=== PATIENT | female | born 1950 | race Asian ===

== ENCOUNTER 2016-09-06 07:44 | Emergency (ER) | payer MEDICARE, MEDICAID ==
[2016-09-06 07:59] VITALS: BP 131/82
[2016-09-06] MEDS ORDERED: methylPREDNISolone 125 MG* 2 ML VIAL IV ONE (08:39)
[2016-09-06] MEDS ORDERED: Famotidine IV* 10 MG/ML 2 ML (20 mg) IV SLOW PU ONE (08:40)
[2016-09-06] MEDS ORDERED: diPHENhydraMINE IV* 50 MG/ML 1 ml VIAL (BENADRYL) IV ONE (08:40)
--- NOTE | 2016-09-07 19:02 | UC ---
Neil Porras Matthew, scribed for Arabella Meneses MD on 09/06/16 at 0840 . Allergic Reaction HPI - HPI Summary HPI Summary: A 66 y/o female presents to c/o a gradually worsening diffuse hives since a week ago, which has worsened in the last 2 days. Per the daughter, the patient occasionally gets hives "out of the blue". She's had these before. They have dogs and they are unsure of the cause. Associated symptoms include itchiness. She has taken Xyzal without relief. She has numerous allergies and sees an superintendent radio communications. She began taking ibuprofen last night, but does not usually use the medication. Hx of asthma. She has been using her inhaler daily. The patient speaks Maltese and her daughter is translating and the patient agrees and declines a injection molding operator other than her daughter. Pt has lived in this country [place] and indicates she understands me. - History of Current Complaint Chief Complaint: [facility] Stated Complaint: RASH Time Seen by Provider: 09/06/16 08:17 Hx Obtained From: Patient, Family/Molecular Pathologist - The daughter translated for the patient ?: No Onset/Duration: Gradual Onset, Lasting Weeks - 1, Still Present Severity Initially: Moderate Severity Currently: Moderate Pain Intensity: 0 Pain Scale Used: 0-10 Numeric Location: Diffuse - total body Character: Pruritus, Hives Aggrevating Factor(s): Nothing Alleviating Factor(s): Other - Ibuprofen mildly improved the symptoms Associated Signs And Symptoms: Positive: Rash - Diffuse hives. Negative: Chest Pain, Difficulty Breathing, Hoarseness, Lightheadedness, Throat Tightening - Related Hx Possible Reaction To: Unknown - Allergies/Home Medications Allergies/Adverse Reactions: Allergies Allergy/AdvReac Type Severity Reaction Status Date / Time Aspirin Allergy Severe SEVERE Verified 08/31/13 12:17 STOMACH UPSET Shellfish Allergy Allergy Intermediate Rash Verified 08/31/13 12:17 Acetaminophen [From [place]] Allergy Unknown Unknown Verified 08/31/13 12:17 Reaction Details Hydrocodone [From [place]] Allergy Unknown Unknown Verified 08/31/13 12:17 Reaction Details Sulfamethoxazole Allergy Unknown Unknown Verified 08/31/13 12:17 w/Trimethoprim Reaction [From Bactrim] Details SALMON Allergy Unknown Unknown Uncoded 08/31/13 12:17 Reaction Details Home Medications: Home Medications Atorvastatin* [Lipitor 10 MG*] 1 tab PO BEDTIME 09/06/16 [History Confirmed ] Montelukast Sodium TAB* [Singulair 10 MG TAB*] 1 tab PO BEDTIME 09/06/16 [ History Confirmed 09/06/16] PMH/Surg Hx/FS Hx/Imm Hx Endocrine History Of: Denies: Diabetes, Thyroid Disease Cardiovascular History Of: Reports: Hypertension - TAKES MEDICATION Denies: Cardiac Disorders, Pacemaker/ICD Respiratory History Of: Reports: Asthma, Bronchitis Denies: COPD GI/ History Of: Reports: Gastroesophageal Reflux, Kidney Stones Denies: Ulcer Psychological History Of: Reports: Anxiety, Depression Cancer History Of: Denies: Breast Cancer - Surgical History Surgical History: Yes Surgery Procedure, Year, and Place: CATARACTS - Family History Family History: No FHx of breast CA. - Social History Lives: With Family Alcohol Use: None Substance Use Type: None Smoking Status (MU): Never Smoked Tobacco Amount Used/How Often: DEC FROM LUNG CA, PT EXPOSED TO 2ND HAND SMOKE Have You Smoked in the Last Year: No Household Exposure Type: Cigarettes Review of Systems Constitutional: Negative Skin: Other - Diffuse hives - pruritic Eyes: Negative ENT: Negative Respiratory: Negative Cardiovascular: Negative Gastrointestinal: Negative Genitourinary: Negative Motor: Negative Neurovascular: Negative Musculoskeletal: Negative Neurological: Negative Psychological: Negative All Other Systems Reviewed And Are Negative: Yes Physical Exam Triage Information Reviewed: Yes Appearance: Well-Appearing, Well-Nourished, Pain Distress - mild Vital Signs: Initial Vital Signs Temp 96.9 F 09/06/16 07:53 Pulse 93 09/06/16 07:53 Resp 16 09/06/16 07:53 BP 131/82 09/06/16 07:53 Pulse Ox 98 09/06/16 07:53 Vital Signs Reviewed: Yes Eyes: Positive: Conjunctiva Clear ENT: Positive: Normal ENT inspection, Pharynx normal Neck: Positive: Supple Respiratory: Positive: Chest non-tender, Lungs clear, Normal breath sounds, No respiratory distress Cardiovascular: Positive: RRR, No Murmur, Pulses Normal, Brisk Capillary Refill Abdomen Description: Positive: Nontender, Soft Musculoskeletal: Positive: Strength Intact, ROM Intact Neurological: Positive: Alert, Muscle Tone Normal Psychological Exam: Normal Skin Exam: Other - total body urticaria, which is worst on the back Re-Evaluation - Re-Evaluation First Eval Re-Evaluation Time: 09:38 Change: Improved Comment: Hives and itching have improved. The patient is willing to go home. Allergic Reaction Course/Dx - Course Course Of Treatment: Pt treated with IV benadryl 50mg, solumedrol 125mg and pepcid 20mg with improvement. Pt and daughter agree to discharge after noting the improvement - Differential Dx/Diagnosis Differential Diagnosis/HQI/PQRI: Anaphylaxis, Local Allergic Reaction, Urticaria Provider Diagnoses: allergic urticaria Discharge - Discharge Plan Condition: Stable Disposition: HOME Prescriptions: Famotidine TAB 40 MG(NF) [Pepcid TAB 40 MG(NF)] 40 mg PO DAILY #12 tab predniSONE TAB* [Deltasone TAB*] 10 mg PO DAILY #30 tab Patient Education Materials: Famotidine (By mouth), Prednisone (By mouth), Urticaria (ED), Allergies (ED) Referrals: Constance Lares MD [Primary Care Provider] - Additional Instructions: You should take Benadryl 50mg 4 times daily for the next 48 hours than as needed. Your dose in urgent care was at 9am. You may take it as close as every four hours. You can also continue to take xyzal as prescribed in conjunction with the Benadryl. Take the famotidine and prednisone as directed, starting tomorrow. Your blood pressure was mildly elevated today. Please be sure to have this checked again within one month with your primary care provider. RETURN TO URGENT CARE FOR ANY NEW OR WORSENING SYMPTOMS The documentation as recorded by the Neil samuels Matthew accurately reflects the service I personally performed and the decisions made by me, Arabella Meneses MD.
== END 2016-09-06 09:56 | disposition home or self-care (01) ==
LOC: UCEAST 07:44
DX: L50.0 Allergic urticaria (principal); I10 Essential (primary) hypertension; J45.909 Unspecified asthma, uncomplicated; K21.9 Gastro-esophageal reflux disease without esophagitis; F41.8 Other specified anxiety disorders; Z98.49 Cataract extraction status, unspecified eye; Z88.2 Allergy status to sulfonamides; Z88.6 Allergy status to analgesic agent; Z88.5 Allergy status to narcotic agent; Z91.013 Allergy to seafood; Z87.442 Personal history of urinary calculi; Z77.22 Contact with and (suspected) exposure to environmental tobacco smoke (acute) (chronic)
CPT/HCPCS: 96374; 96376; 99212; G0463; J1200; J2930

== ENCOUNTER 2016-09-07 22:44 | Emergency (ER) | payer MEDICARE, MEDICAID ==
[2016-09-07] MEDS ORDERED: Famotidine IV* 10 MG/ML 2 ML (20 mg) IV ONE (22:50)
[2016-09-07] MEDS ORDERED: methylPREDNISolone 125 MG* 2 ML VIAL IV ONE (22:50)
[2016-09-07] MEDS ORDERED: diPHENhydraMINE IV* 50 MG/ML 1 ml VIAL (BENADRYL) IV ONE (22:50)
[2016-09-07] MEDS ORDERED: EPINEPHrine AMP 1 MG/ML IM ONE (22:59)
[2016-09-07] MEDS ORDERED: EPINEPHrine AMP 1 MG/ML ONE (23:01)
[2016-09-07] MEDS ORDERED: NS 0.9% 1000 ML* 1,000 ML IV SCH (23:15)
[2016-09-08 00:34] VITALS: BP 115/51
[2016-09-08 02:15] LABS: Add Diff/Slide Review? Slide Review Added; Comments Flag Yes; Hematocrit 36 % (35-47); Mean Corpuscular HGB Conc 33 g/dl (31-36); Mean Corpuscular Hemoglobin 30 pg (27-31); Mean Corpuscular Volume 89 fL (80-97); Mean Platelet Volume 9 um3 (7.4-10.4); Red Blood Count 4.06 10^6/ul (4.0-5.4); Red Cell Distribution Width 14 % (10.5-15); White Blood Count 13.9 10^3/ul (3.5-10.8)
[2016-09-08 02:32] LABS: Albumin 3.6 g/dL (3.2-5.2); C Reactive Protein 23.25 mg/L (< 5.00); Calcium 8.5 mg/dL (8.6-10.3); EGFR African American 109.8 (>60); EGFR Non-African American 85.4 (>60); Total Bilirubin 0.5 mg/dL (0.2-1.0); Total Protein 6.6 g/dL (6.4-8.9)
[2016-09-08 02:34] LABS: Potassium 3.7 mmol/L (3.5-5.0)
[2016-09-08 03:04] LABS: TSH (Thyroid Stimulating Horm) 0.69 mcIU/mL (0.34-5.60)
[2016-09-08] MEDS ORDERED: hydrOXYzine HCL TAB* 50 MG PO ONE (03:19)
[2016-09-08] MEDS ORDERED: predniSONE TAB* 20 MG PO ONE (03:21)
--- NOTE | 2016-09-08 03:30 | ED ---
Gerardo Porras Salem, scribed for Florentino Ferguson MD on 09/07/16 at 2305 . Allergic Reaction/Systemic - HPI Summary HPI Summary: Patient is a 66 y/o female who presents to the ED with an allergic reaction. Her daughter present at the bedside reports that pt had a small rash and hives 8 days ago that flared up 2 days ago. Daughter took pt to at that point and was given a steroid, Benadryl, and Pepcid with alleviation of sx. She then went home with a steroid and prednisone (to take every four hours), Benadryl (4 tables per day). She was no given epinephrine. She reports hives, pruritus, throat tightening, swollen lips, and coughing. Pt has been on numerous medications for quite some time, but daughter reports that she started Atorvastatin two months ago. Pt takes her medications before bed, but has not taken anything except Atorvastatin tonight. She also reports using a new peppermint scented soap and drinking a new type of tea this week. - History of Current Complaint Chief Complaint: EDAllergicReaction Time Seen by Provider: 09/07/16 22:50 Hx Obtained From: Patient, Family/Tobacco [place] Measurer Onset/Duration: Gradual Onset, Started days ago, Still Present Timing: Intermittent Severity Initially: Moderate Severity Currently: Moderate Pain Intensity: 0 Pain Scale Used: 0-10 Numeric Location: Diffuse Character: Swelling, Pruritus, Hives Aggravating Factor(s): Other - Unknown. Alleviating Factor(s): OTC Meds, Antihistamines Associated Signs And Symptoms: Positive: Throat Tightening, Other: - Hives, pruritus, swollen lips, and coughing. - Allergies/Home Medications Allergies/Adverse Reactions: Allergies Allergy/AdvReac Type Severity Reaction Status Date / Time Aspirin Allergy Severe SEVERE Verified 08/31/13 12:17 STOMACH UPSET Shellfish Allergy Allergy Intermediate Rash Verified 08/31/13 12:17 Acetaminophen [From [place]] Allergy Unknown Unknown Verified 08/31/13 12:17 Reaction Details Hydrocodone [From [place]] Allergy Unknown Unknown Verified 08/31/13 12:17 Reaction Details Sulfamethoxazole Allergy Unknown Unknown Verified 08/31/13 12:17 w/Trimethoprim Reaction [From Bactrim] Details SALMON Allergy Unknown Unknown Uncoded 08/31/13 12:17 Reaction Details PMH/Surg Hx/FS Hx/Imm Hx Endocrine/Hematology History: Denies: Hx Diabetes, Hx Thyroid Disease Cardiovascular History: Reports: Hx Hypertension - TAKES MEDICATION Denies: Hx Pacemaker/ICD Respiratory History: Reports: Hx Asthma, Other Respiratory Problems/Disorders Denies: Hx Chronic Obstructive Pulmonary Disease (COPD) GI History: Denies: Hx Ulcer History: Reports: Hx Kidney Stones Musculoskeletal History: Reports: Other Musculoskeletal History - pain all-over , gives out when walking,sudden X2 weeks\ Sensory History: Reports: Hx Cataracts - BILAT, Hx Contacts or Glasses - GLASSES , Hx Glaucoma Denies: Hx Hearing Aid Opthamlomology History: Reports: Hx Cataracts - BILAT, Hx Contacts or Glasses - GLASSES, Hx Glaucoma Psychiatric History: Reports: Hx Anxiety, Hx Depression, Hx Panic Disorder - ANXIETY - Cancer History Hx Chemotherapy: No Hx Radiation Therapy: No - Surgical History Surgery Procedure, Year, and Place: CATARACTS Hx Anesthesia Reactions: No Infectious Disease History: Denies: Hx Clostridium Difficile, Hx Hepatitis, Hx Human Immunodeficiency Virus (HIV), Hx of Known/Suspected MRSA, Hx Shingles, Hx Tuberculosis, Hx Known/ Suspected VRE, Hx Known/Suspected VRSA, History Other Infectious Disease, Traveled Outside the [place] in Last 30 Days - Family History Known Family History: Positive: Other - No Fhx of breast CA. - Social History Alcohol Use: None Hx Substance Use: No Substance Use Type: Reports: None Hx Tobacco Use: No Smoking Status (MU): Never Smoked Tobacco Amount Used/How Often: DEC FROM LUNG CA, PT EXPOSED TO 2ND HAND SMOKE Have You Smoked in the Last Year: No Review of Systems Positive: Other - Hives, pruritus, throat tightening, and swollen lips. Positive: Cough All Other Systems Reviewed And Are Negative: Yes Physical Exam Triage Information Reviewed: Yes Vital Signs On Initial Exam: Initial Vitals Temp Pulse Resp BP Pulse Ox 99.2 F 96 24 112/95 100 09/07/16 22:46 09/07/16 22:46 09/07/16 22:46 09/07/16 22:46 09/07/16 22:46 Vital Signs Reviewed: Yes Appearance: Positive: Well-Appearing, No Pain Distress Skin: Positive: Warm, Skin Color Reflects Adequate Perfusion, Dry, Other - Hives everywhere. Head/Face: Positive: Normal Head/Face Inspection Eyes: Positive: EOMI, CALEB Neck: Positive: Supple, Nontender Respiratory/Lung Sounds: Positive: Breath Sounds Present, Other - Poor air flow. In obvious respiratory distress. Coughing. Cardiovascular: Positive: RRR Abdomen Description: Positive: Nontender, Soft Musculoskeletal: Positive: Normal, Strength/ROM Intact Neurological: Positive: Normal, Sensory/Motor Intact, Alert, Oriented to Person Place, Time Psychiatric: Positive: Affect/Mood Appropriate Diagnostics - Vital Signs Vital Signs Temp Pulse Resp BP Pulse Ox 09/07/16 22:46 99.2 F 96 24 112/95 100 - Laboratory Lab Results: Lab Results 09/08/16 09/08/16 09/08/16 Range/Units 02:05 02:05 02:05 WBC 13.9 H (3.5-10.8) 10^3/ul RBC 4.06 (4.0-5.4) 10^6/ul Hgb 12.0 (12.0-16.0) g/dl Hct 36 (35-47) % MCV 89 (80-97) fL MCH 30 (27-31) pg MCHC 33 (31-36) g/dl RDW 14 (10.5-15) % Plt Count 191 (150-450) 10^3/ul MPV 9 (7.4-10.4) um3 Neut % (Auto) 91.8 H (38-83) % Lymph % (Auto) 4.3 L (25-47) % [place] % (Auto) 3.4 (1-9) % Eos % (Auto) 0.1 (0-6) % Baso % (Auto) 0.4 (0-2) % Absolute Neuts (auto) 12.8 H (1.5-7.7) 10^3/ul Absolute Lymphs (auto) 0.6 L (1.0-4.8) 10^3/ul Absolute Monos (auto) 0.5 (0-0.8) 10^3/ul Absolute Eos (auto) 0 (0-0.6) 10^3/ul Absolute Basos (auto) 0 (0-0.2) 10^3/ul Absolute Nucleated RBC 0 10^3/ul Nucleated RBC % 0 INR (Anticoag Therapy) 0.85 L (0.89-1.11) APTT 22.7 L (26.0-36.3) seconds Sodium 138 (133-145) mmol/L Potassium 3.7 (3.5-5.0) mmol/L Chloride 109 (101-111) mmol/L Carbon Dioxide 22 (22-32) mmol/L Anion Gap 7 (2-11) mmol/L BUN 20 (6-24) mg/dL Creatinine 0.69 (0.51-0.95) mg/dL Est GFR ( Amer) 109.8 (>60) Est GFR (Non-Af Amer) 85.4 (>60) BUN/Creatinine Ratio 29.0 H (8-20) Glucose 117 H (70-100) mg/dL Lactic Acid (0.5-2.0) mmol/L Calcium 8.5 L (8.6-10.3) mg/dL Total Bilirubin 0.50 (0.2-1.0) mg/dL AST 21 (13-39) U/L ALT 17 (7-52) U/L Alkaline Phosphatase 36 (34-104) U/L Total Creatine Kinase 72 (10-223) U/L C-Reactive Protein 23.25 H (< 5.00) mg/L Total Protein 6.6 (6.4-8.9) g/dL Albumin 3.6 (3.2-5.2) g/dL Globulin 3.0 (2-4) g/dL Albumin/Globulin Ratio 1.2 (1-3) Lipase 12 (11.0-82.0) U/L TSH 0.69 (0.34-5.60) mcIU/mL 09/08/16 Range/Units 02:05 WBC (3.5-10.8) 10^3/ul RBC (4.0-5.4) 10^6/ul Hgb (12.0-16.0) g/dl Hct (35-47) % MCV (80-97) fL MCH (27-31) pg MCHC (31-36) g/dl RDW (10.5-15) % Plt Count (150-450) 10^3/ul MPV (7.4-10.4) um3 Neut % (Auto) (38-83) % Lymph % (Auto) (25-47) % [place] % (Auto) (1-9) % Eos % (Auto) (0-6) % Baso % (Auto) (0-2) % Absolute Neuts (auto) (1.5-7.7) 10^3/ul Absolute Lymphs (auto) (1.0-4.8) 10^3/ul Absolute Monos (auto) (0-0.8) 10^3/ul Absolute Eos (auto) (0-0.6) 10^3/ul Absolute Basos (auto) (0-0.2) 10^3/ul Absolute Nucleated RBC 10^3/ul Nucleated RBC % INR (Anticoag Therapy) (0.89-1.11) APTT (26.0-36.3) seconds Sodium (133-145) mmol/L Potassium (3.5-5.0) mmol/L Chloride (101-111) mmol/L Carbon Dioxide (22-32) mmol/L Anion Gap (2-11) mmol/L BUN (6-24) mg/dL Creatinine (0.51-0.95) mg/dL Est GFR ( Amer) (>60) Est GFR (Non-Af Amer) (>60) BUN/Creatinine Ratio (8-20) Glucose (70-100) mg/dL Lactic Acid 1.5 (0.5-2.0) mmol/L Calcium (8.6-10.3) mg/dL Total Bilirubin (0.2-1.0) mg/dL AST (13-39) U/L ALT (7-52) U/L Alkaline Phosphatase (34-104) U/L Total Creatine Kinase (10-223) U/L C-Reactive Protein (< 5.00) mg/L Total Protein (6.4-8.9) g/dL Albumin (3.2-5.2) g/dL Globulin (2-4) g/dL Albumin/Globulin Ratio (1-3) Lipase (11.0-82.0) U/L TSH (0.34-5.60) mcIU/mL Result Diagrams: 09/08/16 02:05 09/08/16 02:05 Lab Statement: Any lab studies that have been ordered have been reviewed, and results considered in the medical decision making process. Re-Evaluation - Re-Evaluation First Eval Re-Evaluation Time: 22:55 Second Eval Re-Evaluation Time: 23:05 Third Eval Re-Evaluation Time: 03:04 Allergic Reaction Course/Dx - Course Course Of Treatment: CRITICAL CARE TIME LESS THAN 30 MINUTES. INITIALLY, PATIENT HAD AIRWAY INVOLVEMENT. THIS IMPROVED AFTER EPI IM. NO FURTHER AIRWAY INVOLVMENT IN ED. PATIENT CONTINUES TO HAVE PURITIC HIVES. WILL ADD ATARAX 50MG PO QID AND IONCREASE THE PREDNISONE TO 60MG A DAY FOR 2 DAYS. F/U WITH PMD TODAY. ALSO SEEK DERM F/U. RETURN IF WORSE. NO OBVIOUS SYSTEMIC ILLNESS AT THIS TIME. DISCUSSED POSSIBLE ALLERGENS TO INCLUDE HOME MEDS/SOAPS/FOOD. DISCHARGE HOME STABLE. - Diagnoses Provider Diagnoses: Allergic reaction Discharge - Discharge Plan Condition: Stable Disposition: HOME Prescriptions: Epinephrine [Epipen 2-Pepe] 0.3 mg IM ONCE PRN #1 inj PRN Reason: Allergy Symptoms hydrOXYzine HCL TAB* [Atarax TAB 50 MG *] 50 mg PO QID PRN #30 tab PRN Reason: Allergy Symptoms Patient Education Materials: General Allergic Reaction (ED) Referrals: Constance Lares MD [Primary Care Provider] - Additional Instructions: FOLLOW UP WITH YOUR DOCTOR. CALL DR LARES TODAY FOR FOLLOW UP. DISCUSS SEEING A MANAGER TRANSPORTATION WITH DR LARES. RETURN TO THE EMERGENCY DEPARTMENT FOR ANY WORSENING OF YOUR CONDITION; DIFFICULTY BREATHING OR SWALLOWING, YOU FEEL ILL OR QUESTIONS OR CONCERNS. The documentation as recorded by the Gerardo samuels Salem accurately reflects the service I personally performed and the decisions made by me, Florentino Ferguson MD.
== END 2016-09-08 04:06 | disposition home or self-care (01) ==
LOC: ED 22:44
DX: R07.0 Pain in throat (principal); L50.9 Urticaria, unspecified; L29.9 Pruritus, unspecified; T78.40XA Allergy, unspecified, initial encounter; X58.XXXA Exposure to other specified factors, initial encounter; R05 Cough
CPT/HCPCS: 36415; 80053; 82550; 83605; 83690; 84443; 85025; 85610; 85730; 86140; 96374; 96375; 99283; A9270-GY; J0171; J1200; J2930; J7512

== ENCOUNTER 2016-09-08 22:13 | Inpatient (IN) | payer MEDICARE, MEDICAID ==
[2016-09-08] MEDS ORDERED: methylPREDNISolone 125 MG* 2 ML VIAL ONE (22:29)
[2016-09-08] MEDS ORDERED: diPHENhydraMINE IV* 50 MG/ML 1 ml VIAL (BENADRYL) ONE (22:29)
[2016-09-08] MEDS ORDERED: diPHENhydraMINE IV* 50 MG/ML 1 ml VIAL (BENADRYL) IV ONE (22:32)
[2016-09-08] MEDS ORDERED: methylPREDNISolone 125 MG* 2 ML VIAL IV ONE (22:32)
[2016-09-08] MEDS ORDERED: EPINEPHrine AMP 1 MG/ML IM ONE (23:16)
[2016-09-08] MEDS ORDERED: EPINEPHrine AMP 1 MG/ML ONE (23:17)
--- NOTE | 2016-09-09 00:43 | HP ---
H&P (Free Text) History and Physical: PCP: Gurwinder Lares MD Date/Time of Evaluation: 09/09/2016 0020 CC: rash, lip swelling HPI: Mrs Portillo is a 66YO [place] female with borderline [place] skills whose daughter is present for assistance. This is her 3rd presentation for generalized pruritic urticarial rash. She was seen initially by Maribel Meneses MD at urgent care 09/06/2016 for worsening pruritic hives of 1week duration which she had had before. She has a HX of numerous allergies and follows with an professional fee coder. She was diagnosed with allergic urticaria, treated with IV diphenhydramine, IV methylprednisolone, & famotidine with improvement and discharged on prednisone & diphenhydramine. She represented to [facility] [place] being seen by Yash [facility] [place] ED reporting worsening hives, throat tightness , swollen lips, & cough. Atorvastatin was noted to be her newest medication started 2 months previously. Administration of epinephrine alleviated her airway symptoms. Allergic reaction was diagnosed and she was discharged with an Epi-pen, increased prednisone, & hydroxyzine. Tonight she had return of the swollen lips, mild throat tightness, and worsening of her pruritic urticaria. At some point, she had been advised to stop her losartan of which her last dose was 09/07. There is no report of F/C, sweats, cough, congestion, chest pain, N/V /D, or other issues. WBCs are 17k 82% neutrophils which is not surprising given the recent steroids. K+ is 3.0. CRP is 37. ECG is NSR rate 68, no ischemia. PMedHx asthma HTN HLD osteoporosis OA multiple allergies Ambulatory Orders Alendronate Sodium 1 tab PO WEEKLY 06/15/13 Budesonide-Formoterol Fumarate [Symbicort 160-4.5 Mcg/Act] 2 puff IN BID Losartan Potassium 100 mg PO DAILY 06/15/13 Sertraline HCl 150 mg PO DAILY 06/15/13 Cetirizine HCl 5 mg PO DAILY 08/31/13 Diclofenac Sodium EC TAB* 50 mg PO BID 08/31/13 Albuterol Sulfate [Proair Hfa] 1 puff IN QID PRN 12/07/13 Atorvastatin* [Lipitor 10 MG*] 1 tab PO BEDTIME 09/06/16 Famotidine TAB 40 MG(NF) [Pepcid TAB 40 MG(NF)] 40 mg PO DAILY #12 tab 09/06/16 Montelukast Sodium TAB* [Singulair 10 MG TAB*] 1 tab PO BEDTIME 09/06/16 predniSONE TAB* [Deltasone TAB*] 10 mg PO DAILY #30 tab 09/06/16 Epinephrine [Epipen 2-Pepe] 0.3 mg IM ONCE PRN #1 inj 09/08/16 hydrOXYzine HCL TAB* [Atarax TAB 50 MG *] 50 mg PO QID PRN #30 tab 09/08/16 Allergies Aspirin Allergy (Severe, Verified 08/31/13 12:17) SEVERE STOMACH UPSET Shellfish Allergy Allergy (Intermediate, Verified 08/31/13 12:17) Rash Acetaminophen [From [place]] Allergy (Unknown, Verified 08/31/13 12:17) Unknown Reaction Details Hydrocodone [From [place]] Allergy (Unknown, Verified 08/31/13 12:17) Unknown Reaction Details Sulfamethoxazole w/Trimethoprim [From Bactrim] Allergy (Unknown, Verified 12:17) Unknown Reaction Details SALMON Allergy (Unknown, Uncoded 08/31/13 12:17) Unknown Reaction Details PSurgHx denies SocHx: no tobacco, alcohol, or recreational drugs; full code status FamHx: positive for HTN, HLD ROS: as above, otherwise reviewed and all were negative Constitutional: NAD, normally developed, overweight [place] female vitals: Vital Signs Temp 37.4 C 09/08/16 23:22 Pulse 88 09/09/16 03:00 Resp 19 09/09/16 03:00 BP 137/74 09/09/16 03:00 Pulse Ox 96 09/09/16 03:00 Intake & Output 09/08/16 09/08/16 09/09/16 11:59 23:59 11:59 Intake Total 4 Balance 4 Weight 61.235 kg Intake: IV Fluids 4 HEENM: atraumatic; sclera/conjunctiva: non-icteric/clear; hearing: clinically intact; oropharynx: clear, mucosa moist Neck: soft tissue: non-tender; thyroid: normal Pulmonary: clear to auscultation bilaterally, no strider, good aeration, no accessory muscle use CV: RR/RR, normal S1S2, no carotid bruit, no jugular venous distention, 2+ B DP/ PT, no edema Abdominal: soft, non-distended, non-tender, no rebound/guarding/rigidity, normoactive bowel sounds, no hepatosplenomegaly or masses, no costovertebral angle tenderness Musculoskeletal: general: grossly intact; gait: stable Integumental: diffuse urticaria worst on torso but involving extremities x4 with areas of excoriation Psychiatric orientation: AA&O to PPS affect: calm mood: cooperative eye contact: fair to good content: reliable responses: [place] understanding appears better than production insight: fair Testing: Lab Results 09/09/16 09/09/16 09/09/16 Range/Units 01:55 01:55 01:55 WBC 17.1 H (3.5-10.8) 10^3/ul RBC 4.31 (4.0-5.4) 10^6/ul Hgb 12.5 (12.0-16.0) g/dl Hct 38 (35-47) % MCV 89 (80-97) fL MCH 29 (27-31) pg MCHC 33 (31-36) g/dl RDW 14 (10.5-15) % Plt Count 246 (150-450) 10^3/ul MPV 9 (7.4-10.4) um3 Neut % (Auto) 82.9 (38-83) % Lymph % (Auto) 11.3 L (25-47) % [place] % (Auto) 5.7 (1-9) % Eos % (Auto) 0 (0-6) % Baso % (Auto) 0.1 (0-2) % Absolute Neuts (auto) 14.2 H (1.5-7.7) 10^3/ul Absolute Lymphs (auto) 1.9 (1.0-4.8) 10^3/ul Absolute Monos (auto) 1.0 H (0-0.8) 10^3/ul Absolute Eos (auto) 0 (0-0.6) 10^3/ul Absolute Basos (auto) 0 (0-0.2) 10^3/ul Absolute Nucleated RBC 0.01 10^3/ul Nucleated RBC % 0.1 ESR 32 (0-40) mm/Hr INR (Anticoag Therapy) 0.86 L (0.89-1.11) Sodium 142 (133-145) mmol/L Potassium 3.0 L (3.5-5.0) mmol/L Chloride 108 (101-111) mmol/L Carbon Dioxide 20 L (22-32) mmol/L Anion Gap 14 H (2-11) mmol/L BUN 18 (6-24) mg/dL Creatinine 0.75 (0.51-0.95) mg/dL Est GFR ( Amer) 99.7 (>60) Est GFR (Non-Af Amer) 77.6 (>60) BUN/Creatinine Ratio 24.0 H (8-20) Glucose 169 H (70-100) mg/dL Calcium 8.9 (8.6-10.3) mg/dL C-Reactive Protein 37.96 H (< 5.00) mg/L ECG, personally reviewed: NSR rate 68, no ischemia Impression: 66F presenting with angioneurotic edema 2nd losartan DIAGNOSIS & PLAN Primary angioneurotic edema 2nd losartan : remain off losartan : continue IV methylprednisolone, PO famotidine, & PO hydroxyzine : informed patient/daughter the 1/2 life of losartan can be up to about 10hours and her symptoms could continue until 5-10 1/2 lives have passed (2 to 4 days) : supportive care Secondary HTN : monitor & initiate alternative agent as indicated HLD : continue atorvastatin asthma : albuterol nebs PRN Admission Rational: observation for angioneurotic edema w/ airway symptoms DVTp: heparin SQ Code Status: full HCP: daughter
[2016-09-09] MEDS ORDERED: Famotidine IV* 10 MG/ML 2 ML (20 mg) IV SLOW PU ONE (01:16)
[2016-09-09] MEDS ORDERED: EPINEPHrine AMP 1 MG/ML IM ONE (01:17)
[2016-09-09] MEDS ORDERED: Famotidine IV* 10 MG/ML 2 ML (20 mg) ONE (01:19)
[2016-09-09 02:49] LABS: Hematocrit 38 % (35-47); Hemoglobin 12.5 g/dl (12.0-16.0); Mean Corpuscular HGB Conc 33 g/dl (31-36); Mean Corpuscular Hemoglobin 29 pg (27-31); Mean Corpuscular Volume 89 fL (80-97); Mean Platelet Volume 9 um3 (7.4-10.4); Red Blood Count 4.31 10^6/ul (4.0-5.4); Red Cell Distribution Width 14 % (10.5-15); White Blood Count 17.1 10^3/ul (3.5-10.8)
[2016-09-09 03:00] LABS: C Reactive Protein 37.96 mg/L (< 5.00); Calcium 8.9 mg/dL (8.6-10.3); EGFR African American 99.7 (>60); EGFR Non-African American 77.6 (>60)
[2016-09-09 03:32] LABS: Erythrocyte Sed Rate 32 mm/Hr (0-40)
[2016-09-09] MEDS ORDERED: Melatonin (NF) 3 MG TAB PO PRN (04:04)
[2016-09-09] MEDS ORDERED: LORazepam INJ* 2 MG/ML 1 ML VIAL IV PRN (04:04)
[2016-09-09] MEDS ORDERED: Albuterol 2.5 MG/3 ML NEB.SOL* (0.083%) INH PRN (04:04)
[2016-09-09] MEDS ORDERED: Ondansetron INJ* 2 MG/ML VIAL IV PRN (04:04)
[2016-09-09] MEDS ORDERED: Omeprazole CAP* 20 MG PO SCH (06:00)
[2016-09-09] MEDS ORDERED: Potassium Chlor TAB* 20 MEQ TAB.ER PO ONE (06:00)
[2016-09-09] MEDS: hydrOXYzine HCL TAB* 50 MG PO PRN ×3 (06:00→20:24)
[2016-09-09] MEDS: Famotidine TAB* 20 MG PO SCH ×4 (07:59→20:20)
[2016-09-09] MEDS ORDERED: Docusate CAP* 100 MG PO PRN (08:25)
--- NOTE | 2016-09-09 08:32 | PN ---
Subjective Date of Service: 09/09/16 Interval History: CC: hives and mouth/lip swelling Pt states overall her mouth swelling is improved. She denies any tongue swelling. No SOB. She states he is very itchy everywhere. She does describe having some pain in her mouth. Objective Active Medications: Albuterol (Ventolin 2.5 Mg/3 Ml Neb.Natalie*) 2.5 mg INH Q2H PRN PRN Reason: SOB/WHEEZING Famotidine (Pepcid Tab*) 20 mg PO QID [facility] Last Admin: 09/09/16 07:59 Dose: 20 mg Heparin Sodium (Porcine) (Heparin Vial(*)) 5,000 units SUBCUT Q8HR [facility] Hydroxyzine HCl (Atarax Tab*) 50 mg PO Q6H PRN PRN Reason: hives/itching Last Admin: 09/09/16 06:00 Dose: 50 mg Melatonin (Melatonin (Nf)) 3 mg PO BEDTIME PRN; Protocol PRN Reason: Sleep Methylprednisolone Sodium Succinate (Solu-Medrol 40 Mg) 40 mg IV Q8H [facility] Ondansetron HCl (Zofran Inj*) 4 mg IV Q6H PRN PRN Reason: NAUSEA Vital Signs 09/09/16 09/09/16 09/09/16 00:30 01:00 01:31 Temperature Pulse Rate 83 80 76 Respiratory 15 21 18 Rate Blood Pressure 137/73 144/112 168/76 (mmHg) O2 Sat by Pulse 97 97 100 Oximetry 09/09/16 09/09/16 09/09/16 02:00 02:30 03:00 Temperature Pulse Rate 89 78 88 Respiratory 16 15 19 Rate Blood Pressure 130/63 119/64 137/74 (mmHg) O2 Sat by Pulse 95 94 96 Oximetry 09/09/16 09/09/16 03:42 04:00 Temperature 98.2 F 98.2 F Pulse Rate 71 71 Respiratory 18 16 Rate Blood Pressure 127/64 127/64 (mmHg) O2 Sat by Pulse 99 99 Oximetry Oxygen Devices in Use Now: None Appearance: Middle aged female lying in bed, NAD Eyes: No Scleral Icterus Ears/Nose/Mouth/Throat: Mucous Membranes Moist Respiratory: Symmetrical Chest Expansion and Respiratory Effort, Clear to Auscultation Cardiovascular: NL Sounds; No Murmurs; No JVD, RRR, No Edema Abdominal: NL Sounds; No Tenderness; No Distention Extremities: No Clubbing, Cyanosis Skin: No Nodules or Sclerosis, - - diffuse urticarial rash on arms, neck, chest , abdomen, back, less prominent on the legs Neurological: Alert and Oriented x 3 Result Diagrams: 09/09/16 01:55 09/09/16 01:55 Assess/Plan/Problems-Billing Ms Portillo is a 66 yo F who has a h/o HTN, HLD and asthma who presented to the ER with c/o hives and mouth/lip swelling that has progressed despite being on prednisone. - Patient Problems (1) Angioedema Current Visit: Yes Status: Acute Code(s): T78.3XXA - ANGIONEUROTIC EDEMA, INITIAL ENCOUNTER SNOMED Code(s): 85807890 Comment: The patient was felt to have developed angioedema and hives secondary to losartan. She had been on this medication for about 2 years. It is not clear however it this truly is what has lead to her angioedema/allergic reaction. THe losartan has been discontinued and she should never go back on this class of medication. Will continue solumedrol 40mg IV q8hr, famotidine, benadryl and atarax. Her mouth/lip swelling has improved. She no longer feels any throat tightness. Will monitor closely for signs of airway compromise. (2) HTN (hypertension) Current Visit: Yes Status: Acute Code(s): I10 - ESSENTIAL (PRIMARY) HYPERTENSION SNOMED Code(s): 90755862 Comment: BP is under good control not on any antihypertensive medications. Continue to monitor. (3) HLD (hyperlipidemia) Current Visit: Yes Status: Acute Code(s): E78.5 - HYPERLIPIDEMIA, UNSPECIFIED SNOMED Code(s): 33474615 Comment: Lipitor on hold as this was her newest medication and initially the hives were attributed to this. Will continue to hold lipitor until her allergic reaction has resolved and then the lipitor can be attempted to be added back. (4) Asthma Current Visit: Yes Status: Acute Code(s): J45.909 - UNSPECIFIED ASTHMA, UNCOMPLICATED SNOMED Code(s): 060771188 Comment: No wheezing on exam. Continue prn albuterol. (5) DVT prophylaxis Current Visit: Yes Status: Acute Code(s): UDH4410 - SNOMED Code(s): 520539136 Comment: SQ heparin (6) Full code status Current Visit: Yes Status: Acute Code(s): Z78.9 - OTHER SPECIFIED HEALTH STATUS SNOMED Code(s): 624851708
[2016-09-09] MEDS ORDERED: Docusate CAP* 100 MG PO SCH (09:00)
[2016-09-09] MEDS: LORazepam INJ* 2 MG/ML 1 ML VIAL IV PRN ×2 (09:05→17:22)
[2016-09-09] MEDS: methylPREDNISolone SOD 40 MG* 1 ML VIAL IV SCH ×2 (09:05→17:22)
[2016-09-09] MEDS: diPHENhydraMINE PO* 50 MG PO PRN ×2 (10:13→21:25)
--- NOTE | 2016-09-09 10:44 | ED ---
Madelaine Porras Rebecca, scribed for Arabella Meneses MD on 09/08/16 at 2231 . Allergic Reaction/Systemic - HPI Summary HPI Summary: Pt is a 66 y/o F from [facility] accompanied by her daughter who is acting as an surgical rn who comes to ED p/w allergic reaction. Pt c/o swelling on the face that began at 1530 and has been constant since onset. Sx aggravated and alleviated by nothing. Denies hoarse voice. Pt was evaluated last night at [facility] for similar symptoms, when she was given Epi, which improved sx. She was D/C to home with an Rx for Prednisone 60 mg. Daughter reports she has been giving the pt Benadryl every 4 hours,with the last dose being at 1830 today. She has not taken a dose of Prednisone, since she received a dose in the ED. Pt was seen by myself (Dr. Meneses) in urgent care on 09/06/16 and given solumedrol 125mg IV, benadryl 50mg IV and pepcid 20mg IV and advised to continue prednisone taper, pepcid 40mg daily and benadryl 50mg qid x 48 hrs, then prn. This ED visit is pt's third presentation for the same urticaria, despite treatment and now with lip swelling. Medication list: DICLOFENAC SOD EC (50 mg), PREDNISONE 60 mg, SERTRALINE HCL ( 100 mg), ATORVASTATIN (10 mg), MONTELUKAST SOD (10 mg), LOSARTAN POTASSIUM (100 mg). - History of Current Complaint Chief Complaint: EDAllergicReaction Hx Obtained From: Patient, Family/Progressive Care Nurse - Daughter acting as an surgical rn Onset/Duration: Sudden Onset, Still Present Timing: Constant Severity Currently: None Pain Intensity: 0 Pain Scale Used: 0-10 Numeric Location: Discrete @ - Face Character: Swelling, Pruritus, Hives Aggravating Factor(s): Nothing Alleviating Factor(s): Nothing Associated Signs And Symptoms: Positive: Other: - lip swelling. Negative: Chest Pain, Hoarseness, Throat Tightening - Related Hx Possible Reaction To: Medications - diclofenac, losartan - Allergies/Home Medications Allergies/Adverse Reactions: Allergies Allergy/AdvReac Type Severity Reaction Status Date / Time Aspirin Allergy Severe SEVERE Verified 08/31/13 12:17 STOMACH UPSET Shellfish Allergy Allergy Intermediate Rash Verified 08/31/13 12:17 Acetaminophen [From [place]] Allergy Unknown Unknown Verified 08/31/13 12:17 Reaction Details Hydrocodone [From [place]] Allergy Unknown Unknown Verified 08/31/13 12:17 Reaction Details Sulfamethoxazole Allergy Unknown Unknown Verified 08/31/13 12:17 w/Trimethoprim Reaction [From Bactrim] Details SALMON Allergy Unknown Unknown Uncoded 08/31/13 12:17 Reaction Details Home Medications: Home Medications Diphenhydramine HCl [Benadryl Allergy 25 MG TAB] 50 mg PO Q4HR 09/09/16 [ History Confirmed 09/09/16] LevoCETirizine TAB (NF) [Xyzal TAB (NF)] 1 tab PO DAILY 09/09/16 [History Confirmed 09/09/16] Montelukast Sodium TAB* [Singulair TAB*] 10 mg PO DAILY 09/09/16 [History Confirmed 09/09/16] predniSONE TAB* [Deltasone TAB*] 60 mg PO DAILY 09/09/16 [History Confirmed ] PMH/Surg Hx/FS Hx/Imm Hx Endocrine/Hematology History: Denies: Hx Diabetes, Hx Thyroid Disease Cardiovascular History: Reports: Hx Hypertension Denies: Hx Pacemaker/ICD Respiratory History: Reports: Hx Asthma Denies: Hx Chronic Obstructive Pulmonary Disease (COPD) GI History: Denies: Hx Ulcer History: Reports: Hx Kidney Stones Musculoskeletal History: Reports: Other Musculoskeletal History - pain all-over , gives out when walking,sudden X2 weeks\ Sensory History: Reports: Hx Cataracts - BILAT, Hx Contacts or Glasses - GLASSES , Hx Glaucoma Denies: Hx Hearing Aid Opthamlomology History: Reports: Hx Cataracts - BILAT, Hx Contacts or Glasses - GLASSES, Hx Glaucoma Psychiatric History: Reports: Hx Anxiety, Hx Depression, Hx Panic Disorder - ANXIETY - Cancer History Hx Chemotherapy: No Hx Radiation Therapy: No - Surgical History Surgery Procedure, Year, and Place: CATARACTS Hx Anesthesia Reactions: No Infectious Disease History: Denies: Hx Clostridium Difficile, Hx Hepatitis, Hx Human Immunodeficiency Virus (HIV), Hx of Known/Suspected MRSA, Hx Shingles, Hx Tuberculosis, Hx Known/ Suspected VRE, Hx Known/Suspected VRSA, History Other Infectious Disease, Traveled Outside the [place] in Last 30 Days - Family History Known Family History: Positive: Other - No Fhx of breast CA. Family History: No FHx of breast CA. - Social History Alcohol Use: None Hx Substance Use: No Substance Use Type: Reports: None Hx Tobacco Use: No Smoking Status (MU): Never Smoked Tobacco Amount Used/How Often: DEC FROM LUNG CA, PT EXPOSED TO 2ND HAND SMOKE Have You Smoked in the Last Year: No Review of Systems Constitutional: Negative Positive: Other - Denies hoarseness Cardiovascular: Negative Respiratory: Negative Positive: Other - Facial swelling, diffuse urticaria, extremely pruritic Neurological: Negative Psychological: Normal All Other Systems Reviewed And Are Negative: Yes Physical Exam Triage Information Reviewed: Yes Vital Signs On Initial Exam: Initial Vitals Temp Pulse Resp BP Pulse Ox 97.4 F 82 18 159/84 100 09/08/16 22:15 09/08/16 22:15 09/08/16 22:15 09/08/16 22:15 09/08/16 22:15 Vital Signs Reviewed: Yes Appearance: Positive: Well-Nourished, Ill-Appearing, Pain Distress - Patient visibly uncomfortable Skin: Positive: Warm, Other - Total body urticaria, swollen lips and mouth Eyes: Positive: Conjunctiva Clear ENT: Positive: Pharynx normal, Other - no tongue swelling, no uvula edema. Negative: Muffled/hoarse voice Neck: Positive: Supple Respiratory/Lung Sounds: Positive: Clear to Auscultation, Breath Sounds Present , Other - No repsiratory distress Cardiovascular: Positive: RRR, Other - brisk capillary refill, pulses normal. Negative: Murmur Abdomen Description: Positive: Nontender, Soft Musculoskeletal: Positive: Strength/ROM Intact Neurological: Positive: Alert, Oriented to Person Place, Time, Other - Muscle tone normal. Negative: Facial Droop, Focal Deficit @, Slurred Speech Psychiatric: Positive: Normal Diagnostics - Vital Signs Vital Signs Temp Pulse Resp BP Pulse Ox 09/08/16 22:15 97.4 F 82 18 159/84 100 - Laboratory Result Diagrams: 09/09/16 01:55 09/09/16 01:55 Lab Statement: Any lab studies that have been ordered have been reviewed, and results considered in the medical decision making process. - EKG 0105 Cardiac Rate: NL - 68 bpm EKG Rhythm: Sinus Rhythm EKG Interpretation: Normal AV, normal IV ocnduction time, normal axis, no acute changes Re-Evaluation - Re-Evaluation First Eval Re-Evaluation Time: 23:18 Change: Unchanged Comment: Pt continues to p/w unimproved swelling after Benadryl and Solu-Medrol administration. Second Eval Re-Evaluation Time: 01:19 Change: Unchanged Comment: Discussed EKG results and the plan for treatment. Explained that she will be receiving Epi and Pepcid again, as they improved sx previously. 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 Denies hoarseness. Pt was evaluated last night for similar sx and was given Epi, which improved sx, and was in urgent care 09/06/16 and treated for similar symptoms. Pt medications reviewed this visit. Allergies noted. WBC 17.1. INR 0.86. CRP 37.96. Given Pepcid, Benadryl and Solu-medrol via IV and Epinephrine IM x2 in the course of the ED. Discussed care of pt with Dr. Sebastian, hospitalist, who accepted pt for admission. Pt will be admitted to hospitalist services with a Dx of angioedema. - Diagnoses Differential Diagnosis/HQI/PQRI: Positive: Angioedema, Local Allergic Reaction, Urticaria Provider Diagnoses: Angioedema, Urticaria - Provider Notifications Patient Care Discussed With: Dr. Sebastian, hospitalist, who accepts pt for admission. Time Discussed With Above Provider: 23:50 Discharge - Discharge Plan Condition: Good Disposition: ADMITTED TO [facility] documentation as recorded by the Madelaine samuels Rebecca accurately reflects the service I personally performed and the decisions made by me, Arabella Meneses MD.
[2016-09-09] MEDS ORDERED: Calcium Carbonate CHEW TAB* 500 MG (TUMS) PO PRN (22:07)
[2016-09-09] MEDS: Moisturizing CREAM* 113 GM JAR TOPICAL SCH (23:58)
[2016-09-10] MEDS: methylPREDNISolone SOD 40 MG* 1 ML VIAL IV SCH ×3 (01:26→16:45)
[2016-09-10] MEDS: hydrOXYzine HCL TAB* 50 MG PO PRN ×3 (05:51→19:19)
[2016-09-10] MEDS: Heparin VIAL(*) 5000 UNITS/ML VIAL (FIVE THOUSAND) SUBCUT SCH ×3 (05:53→21:39)
[2016-09-10] MEDS: Moisturizing CREAM* 113 GM JAR TOPICAL SCH ×4 (06:12→19:51)
[2016-09-10 07:05] LABS: Hematocrit 39 % (35-47); Hemoglobin 13.3 g/dl (12.0-16.0); Mean Corpuscular HGB Conc 34 g/dl (31-36); Mean Corpuscular Hemoglobin 30 pg (27-31); Mean Corpuscular Volume 88 fL (80-97); Mean Platelet Volume 9 um3 (7.4-10.4); Red Blood Count 4.47 10^6/ul (4.0-5.4); Red Cell Distribution Width 14 % (10.5-15); White Blood Count 10.3 10^3/ul (3.5-10.8)
[2016-09-10 07:25] LABS: BUN/Creatinine Ratio 27.1 (8-20); Calcium 8.9 mg/dL (8.6-10.3); Potassium 3.8 mmol/L (3.5-5.0)
[2016-09-10] MEDS: diPHENhydraMINE PO* 50 MG PO PRN ×3 (07:36→21:40)
[2016-09-10] MEDS: Famotidine TAB* 20 MG PO SCH ×4 (07:36→19:19)
[2016-09-10] MEDS ORDERED: methylPREDNISolone SOD 40 MG* 1 ML VIAL IV SCH (09:00)
--- NOTE | 2016-09-10 10:47 | PN ---
Subjective Date of Service: 09/10/16 Interval History: Pt with severe itching still. Her entire body is covered in hives. She states she can not stop itching. She would like to sleep but hasn't been able to because of the itching. She thinks her lips are still slightly swollen. She feels sharp pain in her throat when swallowing. She still feels a tightness in her throat. Objective Active Medications: Albuterol (Ventolin 2.5 Mg/3 Ml Neb.Natalie*) 2.5 mg INH Q2H PRN PRN Reason: SOB/WHEEZING Calcium Carbonate (Tums*) 500 mg PO Q4H PRN PRN Reason: INDIGESTION Diphenhydramine HCl (Benadryl Po*) 50 mg PO Q4H PRN PRN Reason: ITCHING Docusate Sodium (Colace Cap*) 200 mg PO BID PRN PRN Reason: CONSTIPATION Last Admin: 09/10/16 01:27 Dose: 200 mg Famotidine (Pepcid Tab*) 20 mg PO QID [facility] Last Admin: 09/10/16 07:36 Dose: 20 mg Heparin Sodium (Porcine) (Heparin Vial(*)) 5,000 units SUBCUT Q8HR [facility] Last Admin: 09/10/16 05:53 Dose: Not Given Hydroxyzine HCl (Atarax Tab*) 50 mg PO Q6H PRN PRN Reason: hives/itching Last Admin: 09/10/16 05:51 Dose: 50 mg Lorazepam (Ativan Inj*) 0.5 mg IV Q6HR PRN PRN Reason: ITCHING Last Admin: 09/09/16 17:22 Dose: 0.5 mg Melatonin (Melatonin (Nf)) 3 mg PO BEDTIME PRN; Protocol PRN Reason: Sleep Methylprednisolone Sodium Succinate (Solu-Medrol 40 Mg) 40 mg IV Q8H [facility] Last Admin: 09/10/16 07:37 Dose: 40 mg Multi-Ingredient Ointment (Hydrocerin*) 1 applic TOPICAL TID [facility] Last Admin: 09/10/16 07:40 Dose: Not Given Ondansetron HCl (Zofran Inj*) 4 mg IV Q6H PRN PRN Reason: NAUSEA Vital Signs 09/09/16 09/09/16 09/09/16 11:18 12:13 15:15 Temperature 98.0 F Pulse Rate 65 67 Respiratory 16 20 20 Rate Blood Pressure 118/66 119/76 (mmHg) O2 Sat by Pulse 97 100 Oximetry 09/09/16 09/09/16 09/09/16 17:22 18:22 19:33 Temperature 98.2 F Pulse Rate 74 Respiratory 18 18 24 Rate Blood Pressure 146/76 (mmHg) O2 Sat by Pulse 98 Oximetry 09/09/16 09/09/16 09/10/16 21:25 23:25 01:32 Temperature 98.4 F Pulse Rate 87 Respiratory 16 16 18 Rate Blood Pressure 122/77 (mmHg) O2 Sat by Pulse 96 Oximetry 09/10/16 09/10/16 09/10/16 07:36 07:38 09:12 Temperature 97.9 F Pulse Rate 71 Respiratory 16 16 14 Rate Blood Pressure 133/91 (mmHg) O2 Sat by Pulse 100 Oximetry Oxygen Devices in Use Now: None Appearance: Middle aged female sitting up in bed, NAD Eyes: No Scleral Icterus Ears/Nose/Mouth/Throat: Mucous Membranes Moist, - - lips are still slightly swollen (improved some from yesterday), posterior pharynx slightly erythematous Respiratory: Symmetrical Chest Expansion and Respiratory Effort, Clear to Auscultation Cardiovascular: NL Sounds; No Murmurs; No JVD, RRR, No Edema Abdominal: NL Sounds; No Tenderness; No Distention Extremities: No Clubbing, Cyanosis Skin: No Nodules or Sclerosis, - - diffuse hives all over the patient's body, excoriatons noted on arms, back, legs Neurological: Alert and Oriented x 3 Result Diagrams: 09/10/16 06:50 09/10/16 06:50 Assess/Plan/Problems-Billing Ms Portillo is a 66 yo F who has a h/o HTN, HLD and asthma who presented to the ER with c/o hives and mouth/lip swelling that has progressed despite being on prednisone. - Patient Problems (1) Angioedema Current Visit: Yes Status: Acute Code(s): T78.3XXA - ANGIONEUROTIC EDEMA, INITIAL ENCOUNTER SNOMED Code(s): 63739997 Comment: The patient is again having throat tightness but more sharp pain with swallowing. Will continue IV solumedrol, famotidine, benadryl q4hr prn, atarax q6hr prn and ativan. ? allergic rxn from losartan vs lipitor vs other non -medication exposure. No signs of airway compromise. Continue inpatient management for severe allergic rxn. (2) HTN (hypertension) Current Visit: Yes Status: Acute Code(s): I10 - ESSENTIAL (PRIMARY) HYPERTENSION SNOMED Code(s): 19743321 Comment: BP is under good control not on any antihypertensive medications. Continue to monitor. (3) HLD (hyperlipidemia) Current Visit: Yes Status: Acute Code(s): E78.5 - HYPERLIPIDEMIA, UNSPECIFIED SNOMED Code(s): 53329493 Comment: Lipitor on hold as this was her newest medication and initially the hives were attributed to this. (4) Asthma Current Visit: Yes Status: Acute Code(s): J45.909 - UNSPECIFIED ASTHMA, UNCOMPLICATED SNOMED Code(s): 258257344 Comment: No wheezing on exam. Continue prn albuterol. (5) DVT prophylaxis Current Visit: Yes Status: Acute Code(s): INF5164 - SNOMED Code(s): 403826418 Comment: SQ heparin (6) Full code status Current Visit: Yes Status: Acute Code(s): Z78.9 - OTHER SPECIFIED HEALTH STATUS SNOMED Code(s): 454697960
[2016-09-10] MEDS: Montelukast Sodium TAB* 10 MG PO SCH (11:55)
[2016-09-11] MEDS: methylPREDNISolone SOD 40 MG* 1 ML VIAL IV SCH ×4 (00:09→23:57)
[2016-09-11] MEDS: LORazepam INJ* 2 MG/ML 1 ML VIAL IV PRN ×3 (00:09→21:49)
[2016-09-11] MEDS: diPHENhydraMINE PO* 50 MG PO PRN ×3 (03:52→19:35)
[2016-09-11] MEDS: Heparin VIAL(*) 5000 UNITS/ML VIAL (FIVE THOUSAND) SUBCUT SCH ×3 (06:10→21:48)
[2016-09-11] MEDS: hydrOXYzine HCL TAB* 50 MG PO PRN ×3 (08:31→23:57)
[2016-09-11] MEDS: Famotidine TAB* 20 MG PO SCH ×4 (08:31→19:35)
[2016-09-11] MEDS: Montelukast Sodium TAB* 10 MG PO SCH (08:31)
[2016-09-11] MEDS: Moisturizing CREAM* 113 GM JAR TOPICAL SCH ×3 (08:31→19:35)
--- NOTE | 2016-09-11 14:13 | PN ---
Subjective Date of Service: 09/11/16 Interval History: Pt is still incredibly itchy. She states she is not sleeping because of itching so bad. She does not think her lips are swollen any further. She states her throat feels less painful, it does not feel tight. Objective Active Medications: Albuterol (Ventolin 2.5 Mg/3 Ml Neb.Natalie*) 2.5 mg INH Q2H PRN PRN Reason: SOB/WHEEZING Calcium Carbonate (Tums*) 500 mg PO Q4H PRN PRN Reason: INDIGESTION Diphenhydramine HCl (Benadryl Po*) 50 mg PO Q4H PRN PRN Reason: ITCHING Last Admin: 09/11/16 13:14 Dose: 50 mg Docusate Sodium (Colace Cap*) 200 mg PO BID PRN PRN Reason: CONSTIPATION Last Admin: 09/10/16 01:27 Dose: 200 mg Famotidine (Pepcid Tab*) 20 mg PO QID [facility] Last Admin: 09/11/16 13:14 Dose: 20 mg Heparin Sodium (Porcine) (Heparin Vial(*)) 5,000 units SUBCUT Q8HR [facility] Last Admin: 09/11/16 13:14 Dose: 5,000 units Hydroxyzine HCl (Atarax Tab*) 50 mg PO Q6H PRN PRN Reason: hives/itching Last Admin: 09/11/16 08:31 Dose: 50 mg Lorazepam (Ativan Inj*) 0.5 mg IV Q6HR PRN PRN Reason: ITCHING Last Admin: 09/11/16 06:11 Dose: 0.5 mg Melatonin (Melatonin (Nf)) 3 mg PO BEDTIME PRN; Protocol PRN Reason: Sleep Methylprednisolone Sodium Succinate (Solu-Medrol 40 Mg) 40 mg IV Q8H [facility] Last Admin: 09/11/16 08:31 Dose: 40 mg Montelukast Sodium (Singulair Tab*) 10 mg PO DAILY [facility] Last Admin: 09/11/16 08:31 Dose: 10 mg Multi-Ingredient Ointment (Hydrocerin*) 1 applic TOPICAL TID [facility] Last Admin: 09/11/16 10:42 Dose: 1 applic Ondansetron HCl (Zofran Inj*) 4 mg IV Q6H PRN PRN Reason: NAUSEA Vital Signs 09/10/16 09/10/16 09/10/16 15:30 16:50 18:48 Temperature 98.5 F Pulse Rate 68 Respiratory 16 16 14 Rate Blood Pressure 130/75 (mmHg) O2 Sat by Pulse 98 Oximetry 09/10/16 09/10/16 09/10/16 20:00 21:40 23:40 Temperature Pulse Rate Respiratory 18 18 18 Rate Blood Pressure (mmHg) O2 Sat by Pulse Oximetry 09/10/16 09/11/16 09/11/16 23:56 00:09 00:58 Temperature 98.2 F Pulse Rate 77 Respiratory 16 18 16 Rate Blood Pressure 138/77 (mmHg) O2 Sat by Pulse 99 Oximetry 09/11/16 09/11/16 09/11/16 03:45 03:52 05:25 Temperature 97.7 F Pulse Rate 66 Respiratory 16 18 16 Rate Blood Pressure 125/73 (mmHg) O2 Sat by Pulse 96 Oximetry 09/11/16 09/11/16 09/11/16 06:11 06:20 07:11 Temperature 98.0 F Pulse Rate 77 Respiratory 16 16 16 Rate Blood Pressure 136/59 (mmHg) O2 Sat by Pulse 100 Oximetry 09/11/16 09/11/16 09/11/16 08:00 09:20 13:14 Temperature 97.5 F Pulse Rate 80 Respiratory 16 16 18 Rate Blood Pressure 143/69 (mmHg) O2 Sat by Pulse 99 Oximetry Oxygen Devices in Use Now: None Appearance: Middle aged female sitting up in bed, NAD Eyes: No Scleral Icterus Ears/Nose/Mouth/Throat: Mucous Membranes Moist Respiratory: Symmetrical Chest Expansion and Respiratory Effort, Clear to Auscultation Cardiovascular: NL Sounds; No Murmurs; No JVD, RRR, No Edema Abdominal: NL Sounds; No Tenderness; No Distention Extremities: No Clubbing, Cyanosis Skin: - - diffuse hives and excoriations across her body Neurological: Alert and Oriented x 3 Result Diagrams: 09/10/16 06:50 09/10/16 06:50 Assess/Plan/Problems-Billing Ms Portillo is a 66 yo F who has a h/o HTN, HLD and asthma who presented to the ER with c/o hives and mouth/lip swelling that has progressed despite being on prednisone. - Patient Problems (1) Angioedema Current Visit: Yes Status: Acute Code(s): T78.3XXA - ANGIONEUROTIC EDEMA, INITIAL ENCOUNTER SNOMED Code(s): 47850566 Comment: Throat symptoms are better but she still has mild pain in the throat. Her hives are no better. Will continue aggressive antihistamine treatment in addition to solumedrol. Losartan was the proposed medication that led to the allergic rxn however she has not had this since 09/07/16. ? non- medication exposure. I would like to see some improvment in the patient's itching/hives prior to d/c home. (2) HTN (hypertension) Current Visit: Yes Status: Acute Code(s): I10 - ESSENTIAL (PRIMARY) HYPERTENSION SNOMED Code(s): 87824992 Comment: BP is under good control not on any antihypertensive medications. Continue to monitor. (3) HLD (hyperlipidemia) Current Visit: Yes Status: Acute Code(s): E78.5 - HYPERLIPIDEMIA, UNSPECIFIED SNOMED Code(s): 33021334 Comment: Lipitor on hold as this was her newest medication and initially the hives were attributed to this. (4) Asthma Current Visit: Yes Status: Acute Code(s): J45.909 - UNSPECIFIED ASTHMA, UNCOMPLICATED SNOMED Code(s): 692350168 Comment: No wheezing on exam. Continue prn albuterol. (5) DVT prophylaxis Current Visit: Yes Status: Acute Code(s): MOU9690 - SNOMED Code(s): 362672813 Comment: SQ heparin (6) Full code status Current Visit: Yes Status: Acute Code(s): Z78.9 - OTHER SPECIFIED HEALTH STATUS SNOMED Code(s): 260384317
[2016-09-12] MEDS: diPHENhydraMINE PO* 50 MG PO PRN ×2 (05:39→10:02)
[2016-09-12] MEDS: Heparin VIAL(*) 5000 UNITS/ML VIAL (FIVE THOUSAND) SUBCUT SCH ×2 (05:40→13:56)
[2016-09-12 07:29] VITALS: BP 141/75
[2016-09-12] MEDS: Famotidine TAB* 20 MG PO SCH ×3 (07:30→16:07)
[2016-09-12] MEDS: hydrOXYzine HCL TAB* 50 MG PO PRN (07:30)
[2016-09-12] MEDS: Montelukast Sodium TAB* 10 MG PO SCH (07:30)
[2016-09-12] MEDS: methylPREDNISolone SOD 40 MG* 1 ML VIAL IV SCH (07:31)
[2016-09-12] MEDS: Moisturizing CREAM* 113 GM JAR TOPICAL SCH ×2 (07:31→13:56)
--- NOTE | 2016-09-12 09:34 | PN ---
Subjective Date of Service: 09/12/16 Interval History: C/O itching. Her throat feels OK. Ate OK. No cough, SOB. Objective Active Medications: Albuterol (Ventolin 2.5 Mg/3 Ml Neb.Natalie*) 2.5 mg INH Q2H PRN PRN Reason: SOB/WHEEZING Calcium Carbonate (Tums*) 500 mg PO Q4H PRN PRN Reason: INDIGESTION Diphenhydramine HCl (Benadryl Po*) 50 mg PO Q6H [facility] Docusate Sodium (Colace Cap*) 200 mg PO BID PRN PRN Reason: CONSTIPATION Last Admin: 09/10/16 01:27 Dose: 200 mg Famotidine (Pepcid Tab*) 20 mg PO QID [facility] Last Admin: 09/12/16 07:30 Dose: 20 mg Heparin Sodium (Porcine) (Heparin Vial(*)) 5,000 units SUBCUT Q8HR [facility] Last Admin: 09/12/16 05:40 Dose: 5,000 units Hydroxyzine HCl (Atarax Tab*) 50 mg PO Q6H [facility] Lorazepam (Ativan Inj*) 0.5 mg IV Q6HR PRN PRN Reason: ITCHING Last Admin: 09/11/16 21:49 Dose: 0.5 mg Montelukast Sodium (Singulair Tab*) 10 mg PO DAILY [facility] Last Admin: 09/12/16 07:30 Dose: 10 mg Multi-Ingredient Ointment (Hydrocerin*) 1 applic TOPICAL TID [facility] Last Admin: 09/12/16 07:31 Dose: 1 applic Ondansetron HCl (Zofran Inj*) 4 mg IV Q6H PRN PRN Reason: NAUSEA Prednisone (Deltasone Tab*) 60 mg PO DAILY [facility] Vital Signs 09/11/16 09/11/16 09/11/16 13:14 14:56 15:45 Temperature 97.8 F Pulse Rate 85 Respiratory 18 16 Rate Blood Pressure 123/71 (mmHg) O2 Sat by Pulse 97 Oximetry 09/11/16 09/11/16 09/11/16 19:35 19:46 19:58 Temperature 98.3 F Pulse Rate 71 Respiratory 16 16 16 Rate Blood Pressure 136/72 (mmHg) O2 Sat by Pulse 96 Oximetry 05/20/17 05/20/17 05/20/17 21:35 21:49 22:49 Temperature Pulse Rate Respiratory 18 18 16 Rate Blood Pressure (mmHg) O2 Sat by Pulse Oximetry 09/12/16 09/12/16 09/12/16 00:02 03:19 05:39 Temperature 98.2 F 98.0 F Pulse Rate 70 70 Respiratory 17 17 16 Rate Blood Pressure 142/75 139/72 (mmHg) O2 Sat by Pulse 98 95 Oximetry 09/12/16 09/12/16 07:29 08:00 Temperature 97.4 F Pulse Rate 74 Respiratory 20 Rate Blood Pressure 141/75 (mmHg) O2 Sat by Pulse 96 Oximetry Oxygen Devices in Use Now: None Appearance: Alert, sitting up in bed, scratching herself. In fair spirits. Eyes: No Scleral Icterus Ears/Nose/Mouth/Throat: Clear Oropharnyx, Mucous Membranes Moist Neck: NL Appearance and Movements; NL JVP, No Thyroid Enlargement, Masses Respiratory: Symmetrical Chest Expansion and Respiratory Effort, Clear to Auscultation, Clear to Percussion Cardiovascular: NL Sounds; No Murmurs; No JVD, RRR, No Edema, - Extremities: No Edema, No Clubbing, Cyanosis, - Skin: - - urticarial rash on face, thorax, abdomen, all extremities. Neurological: Alert and Oriented x 3, NL Sensation Result Diagrams: 09/10/16 06:50 09/10/16 06:50 Assess/Plan/Problems-Billing Ms Portillo is a 66 yo F who has a h/o HTN, HLD and asthma who presented to the ER with c/o hives and mouth/lip swelling that has progressed despite being on prednisone. - Patient Problems (1) Angioedema Current Visit: Yes Status: Acute Code(s): T78.3XXA - ANGIONEUROTIC EDEMA, INITIAL ENCOUNTER SNOMED Code(s): 18262841 Comment: Resolved. Rx prednisone for a few days as outpt. (2) Urticaria Current Visit: Yes Status: Acute Code(s): L50.9 - URTICARIA, UNSPECIFIED SNOMED Code(s): 368247269 Comment: Rx schedule hydroxyzine alt with diphendyramine, q 3hr ATC. Outpt rx for hydroxyzine 50 mg 1 QID (3) Asthma Current Visit: Yes Status: Acute Code(s): J45.909 - UNSPECIFIED ASTHMA, UNCOMPLICATED SNOMED Code(s): 786332136 Comment: Continue prn albuterol, montelukast. I will ask daughter how long patient has been on montelukast, possibly can stop it also. She already received it 09/12. (4) HLD (hyperlipidemia) Current Visit: Yes Status: Acute Code(s): E78.5 - HYPERLIPIDEMIA, UNSPECIFIED SNOMED Code(s): 53560551 Comment: Lipitor on hold as this was her newest medication and initially the hives were attributed to this. Status and Disposition: Discharge now. Fup Dr. Adrien Lares and her manager garage.
[2016-09-12] MEDS: diPHENhydraMINE PO* 50 MG PO SCH ×2 (10:47→16:06)
[2016-09-12] MEDS ORDERED: hydrOXYzine HCL TAB* 50 MG PO SCH (12:30)
--- NOTE | 2016-09-12 13:52 | PN ---
Progress Note - Progress Note Note: Time spent on discharge 55 minutes.
--- NOTE | 2016-09-12 20:50 | DS ---
DISCHARGE SUMMARY: DATE OF ADMISSION: 09/10/16 DATE OF DISCHARGE: 09/12/16 HISTORY OF PRESENT ILLNESS: This 66-year-old woman was admitted with angioedema as well as urticaria. She had some swelling of the lip, throat tightness. She had originally presented to the urgent care on 09/06/16 with pruritic hives of 1- week duration. She has had hives in the past. She has already been followed by an black belt because of numerous allergies. In the ER , she was given IV diphenhydramine, IV methylprednisolone, and famotidine. She was discharged with prescriptions for prednisone and diphenhydramine. She came back the following day with worsening symptoms. It was noted that she was started on atorvastatin 2 months before that. She was told to stop taking this. She was given epinephrine. She was discharged with EpiPen and an increase in the prednisone dose from 40 mg a day to 60 mg a day and a prescription for hydroxyzine. She came back to the ER late on 09/09/16 with swollen lips, mild throat tightness and worsening urticaria. Her last dose of losartan was 09/07/16, she had been told to stop that as well. The rest of the history is detailed in the admission note. The patient was given famotidine, methylprednisolone, hydroxyzine and diphenhydramine. There was very little change. The family and patient noted that the rash seem to move around and disappear in one area and come in another area. On the day of discharge, it was really on all extremities, thorax, and face. The face was something new. She had no oral symptoms, no throat tightness, no cough, shortness of breath, no swelling of her tongue. Her asthma was under good control. She was able to eat normally. Other than the itching, she was in no distress. The patient had all her medications with her. I am them into 2 groups. She is basically stopping all her medications except for her 2 inhalers , budesonide for neb, prednisone, diphenhydramine, and hydroxyzine. DISCHARGE DIAGNOSES: 1. Angioedema. 2. Urticaria. 3. Asthma. 4. Hyperlipidemia. DISCHARGE MEDICATIONS: 1. Diphenhydramine 50 mg every 6 hours as needed for itching. 2. Hydroxyzine 50 mg every 6 hours as needed for itching. 3. Prednisone, to taper from 50 mg a day to 10 mg a day in 5 days, I note the patient have three 20 mg tablets and over 10 10 mg tablets and I told her how to make up the appropriate doses. 4. Budesonide and formoterol 160/4.5 2 puffs b.i.d. 5. Albuterol sulfate 2 puffs 4 times a day p.r.n. 6. Famotidine 40 mg daily. 7. EpiPen as needed. 8. Diphenhydramine 50 mg up to 4 times a day as needed for itching. I note both the hydroxyzine and diphenhydramine are written as up to 50 mg, take up to 4 times a day as needed for itching. The patient will seek an early appointment with her black belt and also follow up with Dr. Constance Lares. CC: Dr. Constance Lares* [id number]/[facility] #: [id number] MTDD
[2016-09-13] MEDS ORDERED: predniSONE TAB* 20 MG PO SCH (09:00)
== END 2016-09-12 16:30 | disposition home or self-care (01) | DRG 916 ==
LOC: ED 22:13 → MED 09-09 00:11 → OBSVTOIN 09-10 12:49
PROVIDERS: ADMIT Hospitalist; ATTEND Internal Medicine
DX: T78.3XXA Angioneurotic edema, initial encounter (principal); E78.5 Hyperlipidemia, unspecified; T46.5X5A Adverse effect of other antihypertensive drugs, initial encounter; J45.909 Unspecified asthma, uncomplicated; M81.0 Age-related osteoporosis without current pathological fracture; M19.90 Unspecified osteoarthritis, unspecified site; Z79.891 Long term (current) use of opiate analgesic; Z79.52 Long term (current) use of systemic steroids; Z79.899 Other long term (current) drug therapy; Z88.2 Allergy status to sulfonamides; Z88.8 Allergy status to other drugs, medicaments and biological substances; Z88.6 Allergy status to analgesic agent; Z91.013 Allergy to seafood; Z82.49 Family history of ischemic heart disease and other diseases of the circulatory system; Y92.9 Unspecified place or not applicable; X58.XXXA Exposure to other specified factors, initial encounter
CPT/HCPCS: 36415; 80048; 80053; 82550; 83605; 83690; 84443; 85025; 85027; 85610; 85652; 85730; 86140; 93005; 96374; 96375; 99283; A9270-GY; G0378; J0171; J1200; J1644; J2060; J2920; J2930; J7512

== ENCOUNTER 2016-09-13 16:11 | Observation (INO) | payer MEDICARE, MEDICAID ==
[2016-09-13] MEDS ORDERED: NS 0.9% 1000 ML* 1,000 ML IV ONE (18:22)
[2016-09-13] MEDS ORDERED: diPHENhydraMINE IV* 50 MG/ML 1 ml VIAL (BENADRYL) IV ONE (18:23)
[2016-09-13] MEDS ORDERED: Dexamethasone IV* 4 MG/ML 5 ML VIAL (20 MG) IVPB ONE (18:23)
--- NOTE | 2016-09-13 18:49 | RAD ---
INDICATION: Fever/vomiting/media/rash COMPARISON: Most recent comparison chest x-ray is dated May 13, 2016 TECHNIQUE: Single AP portable view of the chest was obtained. FINDINGS: Image quality is compromised due to the relative inferiority of a portable chest x-ray. The heart and mediastinum exhibit normal size and contour. The lungs are grossly clear. There is no evidence of a large pleural effusion. Visualized bones are normal for the patient's age. IMPRESSION: No radiographic evidence for acute cardiopulmonary abnormality on this portable chest x-ray.
--- NOTE | 2016-09-13 20:31 | ED ---
Queta Porras Auryana, scribed for Sven Whittaker MD on 09/13/16 at 1830 . Skin Complaint - HPI Summary HPI Summary: 66 year old female presents with worsening rash (starting 2 weeks ago) and was referred here by her allergists - Dr. Cueva. - was concerned about infection and sepsis due to slight fever (99.9). Daughter reports that she has been chills , vomiting with epigastric pain and trouble swallowing, constipation, head pain - sharp posterior, and diffuse itching (scalp is the worst). Daughter and patient report no improvement of rash with abx treatment - ciprofloxacin. PMHx is significant for allergies (multiple). - History of Current Complaint Chief Complaint: EDRashSkinAbscess Time Seen by Provider: 09/13/16 18:06 Stated Complaint: FEVER/VOMITING/WEAKNESS/RASH Hx Obtained From: Patient Hx Last Menstrual Period: N/A Onset/Duration: Started Weeks Ago, Still Present Timing: Constant Onset Severity: Mild Current Severity: Moderate Pain Intensity: 5 Pain Scale Used: 0-10 Numeric Skin Location: Diffuse Character: Pruritus, Hives, Redness, Painful Alleviating Symptom(s): Nothing Associated Signs & Symptoms: Vomiting, Difficulty Breathing, Fever - per poultry husbandman 99.9, Chills, Rash, Abdominal Pain - epigastric - Additional Pertinent History Primary Care Physician: ANDREA - Allergy/Home Medications Allergies/Adverse Reactions: Allergies Allergy/AdvReac Type Severity Reaction Status Date / Time Aspirin Allergy Severe SEVERE Verified 08/31/13 12:17 STOMACH UPSET Shellfish Allergy Allergy Intermediate Rash Verified 08/31/13 12:17 Acetaminophen [From [place]] Allergy Unknown Unknown Verified 08/31/13 12:17 Reaction Details Hydrocodone [From [place]] Allergy Unknown Unknown Verified 08/31/13 12:17 Reaction Details Sulfamethoxazole Allergy Unknown Unknown Verified 08/31/13 12:17 w/Trimethoprim Reaction [From Bactrim] Details SALMON Allergy Unknown Unknown Uncoded 08/31/13 12:17 Reaction Details PMH/Surg Hx/FS Hx/Imm Hx Endocrine/Hematology History: Denies: Hx Diabetes, Hx Thyroid Disease Cardiovascular History: Reports: Hx Hypertension Denies: Hx Pacemaker/ICD Respiratory History: Reports: Hx Asthma, Other Respiratory Problems/Disorders Denies: Hx Chronic Obstructive Pulmonary Disease (COPD) GI History: Denies: Hx Ulcer History: Reports: Hx Kidney Stones Musculoskeletal History: Reports: Other Musculoskeletal History - pain all-over , gives out when walking,sudden X2 weeks\ Sensory History: Reports: Hx Cataracts - BILAT, Hx Contacts or Glasses - GLASSES , Hx Glaucoma Denies: Hx Hearing Aid Opthamlomology History: Reports: Hx Cataracts - BILAT, Hx Contacts or Glasses - GLASSES, Hx Glaucoma Psychiatric History: Reports: Hx Anxiety, Hx Depression, Hx Panic Disorder - ANXIETY - Cancer History Hx Chemotherapy: No Hx Radiation Therapy: No - Surgical History Surgery Procedure, Year, and Place: CATARACTS Hx Anesthesia Reactions: No Infectious Disease History: Denies: Hx Clostridium Difficile, Hx Hepatitis, Hx Human Immunodeficiency Virus (HIV), Hx of Known/Suspected MRSA, Hx Shingles, Hx Tuberculosis, Hx Known/ Suspected VRE, Hx Known/Suspected VRSA, History Other Infectious Disease, Traveled Outside the in Last 30 Days - Family History Known Family History: Positive: Other - No Fhx of breast CA. Family History: No FHx of breast CA. - Social History Occupation: Unemployed, Retired Lives: With Family Alcohol Use: None Hx Substance Use: No Substance Use Type: Reports: None Hx Tobacco Use: No Smoking Status (MU): Never Smoked Tobacco Amount Used/How Often: DEC FROM LUNG CA, PT EXPOSED TO 2ND HAND SMOKE Have You Smoked in the Last Year: No Review of Systems Positive: Fever, Chills Eyes: Negative Positive: Other - trouble swallowing Cardiovascular: Negative Respiratory: Negative Positive: Abdominal Pain - epigastric, Vomiting, Other - constipation Genitourinary: Negative Musculoskeletal: Negative Positive: Rash, Other - diffuse itching Positive: Headache Psychological: Normal All Other Systems Reviewed And Are Negative: Yes Physical Exam - Summary Physical Exam Summary: VITAL SIGNS: Reviewed. GENERAL: Patient is a well-developed and nourished elderly female who seems in distress secondary to itching. Patient is not in any acute respiratory distress. HEAD AND FACE: No signs of trauma. No ecchymosis, hematomas or skull depressions. No sinus tenderness. EYES: PERRLA, EOMI x 2, No injected conjunctiva, no nystagmus. EARS: Hearing grossly intact. Ear canals and tympanic membranes are within normal limits. MOUTH: Oropharynx within normal limits. No lip or tongue swelling. NECK: Supple, trachea is midline, no adenopathy, no JVD, no carotid bruit, no c- spine tenderness, neck with full ROM. CHEST: Symmetric, no tenderness at palpation LUNGS: Clear to auscultation bilaterally. No wheezing or crackles. No airway compromise. No wheezing and no SOB on exam. CVS: Regular rate and rhythm, S1 and S2 present, no murmurs or gallops appreciated. ABDOMEN: Soft, non-tender. No signs of distention. No rebound no guarding, and no masses palpated. Bowel sounds are normal. EXTREMITIES: FROM in all major joints, no edema, no cyanosis or clubbing. NEURO: Alert and oriented x 3. No acute neurological deficits. Speech is normal and follows commands. SKIN: Dry and warm diffuse and generalized hives with surrounding erythema all over body - lesions are blanching and do not show any type of vesicular lesions No Koebner's phenomenon No Nikolsky's sign No Auspitz's sign (+) blanching Triage Information Reviewed: Yes Vital Signs On Initial Exam: Initial Vitals Temp Pulse Resp BP Pulse Ox 98.5 F 92 20 109/64 97 09/13/16 16:19 09/13/16 16:19 09/13/16 16:19 09/13/16 16:19 09/13/16 16:19 Vital Signs Reviewed: Yes Diagnostics - Vital Signs Vital Signs Temp Pulse Resp BP Pulse Ox 09/13/16 17:29 98.8 F 82 20 118/60 98 09/13/16 16:21 98.5 F 93 20 109/64 97 09/13/16 16:19 98.5 F 92 20 109/64 97 - Laboratory Lab Statement: Any lab studies that have been ordered have been reviewed, and results considered in the medical decision making process. - Radiology CXR Xray Interpretation: No Acute Changes Radiology Interpretation Completed By: Radiologist Course/Dx - Course Assessment/Plan: Patient has had multiple visits to the ED for what appeared to have allergic reactions, angioedema and questionable anaphylactic reaction. She has been given multiple doses of benadryl, pepcid, decadron and pepcid. She was admitted to the hospital for the above complaints and discharge home with F/ U of and poultry husbandman Dr. Cueva. He saw the patient today and he does not think she has an allergic reaction rather she send the patient back to the ED for infection / sepsis work up. Patient is hemodynamically stable and she is afebrile. I did order blood work CXR . Patient is awaiting for test results. She will be signed out to Dr. Castelan for further assessment. She reports severe itching therefore she was given Benadryl, Pepcid and Decadron. - Differential Diagnoses - Skin Complaint Differential Diagnoses: Drug Rash, Drug Intoxication, Systemic Illness, Urticaria, Viral Exanthem - Diagnoses Provider Diagnoses: Rash Discharge - Discharge Plan Condition: Stable Disposition: OTHER Discharge Disposition Comment: disposition pending labwork - signout to Dr. Castelan at 19:00 Referrals: Constance Lares MD [Primary Care Provider] - The documentation as recorded by the Queta samuels Auryana accurately reflects the service I personally performed and the decisions made by me, Sven Whittaker MD.
[2016-09-13 20:59] LABS: Hematocrit 40 % (35-47); Hemoglobin 13.2 g/dl (12.0-16.0); Mean Corpuscular HGB Conc 34 g/dl (31-36); Mean Corpuscular Hemoglobin 29 pg (27-31); Mean Corpuscular Volume 87 fL (80-97); Mean Platelet Volume 8 um3 (7.4-10.4); Red Blood Count 4.55 10^6/ul (4.0-5.4); Red Cell Distribution Width 14 % (10.5-15); White Blood Count 16.1 10^3/ul (3.5-10.8)
[2016-09-13 21:01] LABS: Add Diff/Slide Review? Slide Review Added; Comments Flag Yes
[2016-09-13 21:13] LABS: Albumin 3.5 g/dL (3.2-5.2); BUN/Creatinine Ratio 24.7 (8-20); C Reactive Protein 249.64 mg/L (< 5.00); Calcium 9.4 mg/dL (8.6-10.3); EGFR African American 102.9 (>60); Globulin 3.8 g/dL (2-4); Potassium 3.9 mmol/L (3.5-5.0); Total Bilirubin 0.8 mg/dL (0.2-1.0); Total Protein 7.3 g/dL (6.4-8.9)
[2016-09-13 21:14] LABS: Troponin I 0.01 ng/mL (<0.04)
[2016-09-13] MEDS ORDERED: Albuterol HFA INHALER* 8 gm MDI INH PRN (21:34)
[2016-09-13 21:42] LABS: Eosinophils % 1 % (0-6); Immature Granulocytes 15 % (0-9); Metamyelocytes % 2 % (0-2); Neutrophil % 74 % (38-83)
[2016-09-13 21:43] LABS: RBC Morphology Normal (Normal)
[2016-09-13 22:02] LABS: Erythrocyte Sed Rate 77 mm/Hr (0-40)
[2016-09-13] MEDS ORDERED: Acetaminophen TAB* 325 MG PO PRN (23:11)
[2016-09-13] MEDS ORDERED: Ondansetron INJ* 2 MG/ML VIAL IV PRN (23:11)
[2016-09-13] MEDS: hydrOXYzine HCL TAB* 25 MG PO PRN (23:28)
[2016-09-13 23:38] LABS: Urine Bilirubin Negative (Negative); Urine Glucose Negative (Negative); Urine Nitrite Negative (Negative)
[2016-09-14] MEDS: Heparin VIAL(*) 5000 UNITS/ML VIAL (FIVE THOUSAND) SUBCUT SCH ×4 (00:08→21:04)
[2016-09-14 04:54] LABS: BUN/Creatinine Ratio 24.2 (8-20); Calcium 8.6 mg/dL (8.6-10.3); EGFR African American 115.6 (>60); EGFR Non-African American 89.9 (>60); Potassium 3.9 mmol/L (3.5-5.0)
[2016-09-14 05:04] LABS: Hematocrit 36 % (35-47); Hemoglobin 11.9 g/dl (12.0-16.0); Mean Corpuscular HGB Conc 33 g/dl (31-36); Mean Corpuscular Hemoglobin 29 pg (27-31); Mean Corpuscular Volume 87 fL (80-97); Mean Platelet Volume 8 um3 (7.4-10.4); Red Blood Count 4.15 10^6/ul (4.0-5.4); Red Cell Distribution Width 14 % (10.5-15); White Blood Count 16.1 10^3/ul (3.5-10.8)
--- NOTE | 2016-09-14 05:48 | HP ---
HISTORY AND PHYSICAL: DATE OF ADMISSION: 09/13/16 PRIMARY CARE PROVIDER: Dr. Constance Lares ATTENDING PHYSICIAN WHILE IN THE HOSPITAL: Dr. Roya Johnson *(report dictated by Berrtam Peña NP). CHIEF COMPLAINT: Rash. HISTORY OF PRESENT ILLNESS: Mrs. Portillo is a 66-year-old female patient. She has a history of hypertension, hyperlipidemia, osteoarthritis, osteoporosis, and a history of asthma. She comes into the ER today. This is her fourth visit in the last month for complaints of a rash. She was just discharged on , yesterday, sent home on a steroid taper. She was placed on a steroid taper and discharged. She followed up with her life educator today and there was a concern because the rash had looked worse. There was a concern because she had vomited today. There was more itching. The life educator felt that she needed to be reevaluated as the rash was not improving. There was a concern for possible superimposed infection. She came back to the hospital. She says that the rash started about 2 to 3 weeks ago. Initially the thought was that the rash was related to the addition of new medication of Lipitor and possibly Cozaar. She was treated several times with IV steroids, Benadryl, and Pepcid, with improvement. However, on 09/09/16, is when she was admitted here last time , she sounded like she had, what appeared to be, swelling of the lips, swelling of the face. There was concern for an allergic reaction. She was given epinephrine and then admitted for a 2-day observation stay and treated with steroids and improved. She says initially the rash started 3 weeks ago in the stomach and then it kind of diffusely moved and migrated through the arms, into the extremities, into the back, and it has been itching. She says she has noticed that she has been scabbing herself because she has been itching so much. She has also been complaining of having chills, but no fevers. She denied any blistering of the mouth and denies having any blistering of the skin. She says the skin had just been risen. To her knowledge there has not been any change in soaps or detergents. The daughter did one time, and there has been no, again, changes in medications, with the exception of addition of Pepcid, Benadryl, and p.o. steroids. She was evaluated here in the ER today. It was noted that her CRP had gone up and her white count was up. It appeared that there may be underlying infection and there was a concern because the rash was not improving. So, we were asked to evaluate for admission. She denies having any chest pain. She denies having any abdominal pain. There was one episode of nausea and vomiting. PAST MEDICAL HISTORY: Significant for: 1. Asthma. 2. Hypertension. 3. Hyperlipidemia. 4. Osteoporosis. 5. Osteoarthritis. PAST SURGICAL HISTORY: Denied. HOME MEDICATIONS: Include, according to the last list: 1. Cipro 500 mg p.o. b.i.d. 2. EpiPen IM once as needed. 3. Symbicort 2 puffs inhaled b.i.d. 4. Albuterol 2 puffs inhaled four times a day as needed. 5. Benadryl 50 mg every 6 hours as needed. 6. Pepcid 40 mg daily. 7. Atarax 50 mg every 6 hours as needed. 8. Prednisone 50 mg daily. ALLERGIES: Allergies to medications include ASPIRIN, SHELLFISH, NORCO, SULFA, SALMON, COZAAR, and LIPITOR. FAMILY HISTORY: Reviewed and noncontributory. SOCIAL HISTORY: She does not smoke. She does not drink. Surrogate decision maker is her daughter. REVIEW OF SYSTEMS: There is no documented fever. She denies having any significant weight change. There was no double vision. There was no ear discharge. She denies having any rhinorrhea. There was no sore throat. There is no thyroid enlargement. She denied having any chest pain. There was no orthopnea. There was no nocturnal dyspnea, no abdominal pain. There was one episode of nausea and vomiting. No dysuria, no frequency, no seizure, no loss of consciousness. There is pruritus. There is no ulceration of skin. Review of 14 systems completed, all others are negative. PHYSICAL EXAMINATION GENERAL: At this time, Mrs. Portillo is a 66-year-old female patient. She is sitting in the ER stretcher. She does not appear to be in any acute distress. VITAL SIGNS: Blood pressure 118/60, pulse 82, respirations 20, O2 sat 98%, temperature 98.8. HEENT: Head is atraumatic and normocephalic. Eyes: EOMs are intact. Sclerae are anicteric, not pale. Throat: Oral mucosa appears to be dry. No oropharyngeal erythema. NECK: Supple. HEART: Sounds S1, S2. Regular rate and rhythm. No murmurs, rubs, or gallops. LUNGS: Clear to auscultation. No wheezes, rales, or rhonchi. ABDOMEN: Soft, flat, nontender. Bowel sounds present. EXTREMITIES: Pulses are 2+ throughout. She is able to move all 4 extremities with 5/5 strength. NEUROLOGIC: She is awake, alert, and oriented x3. Tongue midline. Case Resource Manager are equal. No gross focal deficits. SKIN: Grossly intact, but she has multiple areas of scabbing noted to the hands and to the legs. She has areas of erythema and a diffuse urticaria, worse on the torso, and involves all 4 extremities, and there are areas again of excoriation and she also has areas on her back as well, it is blanchable, and it does not appear to have involvement of the mucous membranes on exam. LABORATORY DATA: Her labs today revealed a WBC of 6.1, which is up from her previous WBC, RBC of 4.55, hemoglobin of 13.2, hematocrit of 40, platelet count of 288. INR was 1.03. Sodium is 132, potassium 3.9, chloride of 29, bicarb 23 , BUN 18, creatinine 0.73, glucose 115, calcium 9.4, total bilirubin 0.8, AST 14 , ALT 15, and alk phos 50. Troponin 0.01. Her CRP was 249, which is up from 25. Albumin of 3.5. She did have a chest x-ray obtained today, which revealed no radiographic evidence for acute cardiopulmonary abnormality. Old medical records reviewed. ASSESSMENT AND PLAN: Mrs. Portillo is a 66-year-old female patient, coming into the ER today with complaints of urticaria and also pruritus. She will be admitted under observation status for: 1. Urticaria, etiology is unclear. She recently did have angioedema thought to be secondary to losartan. However, swelling in her mouth and throat is gone , but the urticaria persists and now she has a white count and an elevated CRP. I question if there is an underlying superinfection, particularly the areas where she has excoriated and has scabs, which certainly could be area for infection. My plan is to go ahead and panculture her. I will put her on Keflex. I am going to have Dr. Karimi or somebody from the surgical team to do a punch biopsy of one of these lesion. We will send off an ANCA panel. We will send off rheumatoid HILDA. Her ESR is pending. In addition, we will put her on steroids, famotidine, and hydroxyzine, and we will continue to follow her and she may need Dermatology followup. 2. Hypertension. Continue to monitor. We will start another agent if needed, but her blood pressure is stable. 3. Hyperlipidemia. Follow that with primary. 4. History of asthma. Continue her meds as prescribed and continue p.r.n. albuterol. 5. DVT prophylaxis. She is high risk, I will place her on heparin subcu. 7. Code status. Full code. 8. Fluids, electrolytes, and nutrition: She can have a regular diet. TIME SPENT: Time spent on this admission was 60 minutes, greater than half the time was spent [id number] with the patient, obtaining my history and physical , and the other half of the time was spent going over the plan of care with patient and implementing plan of care. I discussed the plan of care with my attending, Dr. Johnson, she is in agreement. BERTRAM PEÑA NP CC: Dr. Constance Lares* [id number]/[facility] #: [id number] MTDZofia
[2016-09-14] MEDS: predniSONE TAB* 20 MG PO SCH (07:33)
[2016-09-14] MEDS: hydrOXYzine HCL TAB* 25 MG PO PRN (07:33)
[2016-09-14] MEDS: Mometasone/Formoter 200/5 MDI INH SCH ×2 (08:33→20:27)
[2016-09-14] MEDS ORDERED: Lidocaine 1% INJ* 10 MG/ML 30 ML SDV ONE (11:00)
--- NOTE | 2016-09-14 14:47 | RAD ---
Indication: RIGHT axillary swelling. Comparison: June 11, [address] Technique: Ultrasound of the RIGHT axilla corresponding with the region of swelling and tenderness. Doppler utilized. REPORT AND IMPRESSION: Normal morphology axillary level lymph nodes are visualized measuring 0.4 cm short axis or smaller. Negative for lymphadenopathy. No solid lesion or loculated fluid collection evident.
--- NOTE | 2016-09-14 17:28 | PN ---
Hospitalist Progress Note Patient's daughter has declined discharge and requested infectious disease consult. Patient will remain observation status. Please see discharge summary for details. Plan of care has been reviewed with Dr Constance Lares (PCP), Dr Cueva (equipment maintenance superintendent) and the office of Dr Joyce (cooking chef). She has pending appointments with Dr Lares and Dr Joyce for tomorrow afternoon which she will plan to keep.
[2016-09-14] MEDS ORDERED: Bisacodyl SUPP* 10 MG SUPP PR PRN (18:58)
--- NOTE | 2016-09-15 00:26 | CONS ---
CC: Dr. Constance Lares; [facility]; Allergy and Asthma, Dr. Cueva SURGICAL CONSULTATION REPORT AND PROCEDURE NOTE: DATE OF CONSULT AND PROCEDURE: 09/14/16 HISTORY OF PRESENT ILLNESS: I was contacted by the hospitalist service to perform a punch biopsy on Ms. Portillo, a 66-year-old female with a 2-week history of rash, rash described as pruritic. She fay d been hospitalized, started on steroids, and discharged only to get re-admitted for continued what is described as urticaria. The patient denies any fevers. She denied any similar symptoms in the past. She states that all ov er and none more itchy than others, they all are similarly bothersome. Additionally, the patient fay d episode of vomiting on date of admission and presented as possible concern of allergic reaction. PAST MEDICAL HISTORY: Reviewed. MEDICATIONS: Reviewed. REVIEW OF SYSTEMS: No shortness of breath. No chest pain. Vomiting as described. Pruritic rashes on the skin as described. No fevers, no chills. No bleeding or clotting disorders. PHYSICAL EXAM: Afebrile, vital signs are stable. The patient is alert and oriented x3, in no appar ent distress. Head, Ears, Eyes, Nose and Throat: Normocephalic, atraumatic. Sclerae anicteric. Mu cous membranes are moist. Skin throughout reveals submillimeter raised lesions with scabbing. No s urrounding erythema along these lesions. They are diffuse, of various ages, but the size is very co nsistent. The patient has a swelling in the right axilla, but this does not reveal any discrete lym phadenopathy. No streaking or erythema in the arms or legs. Palpable pulses throughout. IMPRESSION AND PLAN: Skin lesions of unclear etiology. Recommendation as per the hospitalist johnnie fernandez, biopsy. I discussed the case with the pathologist, who recommended punch biopsies with placemen t of specimen in both formalin and in Norbert's solution for a direct immunofluorescence. I described to the patient the procedure. We chose the areas on the back as the biopsy sites. The area was prepped sterilely with Betadine. Injection of lidocaine was then performed and two 4-mm pu [facility] were taken at the periphery of the single skin lesion at the right upper back, one port ion sent in formalin, the other fresh for planned Norbert's solution placement. Bleeding was control led with direct pressure and gauze was applied followed by tape. The patient tolerated the procedur e well. I discussed with the family that I will follow up the results. They understand the plan as it stands right now. [id number]/[facility] #: [id number]
[2016-09-15] MEDS: hydrOXYzine HCL TAB* 25 MG PO PRN ×2 (04:14→08:46)
[2016-09-15] MEDS: Heparin VIAL(*) 5000 UNITS/ML VIAL (FIVE THOUSAND) SUBCUT SCH (05:28)
--- NOTE | 2016-09-15 06:09 | DS ---
DISCHARGE SUMMARY: DATE OF ADMISSION: 09/13/16 DATE OF DISCHARGE: 09/14/16 PRIMARY CARE PROVIDER: Dr. Constance Lares. DEEP WELL CONTRACTOR: Dr. Cueva. MOLD WORKER: Dr. Joyce. DISCHARGING PROVIDER: DEBRA Smalls SUPERVISING PHYSICIAN: Dr. Neeta Riggs* (dictated by DEBRA Smalls). PRIMARY DISCHARGE DIAGNOSES: 1. Urticaria of uncertain etiology. 2. Leukocytosis - likely a leukemoid reaction to recent steroid use. 3. Elevated CRP and sed rate. SECONDARY DISCHARGE DIAGNOSES: 1. Hypertension. 2. Hyperlipidemia. 3. Asthma. 4. Osteoarthritis. DISCHARGE MEDICATIONS: 1. Albuterol 2 puffs inhaled 4 times daily as needed for shortness of breath. 2. Symbicort 160/4.5 two puffs inhaled twice daily. 3. Keflex 500 mg p.o. t.i.d. x7 days. 4. EpiPen. 5. Pepcid 40 mg p.o. daily. 6. Diphenhydramine 50 mg p.o. q.6 hours as needed for itching. 7. Prednisone per prior taper schedule. Medication changes: Keflex x7 days. HOSPITAL IMAGING: Chest x-ray shows no acute abnormalities. Soft tissue ultrasound of the right axilla shows no lymphadenopathy, solid lesion, or loculated fluid collection. HOSPITAL COURSE: This is a 66-year-old female with a history of asthma, hypertension, and hyperlipidemia who was recently admitted for angioedema and urticaria. She was treated with steroids, Pepcid, and p.r.n. Benadryl and discharged to home on Tuesday. She subsequently followed up with the career orientation teacher as recommended on Tuesday morning and was seen by Dr. Cueva, who recommended that she return to the emergency department for further evaluation. Dr. Cueva felt that she appeared sedated in his office and had some difficulty getting up on to the exam table without assistance and he was concerned that she may be septic. When the patient reached the emergency department, she had elevated white blood cell count to 16,000 with a sed rate of 77 and a CRP of 250. Remainder of her labs were largely unremarkable. She was afebrile and normotensive and appeared to be mentating appropriately. The patient was subsequently admitted to a period of observation, treated with IV famotidine, p.r.n. Benadryl, and received a dose of Decadron in the emergency department. The patient had persistent urticaria with some complaints of pruritus associated with it, but felt that her rash had overall improved and had no complaints of airway difficulties, lip or tongue swelling. During the patient's prior hospitalization, she was on both a statin and losartan. Both of these medications were discontinued at that time. The patient denies any recent new medications apart from the steroids and antihistamines that she was discharged from the hospital on. Since the workup was completed during her hospital stay as to the etiology of her urticaria, punch biopsy was completed on her upper back of call center support representative lesion and pathology is pending at the time of discharge. An HILDA as well as rheumatoid factor and ANCA panel as well as HIV screening are all pending at the time of discharge. Due to the patient's leukocytosis and elevated inflammatory markers, the patient was empirically treated with cefazolin. She does have multiple areas of excoriation but no natali cellulitis or abscess. The leukocytosis could certainly be explained by her recent steroid use and the elevated CRP and sed rate could certainly be explained by the generalized inflammatory process that is quite evident by her diffuse urticaria. Despite this, she will be discharged with 7 days of Keflex. Extensive coordination of care was completed during the patient's hospital stay with her career orientation teacher, Dr. Cueva, put a call in to Dermatology office with Dr. Christensen and spoke with her nurse as she was not in the office and also spoke with her primary care provider and initiated a referral to Infectious Disease per family request. DISPOSITION AND FOLLOWUP PLAN: The patient is being discharged to home. Recommend 7 days of Keflex as outlined above as well as resuming her steroids on her prior tapering dose as well as use of p.r.n. Benadryl. This plan was discussed with both her career orientation teacher and primary care provider which were in agreement. She has an appointment scheduled with Dermatology for tomorrow afternoon as well as with her primary care provider and will plan to see her career orientation teacher in the next couple of weeks as well as a referral to Infectious Disease if still appropriate. Again as mentioned above, pending labs include HILDA, ANCA panel, rheumatoid factor, and HIV screening, as well as pathology from a punch biopsy. DEBRA SMALLS CC: Dr. Constance Lares; Dr. Cueva; Dr. Christensen; Dr. Swartz* [id number]/[facility] #: [id number] [facility]ITAL[facility]
[2016-09-15] MEDS: Mometasone/Formoter 200/5 MDI INH SCH (08:14)
[2016-09-15] MEDS: predniSONE TAB* 20 MG PO SCH (08:46)
[2016-09-15 09:03] LABS: BUN/Creatinine Ratio 23.2 (8-20); C Reactive Protein 163.63 mg/L (< 5.00); Calcium 8.7 mg/dL (8.6-10.3); EGFR African American 109.8 (>60); EGFR Non-African American 85.4 (>60); Potassium 3.4 mmol/L (3.5-5.0)
[2016-09-15 09:04] LABS: Hematocrit 40 % (35-47); Hemoglobin 13.1 g/dl (12.0-16.0); Mean Corpuscular HGB Conc 33 g/dl (31-36); Mean Corpuscular Hemoglobin 29 pg (27-31); Mean Corpuscular Volume 87 fL (80-97); Red Blood Count 4.54 10^6/ul (4.0-5.4); Red Cell Distribution Width 14 % (10.5-15); White Blood Count 18.1 10^3/ul (3.5-10.8)
[2016-09-15 09:09] LABS: Add Diff/Slide Review? Slide Review Added; Comments Flag Yes
[2016-09-15] MEDS ORDERED: Hydrocortisone 1% CREAM* 30 GM TUBE TOPICAL PRN (10:38)
--- NOTE | 2016-09-15 10:40 | DCNOTE ---
Subjective Date of Service: 09/15/16 Interval History: Patient continues to itch. Urticaria covering entire body including face. No airway compromise. She was evaluated by Dr Swartz this am Objective Active Medications: Albuterol (Ventolin Hfa Inhaler*) 2 puff INH QID PRN PRN Reason: asthma Bisacodyl (Dulcolax Supp*) 10 mg PA DAILY PRN PRN Reason: CONSTIPATION Heparin Sodium (Porcine) (Heparin Vial(*)) 5,000 units SUBCUT Q8HR [facility] Last Admin: 09/15/16 05:28 Dose: Not Given Hydroxyzine HCl (Atarax Tab*) 25 mg PO Q4H PRN PRN Reason: ITCHING Last Admin: 09/15/16 08:46 Dose: 25 mg Famotidine 20 mg/ Sodium (Chloride) 102 mls @ 408 mls/hr IVPB BID [facility] Last Admin: 09/15/16 08:46 Dose: 408 mls/hr Mometasone Furoate/Formoterol Fumar (Dulera 200/5 Mdi*) 2 puff INH BID [facility] PRN Reason: Protocol Last Admin: 09/15/16 08:14 Dose: 2 puff Ondansetron HCl (Zofran Inj*) 4 mg IV Q6H PRN PRN Reason: NAUSEA Last Admin: 09/14/16 22:28 Dose: 4 mg Prednisone (Deltasone Tab*) 40 mg PO DAILY [facility] Last Admin: 09/15/16 08:46 Dose: 40 mg Vital Signs: Temp Pulse Resp BP Pulse Ox 98.5 F 72 12 138/60 96 09/15/16 03:50 09/15/16 08:16 09/15/16 08:16 09/15/16 03:50 09/15/16 08:16 Appearance: Somewhat uncomfortable appears due to itching Respiratory: Symmetrical Chest Expansion and Respiratory Effort, Clear to Auscultation Cardiovascular: NL Sounds; No Murmurs; No JVD, RRR Abdominal: NL Sounds; No Tenderness; No Distention Extremities: No Edema Skin: - - diffuse urticaria covering entire body and face with areas of excoriation Neurological: Alert and Oriented x 3 Result Diagrams: 09/15/16 08:19 09/15/16 08:19 Microbiology and Other Data: Microbiology 09/13/16 22:43 Aerobic Blood Culture - Preliminary Blood Venous No Growth Day 1 Anaerobic Blood Culture - Preliminary No Growth Day 1 09/14/16 01:30 Group A Streptococcus Rapid Screen - Final Throat Specimen received for Rapid Strep A Molecular testing Assess/Plan/Problems-Billing Assessment: This is a 66 yo female with asthma admitted with persistent urticaria. - Patient Problems (1) Urticaria Comment: Uncertain etiology Incomplete response to steroid therapy Pending outpatient dermatology evaluation later today Evaluated by ID this am who does not believe this is infectious, but has ordered antibody testing for indolent parasitic infection and Hep B Followed by Dr Cueva for allergy care, case discussed yesterday over the phone Discussed with PCP, Dr Constance Lares, yesterday Some relief of itching with Atarax Pending autoimmune workup and punch biopsy pathology (2) Asthma Comment: No acute exacerbation Cont home inhaled medications (3) HLD (hyperlipidemia) Comment: Atorvastatin stopped at previous admission (4) HTN (hypertension) Comment: Normotensive without antihypertensives Losartan stopped at last hospital admission (5) DVT prophylaxis Comment: SQ heparin (6) Full code status Status and Disposition: Discharge today. Dermatology and PCP appointments scheduled for this afternoon. Recommend ID follow up in ~ 1 week and hide cooking operator follow up in ~ 2 weeks. Cont steroids on prior taper schedule, Keflex x 5d and prn Atarax Please see full discharge summary for additional details.
[2016-09-15 11:09] VITALS: BP 120/60
[2016-09-15 11:42] LABS: Rheumatoid Factor <15 IU/mL (<15)
--- NOTE | 2016-09-15 14:45 | CONS ---
CONSULTATION REPORT: DATE OF CONSULT: 09/15/2016. REQUESTING PROVIDER: DEBRA Miranda CONSULTING SERVICE: Infectious Disease. REASON FOR CONSULTATION: Question infectious etiology for rash. IMPRESSION: 1. A number of medical encounters for diffuse pruritic rash involving the face , trunk, arms, and legs, looks like urticaria. She has had angioedema as well. She has had variable response to corticosteroids and antihistamines. The workup at this point has been negative. Infectious consideration though unlikely can include chronic hepatitis B infection or chronic strongyloides infection. She has a family history of tuberculosis and exposure. However, she has no signs or symptoms of active tuberculosis infection. 2. SHELLFISH allergy and recent shellfish consumption. 3. Asthma. 4. Seasonal allergies. RECOMMENDATIONS: Stop antibiotics. We will include a hepatitis B surface antigen and antibody and strongyloides antibody and HIV antibody was sent as well as a vasculitis workup. A skin punch biopsy was obtained and pending as well. HISTORY OF PRESENT ILLNESS: This is a 66-year-old [place] woman admitted with urticaria. She notes that this started about 2 weeks ago. Shortly before onset she did consume shrimp. She had her hair dyed. She had a statin started a few weeks before then and was also on an ARB. She was seen in the [facility] and then in the ER twice and now has been admitted twice with various regimens aimed at symptom alleviation. She is also followed up with lard renderer. They redirected her to the hospital for a concern for sepsis. Her blood cultures here are negative. Urinalysis was negative. A strep throat swab was negative. She was on Ancef. She had no fever here. Her white count was elevated in the setting of corticosteroid use. Her CRP was 250 on admission, was 160 today. She has ongoing diffuse itching which is in the arms, legs, chest, and back. She has no facial swelling or difficulty breathing or wheeze. She has been on some IV famotidine, oral prednisone, as needed hydroxyzine. Her symptoms were most resolved yesterday and then they recurred this morning. She has had no fevers, chills or sweats while she has been here. Her appetite has been good as it has been over the last few weeks and she has had no weight loss recently. She has no headache, sinus symptoms, sore throat, cough, trouble breathing, abdominal pain, diarrhea. She has a baseline constipation. She has no joint pains, stiffness or swelling. She has no urinary frequency or dysuria. No flank pain or tenderness and no swelling in the neck, arm pits or groin. No vaginal discharge. PAST MEDICAL HISTORY: 1. Environmental and food allergy. 2. Asthma. 3. Hypertension. 4. Hyperlipidemia. 5. Osteoporosis. 6. Osteoarthritis. MEDICATIONS: 1. Albuterol. 2. Cefazolin 2 g IV every 8 hours. 3. Famotidine. 4. Hydroxyzine. 5. Prednisone 40 mg daily. ALLERGIES: ASPIRIN, SHELLFISH, NORCO, SULFA, THIAMINE, COZAAR, LIPITOR. FAMILY HISTORY: Her father of tuberculosis when she was a child. She has never had positive tuberculosis skin testing that she knows off. Her mom of cancer. SOCIAL HISTORY: She lives in [place] by herself. She is originally from [facility]. She watches her daughter's children who have not been ill. REVIEW OF SYSTEMS: All negative except as noted above. PHYSICAL EXAM: Vital Signs: Temperature is 37, heart rate 90, respiratory rate , blood pressure 130/60, O2 sat 96% on room air. General: She is awake in no distress. Neurologic: She is oriented x3. Follows all commands. Moves all extremities. HEENT: There is no conjunctival hemorrhage. Oropharynx without lesions. Neck: Neck is supple without nuchal rigidity. Lymph Nodes. There is no cervical, supraclavicular, inguinal, axillary or epitrochlear lymphadenopathy. Heart is regular rate and rhythm without murmurs, rubs or gallops. Lungs are clear to auscultation bilaterally. Abdomen: Soft, nontender, nondistended without hepatosplenomegaly. Skin: There is diffuse excoriation and scabbing. They are scattered on her face, trunk, arms and legs , blanching erythematous plaques without scale. Musculoskeletal: There is no spine tenderness to palpation or joint synovitis. DIAGNOSTIC STUDIES/LAB DATA: Creatinine is 0.7, CRP 160. White blood cell count 18, hemoglobin 13, platelets 256, eosinophils are 100, neutrophils 15,000. Please see impressions and recommendations as outlined above, which I have discussed with DEBRA Miranda Thank you for asking me to see Ms. Portillo in consultation. [id number]/[facility] #: [id number] [facility]
== END 2016-09-15 13:10 | disposition home or self-care (01) ==
LOC: ED 16:11 → MEDTELE 21:30
PROVIDERS: ADMIT Hospitalist; ATTEND Internal Medicine
PROC: 0HB6XZX Excision of Back Skin, External Approach, Diagnostic (ICD-10-PCS; principal; 2016-09-13)
DX: L50.9 Urticaria, unspecified (principal); D72.829 Elevated white blood cell count, unspecified; R70.0 Elevated erythrocyte sedimentation rate; R94.4 Abnormal results of kidney function studies; I10 Essential (primary) hypertension; E78.5 Hyperlipidemia, unspecified; J45.909 Unspecified asthma, uncomplicated; M19.90 Unspecified osteoarthritis, unspecified site; M79.89 Other specified soft tissue disorders; Z79.899 Other long term (current) drug therapy; Z88.2 Allergy status to sulfonamides; Z88.6 Allergy status to analgesic agent; Z88.8 Allergy status to other drugs, medicaments and biological substances
CPT/HCPCS: 36415; 71010; 80048; 80053; 81003; 83516; 83605; 84484; 85025; 85384; 85610; 85652; 85730; 86038; 86140; 86431; 86682; 86706; 87040; 87340; 87389; 87651; 88305; 88346; 88350; 94640; 94760; 96365; 96366; 96375; 99283; A9270-GY; G0378; G0475; J0690; J1200; J1644; J2001; J2405; J7512

== ENCOUNTER 2018-09-11 09:50 | Inpatient (IN) | payer MEDICARE, MEDICAID ==
[~2018-09-11 09:50] MED LIST: Acetaminophen TAB* 325 MG PO ONE; Buffered Lidocaine 1% SYRIN* 1 ML/SYRINGE INTRADERM ONE; Dexamethasone IV* 4 MG/ML 1 ML (4 MG) IV SLOW PU ONE; Famotidine TAB* 20 MG PO ONE; Gabapentin CAP(*) 300 MG PO ONE; Lactated Ringers 1000 ML Bag* 1,000 ML IV SCH; Tranexamic Acid 1,000 MG in NS 0.9% 50 ML* (outpatient use) IV SCH; celeCOXIB CAP* 100 MG PO ONE
--- OUTSIDE RECORDS SUMMARY | 2018-09-11 09:55 | XMS REPORT | Continuity of Care Document ---
:1950 External Reference #:[id number] Author Name SARA Khan Address [address] [place] [address] Care Team Providers Name Role Phone Constance Lares MD Primary Care Physician Unavailable Payers Date Identification Numbers Payment Provider Subscriber Policy Number: [id number] Medicare Marily Pham PayID: [id number] [address] [facility] [address] Effective: 2015 Policy Number: [id number] Medicare Marily Pham Expires: 2018 PayID: [id number] [address] [place] [address] Effective: 2015 Policy Number: [employer] Medicaid Marily Pham [id number] Expires: 2015 PayID: [id number] [address] [address] [place] [address] Effective: 2011 Policy Number: [place]ential Marily Pham [id number] Expires: 2014 PayID: [id number] [address] [address] [place] [address] Effective: 2015 Policy Number: [id number] Medicaid Marily Pham Group Name: 1 1 [address] PayID: [id number] [place] [address] Advance Directives Description No Information Available Problems Active Problems Provider Date Asthma without status asthmaticus Husam Bradley M.D. Onset: 09/20/2012 Localized, primary osteoarthritis Samir Morales M.D. Onset: 02/05/2015 Family History Date Family Member(s) Observation Comments General Cancer Father due to Cancer () Mother due to Cancer () Social History Type Date Description Comments Sex Unknown Marital Status Lives With Family Occupation Disabled ETOH Use Denies alcohol use Tobacco Use Start: Unknown Patient has never smoked Recreational Drug Use Denies Drug Use Smoking Status Reviewed: 08/16/18 Patient has never smoked Exercise Type/Frequency Does not exercise Allergies, Adverse Reactions, Alerts Active Allergies Reaction Severity Comments Date Bactrim hives 09/20/2012 Aspirin hives 09/20/2012 Shellfish-derived Products hives 09/20/2012 [place] hives 09/20/2012 Medications Active Medications SIG Qnty Indications Ordering Date Provider Symbicort 2 puffs po bid 30units Unknown 160-4.5mcg/Act Aerosol Fluticasone 1 spray each 16gm Unknown Propionate nostril daily as 50mcg/Act needed Suspension Sertraline HCL 1/2 tab by mouth 90tabs Unknown 100mg every day Tablets Ibuprofen 3 in am, 3 in pm 100tabs Unknown 200mg Tablets prn Sarna topical as needed Unknown 0.5-0.5% Lotion for pruritis Amlodipine Besylate 1 by mouth every Unknown 5mg day Tablets Fexofenadine HCL once daily Unknown 180mg Tablets Fiber-Lax 1 tab by mouth Unknown 625mg Tablets once a day Proctozone-HC use after bowel Unknown 2.5% movement and Cream every night at bedtime Singulair 1 by mouth every Unknown 10mg Tablets day History Medications Neurontin 1 by mouth 30caps M17.12 Samir Morales, 03/23/2017 - 300mg Capsules every night at M.D. Unknown bedtime Diclofenac Sodium take one tablet 90tabs Samir Morales, 07/18/2013 - 50mg by mouth twice M.D. 07/18/[address] a day as needed Ultram sig 1 to 2 tabs 90tabs Samir Morales, 07/18/2013 - 50mg Tablets by mouth every M.D. 04/15/2017 night at bedtime as needed Diclofenac Sodium Take 1 Tablet 90tabs Samir Morales, 07/18/2013 - 50mg By Mouth Two M.D. 04/19/[address] Times Daily as Needed Nitro-Dur 1/2 patch to 30units Samir Morales, 12/21/2012 - 0.1mg/HR Patches left elbow M.D. 07/18/2013 24HR daily, off after 12 hours Ultram sig 1 to 2 tabs 60tabs Samir Morales, 12/21/2012 - 50mg Tablets po qhs prn M.D. 07/18/2013 Ultram sig 1-2 po qhs 60tabs Samir Morales, 09/06/2012 - 50mg Tablets prn, take after M.D. 09/20/2012 taking 2 ES Tylenol Misoprostol take one tablet 60tabs Samir Prattino, 04/24/2012 - 200mcg Tablets by mouth twice M.D. Unknown A day prn Diclofenac Sodium DR Take One Tablet 90tabs Samir Prattino, 04/24/2012 - 50mg By Mouth Twice M.D. 07/18/[address] A Day as Needed Arthrotec 50 1 po bid 12tabs Samir Prattino, 03/29/2012 - 63-752lt-vxc M.D. 07/18/2013 Tablets Ondansetron HCL one by mouth 60tabs Unknown - 4mg Tablets every 8 hours 07/18/2013 as needed for nausea Transderm-Scop apply one patch 4units Unknown - 1.5mg behind ear 09/17/2014 Patches 72HR every 72 hours Lorazepam 1 po bid prn 30tabs Unknown - 0.5mg Tablets 07/18/2013 Omeprazole 1 po qd 90caps Unknown - 20mg Capsules DR 04/15/2017 Colace 1 po qd prn 60caps Unknown - 100mg Capsules 07/18/2013 Losartan Potassium 1 po qd 90tabs Unknown - 50mg Unknown Tablets Ventolin HFA 2 puffs po qid 1units Unknown - 108(90Base) prn 04/19/2017 mcg/Act Aerosol Alendronate Sodium 1 po weekly 12tabs Unknown - 70mg Unknown Tablets Levocetirizine 1 po qd 90tabs Unknown - Dihydrochloride 07/18/2013 5mg Tablets Hydroxyzine HCL take 1 tab by Unknown - 50mg mouth at Unknown Tablets bedtime for anxiety as needed Medications Administered in Office Medication SIG Qnty Indications Ordering Provider Date Dexamethasone Sodium Samir Morales M.D. 08/02/2018 Phosphate, 1 MG Injection Depomedrol 40MG Vishal Marte PA-C 04/12/2018 Injection Depomedrol 40MG Samir Morales M.D. 11/30/2017 Injection Depomedrol 40MG Samir Morales M.D. 07/27/2017 Injection Depomedrol 40MG Samir Morales M.D. 03/23/2017 Injection Depomedrol 40MG Samir Morales M.D. 11/17/2016 Injection Depomedrol 40MG Samir Morales M.D. 07/14/2016 Injection Depomedrol 40MG Samir Mroales M.D. 03/17/2016 Injection Depomedrol 40MG Samir Morales M.D. 10/02/2015 Injection Celestone 3 mg and 3mg Samir Morales M.D. 05/29/2015 Injection Depomedrol 80MG Samir Morales M.D. 02/05/2015 Injection Depomedrol 80MG Samir Morales M.D. 09/18/2014 Injection Depomedrol 80MG ABHIJEET Grimes 06/05/2014 Injection Depomedrol 80MG Samir Morales M.D. 12/19/2013 Injection Depomedrol 80MG Samir Morales M.D. 12/19/2013 Injection Depomedrol 80MG Nolberto Che, 07/18/2013 Injection SARA Depomedrol 80MG Samir Morales M.D. 03/21/2013 Injection Immunizations Description No Information Available Vital Signs Date Vital Result Comment 08/16/2018 8:16am Height 63 inches 5'3" Weight 133.00 lb Heart Rate 67 /min BP Systolic 134 mmHg BP Diastolic 76 mmHg Body Temperature 97.8 F Pain Level 2 BMI (Body Mass Index) 23.6 kg/m2 08/02/2018 8:14am Height 63 inches 5'3" Weight 134.00 lb Heart Rate 65 /min Body Temperature 96.4 F O2 % BldC Oximetry 97 % BMI (Body Mass Index) 23.7 kg/m2 06/15/2018 2:20pm Heart Rate 72 /min BP Systolic 130 mmHg BP Diastolic 82 mmHg Respiratory Rate 16 /min Body Temperature 98.0 F 06/01/2018 2:20pm Height 63 inches 5'3" Weight 123.00 lb Heart Rate 60 /min BP Systolic Sitting 140 mmHg BP Diastolic Sitting 78 mmHg Respiratory Rate 18 /min Body Temperature 97.1 F BMI (Body Mass Index) 21.8 kg/m2 04/12/2018 8:05am Height 63 inches 5'3" Weight 133.00 lb BP Systolic 140 mmHg BP Diastolic 76 mmHg Pain Level 5 BMI (Body Mass Index) 23.6 kg/m2 11/30/2017 9:35am Height 63 inches 5'3" Weight 133.00 lb BP Systolic 134 mmHg BP Diastolic 78 mmHg Respiratory Rate 20 /min Pain Level 6 BMI (Body Mass Index) 23.6 kg/m2 07/27/2017 9:34am Height 63 inches 5'3" Weight 133.00 lb BP Systolic 120 mmHg BP Diastolic 66 mmHg Respiratory Rate 18 /min Pain Level 6 BMI (Body Mass Index) 23.6 kg/m2 03/23/2017 9:39am Height 63 inches 5'3" Weight 133.00 lb BP Systolic 124 mmHg BP Diastolic 88 mmHg Respiratory Rate 18 /min Pain Level 6 BMI (Body Mass Index) 23.6 kg/m2 11/17/2016 11:24am Height 63 inches 5'3" Weight 133.00 lb Heart Rate 77 /min Respiratory Rate 14 /min Pain Level 7 BMI (Body Mass Index) 23.6 kg/m2 07/14/2016 12:02pm Height 63 inches 5'3" Weight 133.00 lb Heart Rate 76 /min BP Systolic 122 mmHg BP Diastolic 77 mmHg Respiratory Rate 16 /min Body Temperature 98.7 F Pain Level 5 BMI (Body Mass Index) 23.6 kg/m2 03/17/2016 2:55pm Height 63 inches 5'3" Weight 133.00 lb Pain Level 5 BMI (Body Mass Index) 23.6 kg/m2 10/02/2015 3:27pm Height 63 inches 5'3" Weight 132.00 lb Heart Rate 64 /min BP Systolic Sitting 128 mmHg BP Diastolic Sitting 72 mmHg Respiratory Rate 18 /min Pain Level 7 BMI (Body Mass Index) 23.4 kg/m2 05/29/2015 3:37pm Height 63 inches 5'3" Weight 130.00 lb Pain Level 5 BMI (Body Mass Index) 23.0 kg/m2 02/05/2015 3:56pm Height 63 inches 5'3" Weight 135.00 lb Pain Level 5 BMI (Body Mass Index) 23.9 kg/m2 09/18/2014 2:42pm Height 63 inches 5'3" Weight 135.00 lb Pain Level 7 mainly left leg BMI (Body Mass Index) 23.9 kg/m2 06/05/2014 3:28pm Height 63 inches 5'3" Weight 135.00 lb Heart Rate 66 /min BMI (Body Mass Index) 23.9 kg/m2 06/05/2014 3:28pm Height 63 inches 5'3" 04/19/2014 1:10pm Height 63 inches 5'3" Weight 135.00 lb Heart Rate 64 /min BP Systolic Sitting 140 mmHg BP Diastolic Sitting 80 mmHg Pain Level 8 R shoulder& arm BMI (Body Mass Index) 23.9 kg/m2 03/20/2014 10:14am Height 63 inches 5'3" Heart Rate 72 /min BP Systolic 135 mmHg BP Diastolic 88 mmHg 12/19/2013 8:35am Height 63 inches 5'3" Weight 140.00 lb Heart Rate 64 /min BMI (Body Mass Index) 24.8 kg/m2 07/18/2013 8:56am Height 63 inches 5'3" Weight 140.00 lb Heart Rate 60 /min BMI (Body Mass Index) 24.8 kg/m2 09/20/2012 1:39pm Height 63 inches 5'3" Weight 135.00 lb Heart Rate 64 /min BP Systolic 110 mmHg BP Diastolic 70 mmHg Body Temperature 98.6 F BMI (Body Mass Index) 23.9 kg/m2 Results Test Date Facility Test Result H/L Range Note CBC Auto Diff 08/29/2018 [facility] White Blood 5.8 10^3/uL N 3.5-10.[address] [place] [address] [phone] Red Blood Count 4.53 10^6/uL N 3.70-4.87 Hemoglobin 13.7 g/dL N 12.0-16.0 Hematocrit 41 % N 35-47 Mean Corpuscular Volume 90 fL N 80-97 Mean Corpuscular Hemoglobin 30 pg N 27-31 Mean Corpuscular HGB Conc 34 g/dL N 31-36 Red Cell Distribution Width 14 % N 10.5-15 Platelet Count 228 10^3/uL N 150-450 Mean Platelet Volume 8.7 fL N 7.4-10.4 Abs Neutrophils 3.5 10^3/uL N 1.5-7.7 Abs Lymphocytes 1.6 10^3/uL N 1.0-4.8 Abs Monocytes 0.4 10^3/uL N 0-0.8 Abs Eosinophils 0.2 10^3/uL N 0-0.6 Abs Basophils 0.1 10^3/uL N 0-0.2 Abs Nucleated RBC 0.0 10^3/uL Granulocyte % 59.8 % Lymphocyte % 28.6 % Monocyte % 6.4 % Eosinophil % 4.2 % Basophil % 1.0 % Nucleated Red Blood Cells % 0.0 Type & Screen 08/29/2018 [facility] Patient Blood Type B Positive [address] [place] [address] [phone] Antibody Screen NEGATIVE Comp Metabolic Panel 08/29/2018 [facility] Sodium 140 mmol/L N 135-145 [address] [place] [address] [phone] Potassium 3.4 mmol/L Low 3.5-5.0 Chloride 105 mmol/L N 101-111 Co2 Carbon Dioxide 28 mmol/L N 22-32 Anion Gap 7 mmol/L N 2-11 Glucose 92 mg/dL N 70-100 Blood Urea Nitrogen 16 mg/dL N 6-24 Creatinine 0.58 mg/dL N 0.51-0.95 BUN/Creatinine Ratio 27.6 High 8-20 Calcium 9.5 mg/dL N 8.6-10.3 Total Protein 7.4 g/dL N 6.4-8.9 Albumin 4.3 g/dL N 3.2-5.2 Globulin 3.1 g/dL N 2-4 Albumin/Globulin Ratio 1.4 N 1-3 Total Bilirubin 0.40 mg/dL N 0.2-1.0 Alkaline Phosphatase 57 U/L N 34-104 Alt 14 U/L N 7-52 Ast 18 U/L N 13-39 Egfr Non- 103.7 >60 Egfr 125.5 >60 1 Urinalysis Profile 08/29/2018 [facility] Urine Color Yellow [address] [place] [address] [phone] Urine Appearance Cloudy Urine Specific [place] 1.015 N 1.010-1.030 Urine pH 5.0 N 5-9 Urine Urobilinogen Negative Negative Urine Ketones Negative Negative Urine Protein 1+(30 mg/dL) Abnormal Negative Urine Leukocytes Trace Abnormal Negative Urine Blood 2+ Abnormal Negative Urine Nitrite Negative Negative Urine Bilirubin Negative Negative Urine Glucose Negative Negative Urine White Blood Cell 1+(6-10/hpf) Abnormal Absent Urine Red Blood Cell 3+(>10/hpf) Abnormal Absent Urine Bacteria Absent Absent Inr/Protime 08/29/2018 [facility] Inr 0.91 N 0.82-1.[address] [place] [address] [phone] Laboratory test 08/29/2018 [facility] Partial 26.9 N 26.0- 36.[address] [place] [address] PTT [phone] Urine Culture And 08/29/2018 [facility] Urine Culture SEE RESULT [address] [place], [place] [id number] [phone] Laboratory test 09/14/2016 [facility] Surgical SEE RESULT [address] [place] [address] [phone] CBC Auto Diff 09/20/2012 [facility] White Blood 6.1 10^3/uL 4.8-10.[address] [place] [address] [phone] Red Blood Count 4.78 10^6/uL 4.0-5.4 Hemoglobin 12.5 g/dL 12.0-16.0 Hematocrit 39 % 35-47 Mean Corpuscular Volume 81 fL 80-97 Mean Corpuscular Hemoglobin 26 pg Low 27-31 Mean Corpuscular HGB Conc 32 g/dL 31-36 Red Cell Distribution Width 16 % High 10.5-15 Platelet Count 271 10^3/uL 150-450 Mean Platelet Volume 9 um3 7.4-10.4 Abs Neutrophils 3.6 10^3/uL 1.5-7.7 Abs Lymphocytes 1.8 10^3/uL 1.0-4.8 Abs Monocytes 0.6 10^3/uL 0-0.8 Abs Eosinophils 0.1 10^3/uL 0-0.6 Abs Basophils 0 10^3/uL 0-0.2 Abs Nucleated RBC 0 10^3/uL Granulocyte % 58.3 % 38-83 Lymphocyte % 30.0 % 25-47 Monocyte % 9.5 % High 1-9 Eosinophil % 1.5 % 0-6 Basophil % 0.7 % 0-2 Nucleated Red Blood Cells % 0.1 Laboratory test 09/20/2012 [facility] C Reactive < 0.5 mg/dL Less than finding [address] Protein 0.5 [place] [address] [phone] Malaria Prep 09/20/2012 [facility] RBC Parasite No Parasites No Parasite [address] Smear See <[place] [address] NOTE> [phone] Blood Smear Pathologist Review Kurt Nicholas <SEE NOTE> 6 1 Because ethnic data is not always readily available, this report includes an eGFR for both -Americans and non- Americans. The National Kidney Disease Education Program (NKDEP) does not endorse the use of the MDRD equation for patients that are not between the ages of 18 and 70, are , have extremes of body size, muscle mass, or nutritional status, or are non- or non-. According to the National Kidney Foundation, irrespective of diagnosis, the stage of the disease is based on the level of kidney function: Stage Description GFR(mL/min/1.73 m(2)) 1 Kidney damage with normal or decreased GFR 90 2 Kidney damage with mild decrease in GFR 60-89 3 Moderate decrease in GFR 30-59 4 Severe decrease in GFR 15-29 5 Kidney failure <15 (or dialysis) 2 Standard intensity warfarin therapeutic range: 2.0-3.0 High intensity warfarin therapeutic range: 2.5-3.5 3 SEE RESULT BELOW Name: VEROHTAYHTVITALY : [address]: Samir Morales MD Acct: [id number] Unit: [id number] AGE: 68 Location: [facility] Re08/29/18 SEX: F Status: REG REF SPEC: [id number] EMILY: 08/29/18-[address]: Samir Morales MD REQ: [id number] RECD: 08/29/18 STATUS: COMP OTHR DR: Constance Lares MD _ SOURCE: URINE SPDESC: ORDERED: Urine Culture QUERIES: Urine Source: Clean Catch Procedure Result Reported Site Urine Culture Final 08/30/18- 1219 ML No Growth (<1,000 CFU/mL) * - Main Lab . END OF REPORT DEPARTMENT OF PATHOLOGY, [address] [place] [address] Kurt Pitt M.D. Director [facility] # [id number] 4 SEE RESULT BELOW Name: MARILY PHAM : [address]: Neeta Riggs MD Acct: [id number] Unit: [id number] AGE: 66 Location: [place] [address] Re09/13/16 Dis: 09/15/16 SEX: F Status: DIS Mo SPEC: [id number] EMILY: 09/14/16-1120 [facility] [place] DR: Loco Karimi MD REQ: [id number] RECD: 09/14/167511 STATUS: SOUT _ ORDERED: LEVEL 4, DIF-FIRST AB, DIF-ADDL AB/4 FINAL DIAGNOSIS Skin, back, biopsy: -- Very mild superficial perivascular dermatitis; see comment. COMMENT: Direct immunofluorescence microscopy is negative. The findings are non-specific for etiology of this dermatitis. There is no evidence of cutaneous mastocytosis or an allergic response that could cause urticaria. The histologic findings are most compatible with idiopathic urticaria. Clinical-pathologic correlation is recommended. CLINICAL HISTORY Pruritic urticaria for 2 weeks PRE-OPERATIVE DIAGNOSIS Urticaria for 2 weeks GROSS DESCRIPTION The specimen is received in two parts: Part A received in formalin labeled, Punch Biopsy Back Skin Lesion, and consists of a 0.5 x 0.4 x 0.2 cm montalvo-pink irregular skin fragment which is bisected and entirely submitted in cassette A. Part B received in Norbert's labeled, Punch Biopsy Back Skin Lesion, and consists of a 0.3 x 0.2 x 0.2 cm erythematous montalvo-white bosselated skin fragment which is entirely submitted in cassette B for direct immunofluorescence microscopy. CONTINUED ON NEXT PAGE * ML=Testing performed at Main Lab DEPARTMENT OF PATHOLOGY, [address] [place] [address] Kurt Pitt M.D. Director CLIA # [id number] RUN DATE: 09/15/16 [facility] LAB LIVE PAGE 2 Patient: VEROHTAYHTVITALY [id number] (Continued) MICROSCOPIC DESCRIPTION (Continued) MICROSCOPIC DESCRIPTION Histologic sections show a punch biopsy of skin excised to include mid reticular dermis. Basket weave orthokeratosis is present overlying epidermis with no evidence of significant spongiosis or interface reaction. The epidermis is focally eroded. In the superficial to mid dermis a very mild patchy, perivascular chronic inflammatory infiltrate composed of lymphocytes is present. Eosinophils are not prominent in the dermal inflammatory infiltrate. Mast cells are not prominent in the dermal inflammatory infiltrate. There is no evidence of papillary dermal edema. Direct immunofluorescence microscopy, with appropriately reacting controls, was performed on sections cut from the specimen received in Norbert's fixative with the following results: IgM negative IgG negative IgA negative Fibrinogen negative C3 negative Signed (signature on file) Kari Bazan MD 1427 END OF REPORT * ML=Testing performed at Main Lab DEPARTMENT OF PATHOLOGY, [address] [place] [address] Kurt Pitt M.D. Director [facility] # [id number] 5 No Parasites Seen 6 Kurt Pitt Procedures Date Code Description Status 08/02/2018 Inject/Drain Joint/Bursa Major W/O US Completed 06/15/2018 70255 Hemorrhoidectomy, Internal, By Rubber Band Ligation(S) Completed 06/01/2018 34351 Hemorrhoidectomy, Internal, By Rubber Band Ligation(S) Completed 04/12/2018 Inject/Drain Joint/Bursa Major W/O US Completed 11/30/2017 Inject/Drain Joint/Bursa Major W/O US Completed 07/27/2017 Inject/Drain Joint/Bursa Major W/O US Completed 03/23/2017 Inject/Drain Joint/Bursa Major W/O US Completed 11/17/2016 Inject/Drain Joint/Bursa Major W/O US Completed 09/14/2016 62865 Each Additional Biopsy Completed 09/14/2016 14792 Biopsy Skin Lesion Single Completed 09/09/2016 76011 EKG, Interpretation Only Completed 07/14/2016 Inject/Drain Joint/Bursa Major W/O US Completed 03/17/2016 Inject/Drain Joint/Bursa Major W/O US Completed 10/02/2015 Inject/Drain Joint/Bursa Major W/O US Completed 05/29/2015 Inject/Drain Joint/Bursa Major W/O US Completed 02/05/2015 Inject/Drain Joint/Bursa Major W/O US Completed 09/18/2014 Inject/Drain Joint/Bursa Major W/O US Completed 06/05/2014 Inject/Drain Joint/Bursa Major W/O US Completed 12/19/2013 87547 Rad Exam; Spine Cerv Comp Completed 12/19/2013 54016 Rad Exam; Spine, Cervical Completed 12/19/2013 Inject/Drain Joint/Bursa Major W/O US Completed 07/18/2013 28016 Xray Knee 3 Views Completed 07/18/2013 28654 Rad Exam; Knee, Ap&L Completed 07/18/2013 Inject/Drain Joint/Bursa Major W/O US Completed 03/21/2013 Inject/Drain Joint/Bursa Major W/O US Completed 03/29/2012 50683 Xray Knee 3 Views Completed 03/29/2012 53745 Xray Knee 3 Views Completed 03/29/2012 32426 Rad Exam; Knee, Ap&L Completed 03/29/2012 88926 Rad Exam; Knee, Ap&L Completed Encounters Type Date Location Provider Dx Diagnosis Office Visit 08/16/2018 [facility] [place].12 Unilateral primary 8:00a [facility] Perez osteoarthritis, left knee Office Visit 08/02/2018 [facility] [place].11 Unilateral primary 8:15a [facility] osteoarthritis, right knee Office Visit 06/01/2018 Surgical Loco Karimi, K64.2 Third degree 2:15p [facility], FACS hemorrhoids Office Visit 04/12/2018 [facility] [place].12 Unilateral primary 8:00a [facility] osteoarthritis, left knee Office Visit 11/30/2017 [facility] [place].12 Unilateral primary 9:30a [facility] osteoarthritis, left knee Office Visit 03/23/2017 Orthopedic Samir Morales, M54.16 Radiculopathy, 9:45a [facility] Pedersen. lumbar region M17.12 Unilateral primary osteoarthritis, left knee M54.16 Radiculopathy, lumbar region Office Visit 09/15/2016 9:43a [facility] R21 Rash and other Infectious Chris Bradley nonspecific skin Diseases eruption T78.3xxA Angioneurotic edema, initial encounter Z83.1 Family history of other infectious and parasitic diseases Office Visit 09/15/2016 [facility] L50.8 Other 3:38p Assoc,DEBRA [place] urticaria Hospitalists J45.909 Unspecified asthma, uncomplicated I10 Essential (primary) hypertension Office Visit 09/13/2016 3:37p [facility] L50.8 Other urticaria Assoc,neha Peña N.P. Hospitalists J45.909 Unspecified asthma, uncomplicated I10 Essential (primary) hypertension Office Visit 09/12/2016 [facility] T78.3xxD Angioneurotic 2:26p Assoc,neha Mccrary M.D. edema, subsequent Hospitalists encounter I10 Essential (primary) hypertension E78.5 Hyperlipidemia, unspecified J45.909 Unspecified asthma, uncomplicated [facility] T[facility] Angioneurotic 2:25p Assoc,neha Johnson D.O. edema, subsequent Hospitalists encounter I10 Essential (primary) hypertension E78.5 Hyperlipidemia, unspecified J45.909 Unspecified asthma, uncomplicated Office Visit 09/10/2016 [facility] Roya T78.3xxD Angioneurotic 2:25p Assoc,neha Johnson D.O. edema, subsequent Hospitalists encounter I10 Essential (primary) hypertension E78.5 Hyperlipidemia, unspecified J45.909 Unspecified asthma, uncomplicated Office 09/09/2016 [facility] [place] T78.3xxD Angioneurotic Visit 2:24p Assoc,neha MORALES M.D. edema, subsequent Hospitalists encounter I10 Essential (primary) hypertension E78.5 Hyperlipidemia, unspecified J45.909 Unspecified asthma, uncomplicated Office Visit 03/17/2016 Orthopedic Samir M17.12 Unilateral primary 2:45p [facility] Chris Morales osteoarthritis, left C.M.A. knee Office Visit 09/18/2014 Lyle Dawson 715.96 Osteoarthrosis 2:45p [facility] Chris Morales Unspec Genlzd Or C.M.A. Localized Lower Leg Office Visit 06/05/2014 Orthopedic Barbara 715.96 Osteoarthrosis 3:30p Services Of ABHIJEET Lopez Unspec Genlzd Or C.M.A. Localized Lower Leg Office Visit 04/19/2014 Neurosurgery Bhargav Veronica 723.0 Stenosis Spinal 1:00p [facility] Of Royal Soriano M.D. Cervical Region Office Visit 03/20/2014 Orthopedic Barbara 719.41 Pain Joint Shoulder 10:30a Services Of ABHIJEET Lopez Region C.M.A. 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 RPA-C Localized Lower Leg Office Visit 05/16/2013 Orthopedic Nolberto Fierro 715.96 Osteoarthrosis 9:30a Services Of Yane, Unspec Genlzd Or C.M.A. RPA-C Localized Lower Leg Office Visit 03/21/2013 Orthopedic Samir Morales 715.96 Osteoarthrosis 2:30p Services Of Chris Unspec Genlzd Or C.M.A. Localized Lower Leg Office Visit 01/18/2013 Orthopedic Samir Morales 715.96 Osteoarthrosis 4:30p Services Of Chris Unspec Genlzd Or C.M.A. Localized Lower Leg Office Visit 12/21/2012 Orthopedic Samir Morales 715.96 Osteoarthrosis 4:30p Services Of M.D. Unspec Genlzd Or C.M.A. Localized Lower Leg Office Visit 09/20/2012 [facility] 780.60 Fever, Unspecified 1:20p For Infectious Chris Bradley Diseases Office Visit 09/06/2012 Orthopedic Samir Morales, 715.96 Osteoarthrosis 8:30a Services Of Chris Mendoza Or C.M.AMelina Localized Lower Leg 719.46 Pain Joint Lower Leg Office Visit 06/08/2012 Orthopedic Samir 715.96 Osteoarthrosis 8:30a Services Of Chris Morales Unspec Genlzd Or C.M.A. Localized Lower Leg Office Visit 03/29/2012 Orthopedic Samir 715.96 Osteoarthrosis 8:00a Services [facility] Chris Morales Unspec Genlzd Or C.M.A. Localized Lower Leg Plan of Treatment Future Appointment(s):09/11/2018 12:30 pm - DE[facility]09/11/2018 12:30 pm - Samir Morales M.D. at [facility]08/16/2018 - Samir Morales M.D.M17.12 Unilateral primary osteoarthritis, left kneeFollow up:4 weeks after surgery
--- OUTSIDE RECORDS SUMMARY | 2018-09-11 09:55 | XMS REPORT | Continuity of Care Document ---
:1950 External Reference #:[id number] Author Name Constance Lares M.D. Address [address] [facility] [facility] [place] [address] Care Team Providers Name Role Phone Constance Lares M.D. 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 Primary Care Physician Unavailable Payers Date Identification Numbers Payment Provider Subscriber Effective: 2014 Policy Number: [id number] Medicare [place] Marily Pham PayID: [id number] [address] [place] [address] Effective: 2014 Policy Number: [id number] Medicaid [place] Marily Pham PayID: [id number] [address] [place] [address] Advance Directives Description No Information Available Problems Active Problems Provider Date Intrinsic asthma without status asthmaticus Mian Fuller M.D. Onset: Brachial neuritis Mian Fuller M.D. Onset: 07/03/2009 Anxiety state Mian Fuller M.D. Onset: 07/03/2009 Gastroesophageal reflux disease Mian Fuller M.D. Onset: 06/24/2011 Osteoporosis Mian Fuller M.D. Onset: 10/08/2011 Allergic rhinitis Mian Fuller M.D. Onset: 12/10/2011 Arthralgia of the lower leg Mian Fuller M.D. Onset: 02/14/2012 Localized, primary osteoarthritis Mian Fuller M.D. Onset: 02/24/2012 Essential hypertension Mian Fuller M.D. Onset: 08/09/2013 Uncomplicated moderate persistent asthma Constance Lares M.D. Onset: 07/10/2015 Microscopic hematuria Constance Lares M.D. Onset: 07/14/2015 Uncomplicated moderate persistent asthma Constance Lares M.D. Onset: 07/16/2016 Hyperlipidemia Constance Lares M.D. Onset: 07/19/2016 Lichen sclerosus of female genitalia Constance Lares M.D. Onset: 04/10/2018 Mild major depression, single episode Constance Lares M.D. Onset: 08/24/2018 Resolved Problems Constipation Mian Fuller M.D. Onset: 04/28/2011 Resolved: 07/09/2015 Acute upper respiratory infection Meño Florentino M.D. Onset: 06/18/2011 Resolved: 07/09/2015 Pleurisy without effusion or active Meño Florentino M.D. Onset: 06/18/2011 tuberculosis Resolved: 07/09/2015 Disorder of skin and/or subcutaneous tissue Mian Fuller M.D. Onset: Resolved: 07/09/2015 Contact dermatitis Mian Fuller M.D. Onset: 12/10/2011 Resolved: 07/09/2015 Closed fracture of shaft of bone of forearm Mian Fuller M.D. Onset: Resolved: 07/09/2015 Abdominal pain Mian Fuller M.D. Onset: 09/06/2012 Resolved: 07/09/2015 Nausea Mian Fuller M.D. Onset: 09/06/2012 Resolved: 07/09/2015 Early satiety Mian Fuller M.D. Onset: 08/09/2013 Resolved: 07/09/2015 Family History Date Family Member(s) Observation Comments General No breast or colon cancer, month early myocardial infarction or cerebrovascular accident Father Tuberculosis Father Lung Cancer Mother Uterine Cancer Grandfather Lung Cancer Uncle Lung Cancer Social History Type Date Description Comments Sex Unknown Occupation Disabled Tobacco Use Start: Unknown Never Smoked Cigarettes Cigarette Use Second hand smoke parents and ETOH Use Rare Tobacco Use Start: Unknown Patient has never smoked Allergies, Adverse Reactions, Alerts Active Allergies Reaction Severity Comments Date Aspirin stomach ache 06/05/2009 Shrimp 06/05/2009 [place] 06/05/2009 Bactrim nausea vomiting 08/06/2009 Seafood 12/11/2009 [place] vomiting, diarrhea 04/10/2012 Losartan Urticaria 09/29/2016 Medications Active Medications SIG Qnty Indications Ordering Date Provider Sertraline HCL 1 by mouth every 30tabs Constance Lares, 08/24/2018 50mg day M.D. Tablets Proair HFA 2 puffs every 4-6 8.500gm [facility], 05/17/2018 hours as needed M.D. 108(90Base) mcg/Act for cough Aerosol Cheratussin ac 5 milliliters by 120ml [facility], 10/03/2017 mouth every 6 M.D. 100-10mg/5ML hours as needed Solution Montelukast Sodium 1 by mouth every 30tabs J30.9 Jenny Julia, 08/02/2017 day HOSE SEAMER 10mg Tablets Amlodipine Besylate 1 tab by mouth 30tabs [facility], 09/29/2016 every day M.D. 5mg Tablets Sarna Sensitive apply up to qid Unknown 09/15/2016 1% prn entire body Lotion Symbicort inhale two puffs 10.2units J45.40 [facility], 12/10/2011 by mouth twice a M.D. 160-4.5mcg/Act day Aerosol Fluticasone spray 2 sprays 16units J30.9 [facility], 04/06/2010 Propionate into each nostril M.D. 50mcg/Act once daily Suspension Fiber 1 tab weekly Unknown Clobetasol apply to scalp Unknown Propionate once daily as 0.05% needed Solution Betamethasone apply to affected Unknown Dipropionate Aug area tid 0.05% Gel History Medications Anusol-HC 1 unit per rectum 12units K64.9 [facility], 04/19/2018 - 25mg every evening x 3 M.D. 08/24/2018 Suppository days then as needed Amoxicillin 1 by mouth three 21caps J02.9 [facility], 10/03/2017 - 500mg times a day x 7d M.D. 04/19/2018 Capsules Nystatin 5 milliliters 250ml B37.0 [facility], 05/03/2017 - swish and spit M.D. 07/18/2017 [id number]/ML orally four times Suspension a day Fluconazole one tab by mouth 2tabs B37.0 [facility], 05/03/2017 - 150mg once, may repeat M.D. 07/18/2017 Tablets in five days Cortisporin-TC 4qtts in left ear 10ml H60.8x3 Krysta C. 12/28/2016 - canal 2-3 times a OLYA Rodrigze 05/02/2017 3.3-3-10-0.5mg/ml day for 7d Suspension Sertraline HCL 1 by mouth every 30tabs Constance [place], 10/06/2016 - 50mg day M.D. 08/11/2018 Tablets Hydroxyzine HCL 1 by mouth q6hrs Unknown 09/15/2016 - 05/02/2017 50mg Tablets Zyrtec Allergy 1 by mouth every Unknown 09/15/2016 - 10mg day 05/02/2017 Tablets Cephalexin 1 by mouth tid for Unknown 09/15/2016 - 500mg 7 days 05/02/2017 Capsules Atorvastatin take one tablet by 30tabs Constance [place], 07/20/2016 - Calcium mouth every M.D. 09/08/2016 10mg evening Tablets Cortisporin-TC 4qtts in left ear 10ml H60.8x3 [facility], 07/16/2016 - canal 2-3 times a M.D. 08/05/2016 3.3-3-10-0.5mg/ml day for 7d Suspension Guaifenesin-Codeine 1-2 teaspoon every 120ml R05 Kari 05/19/2016 - at bedtime as Brian, [facility] 06/18/2016 100-10mg/5ML Syrup needed for cough Fioricet take one to 1-2 30caps G44.209 Pushpa Vargas, 12/02/2015 - capsules by mouth [facility] 01/23/2016 50-300-40mg every 4 hours as Capsules needed for headache, maximum 6 per day Meclizine HCL 1/2- 1 tab by 20tabs H81.10 Pushpa Vargas, 12/02/2015 - 25mg mouth 3 times a [facility] 01/17/2016 Tablets day as needed for vertigo Azithromycin take 2 tablets by 6tabs R05 Jenny Dumont, 10/03/2015 - 250mg mouth today then HOSE SEAMER 12/02/2015 Tablets take 1 tablet daily for next 4 days Cortisporin-TC 4qtts in left ear 10ml H60.8x3 Jenny Dumont, 10/03/2015 - canal 2-3 times a [employer]SE SEAMER 12/02/2015 3.3-3-10-0.5mg/ml day for 7d Suspension Cipro HC 3qtts in affected 10ml 380.10 Constance [place], 07/10/2015 - 0.2-1% ear twice a day x M.D. 10/05/2015 Suspension 7d Cheratussin ac 2 teaspoon by 300units J06.9 Jenny Dumont, 07/10/2015 - mouth every 6 [employer] SE[employer]ER 12/02/2015 100-10mg/5ML Syrup hours as needed R05 Atovaquone/Proguanil HCL begin 2d prior to 39tabs Z Andry De Santiago, 2014 - going to the M.D. 07/10/2015 250-100mg Tablets endemic area, daily while there and 7d after leaving Cheratussin ac 2 teaspoon by 300units 465.9 Andry De Santiago, 03/12/2015 - 100-10mg/5ML mouth every 6 M.D. 07/10/2015 Syrup hours as needed Cipro 1 tab twice a day 20tabs [facility] Andry De Santiago, 03/12/2015 - 500mg Tablets for 10 days M.D. 07/10/2015 Transderm-Scop apply one patch 5units [address] [place], 03/12/2015 - 1mg/3Days every three days M.D. 07/10/2015 Patches 72HR as needed Montelukast Sodium 1 by mouth every 30tabs J30.9 [facility], 12/19/2014 - 10mg day M.D. 09/08/2016 Tablets Cipro HC 3qtts in affected 10ml 380.10 Jenny Dumont, 12/19/2014 - 0.2-1% Suspension ear twice a day x [employer]SE SEAMER 03/12/2015 7d Levocetirizine 1 by mouth every 90tabs J30.9 [facility], 12/19/2014 - Dihydrochloride day M.D. 09/08/2016 5mg Tablets Amoxicillin/Clavulanate 1 by mouth twice a 20tabs 381.4 Andry De Santiago, 2014 - Potassium day for 1 0days M.D. 12/19/2014 875-125mg Tablets Cheratussin ac 2 teaspoon by 300units 465.9 Andry De Santiago, 06/21/2014 - 100-10mg/5ML mouth every 6 M.DMelina 11/30/2014 Syrup hours as needed Cefdinir 1 by mouth twice 20caps 465.9 Bianca Acosta 04/09/2014 - 300mg Capsules daily for 10days Chris Rizzo 06/20/2014 Lansoprazole/Amoxicillin as directed for 10 10days 530.81 Andry De Santiago, 02/27 - /Clarithromycin days M.DMelina 11/30/2014 [facility] Cheratussin ac 1 - 2 tsp. by 118ml 466.0 Bianca Acosta 02/27/2014 - 100-10mg/5ML mouth every 4 Chris Rizzo 06/20/2014 Syrup hours as needed for cough Losartan Potassium Take 1 Tablet By 90tabs I10 Kari 02/27/2014 - 100mg Mouth Every Day BRITTANY Torres 09/08/2016 Tablets Ciprofloxacin HCL one tab po bid for 10tabs V65.8 Mian Smiley 09/13/2013 - 250mg five days Chris Fuller 02/27/2014 Tablets Transderm-Scop place behind ear 4 3units V65.8 Mian Smiley 09/13/2013 - 1.5mg Patches hours before Chris Fuller 02/27/2014 72HR getting on ship, replace every 3 days Atovaquone/Proguanil HCL begin 2d prior to 75tabs V65.8 Mian Smiley 2013 - going to the Chris Fuller 02/27/2014 250-100mg Tablets endemic area, daily while there and 7d after leaving, take with food or a milky drink Medrol dose-pack as 1tabs 493.10 Mian Smiley 06/07/2013 - 4mg Tablets instructed Chris Fuller 08/09/2013 Azithromycin 2 po today and 1 6tabs 466.0 Alissa Rai 05/21/2013 - 250mg Tablets tab x 4 days [employer] 05/26/2013 Cheratussin ac 1 - 2 tsp. po q 4 118ml 466.0 Mian Smiley 05/21/2013 - 100-10mg/5ML hrs prn for cough Chris Fuller 06/07/2013 Syrup Tramadol HCL 1-2 Tabs PO AT 40tabs Family 02/15/2013 - 50mg Tablets Bedtime prn Medicine 06/07/2013 [facility] Ondansetron HCL take one tablet by 15tabs 789.00 Mian Smiley 09/06/2012 - 4mg Tablets mouth three times Chris Fuller 06/07/2013 a day as needed for nausea Vivotorey Oneill take 1 qod for 4 4caps V65.8 Jenny Dumont, 07/07/2012 - Capsules DR doses, complete 1 [facility] 09/06/2012 week prior to travel Ciprofloxacin HCL 1 po bid x 10d 20tabs V65.8 Jenny Dumont, 07/07/2012 - 500mg [facility] 09/06/2012 Tablets Atovaquone/Proguanil HCL begin 2d prior to 33tabs V65.8 Jenny Dumont, - going to the [facility] 09/06/2012 250-100mg Tablets endemic area, daily while there and 7d after leaving, take with food or a milky drink Transderm-Scop place behind ear 4 3units V65.8 Jenny Dumont, 07/07/2012 - 1.5mg Patches hours before [facility] 06/07/2013 72HR getting on ship, replace every 3 days Acetaminophen/Codeine #3 one tablet every 6 40tabs 813.20 Mian Smiley 04/10 - hours as needed Chris Fuller 07/06/2012 300-30mg Tablets for pain Note hinged knee brace 719.46 Mian Smiley 02/14/2012 - - right knee Chris Fuller 04/10/2012 diagnosis 719.46 Medrol Dosepak use as directed 1tabs 465.9 Mian Smiley 10/08/2011 - 4mg Tablets Chris Fuller 12/10/2011 Azithromycin 2 po today and 1 6tabs 465.9 Mian Smiley 10/04/2011 - 250mg Tablets po x 4 days Chris Fuller 12/10/2011 Robitussin A/C 1-2 tsp po qhs prn 100ml 465.9 Mian Smiley 10/04/2011 - cough Chris Fuller 12/10/2011 Medrol Dosepak use as directed 1tabs 709.9 Mian Smiley 09/06/2011 - 4mg Tablets Chris Fuller 10/04/2011 Lansoprazole Take One Capsule 30caps Mian Smiley 07/15/2011 - 30mg Capsules By Mouth Every Day Chris Fuller 10/08/2011 Lorazepam 1 po bid prn 15tabs 300.00 Mian Smiley 06/24/2011 - 0.5mg Tablets anxiety Chris Fuller 07/10/2015 Note Noise from 1units 300.00 Mian Smiley 06/24/2011 - neighbors is Chris Fuller 10/04/2011 adversly affecting this patients health, change in apartment would be beneficial Omeprazole take one capsule 90caps Bianca Acosta 06/24/2011 - 20mg Capsules by mouth every day Chris Rizzo 11/30/2014 Zithromax Z-Pepe as directed 1Pack Meño Veronica 06/18/2011 - 250mg Tablets Chris Florentino 06/24/2011 Robitussin A-C 1-2 tsp q4hrs prn 6Oz Meño Veronica 06/18/2011 - cough Chris Florentino 06/24/2011 Naprosyn 1 po bid with 14tabs Meño Veronica 06/18/2011 - 375mg Tablets meals for pain Chris Florentino 06/24/2011 Meclizine HCL take 1 tablet 30tabs Mian Smiley 04/28/2011 - 25mg Tablets three times a day Chris Fuller 06/18/2011 if needed for dizziness Colace 1 po daily prn 30caps 564.00 Mian Smiley 04/28/2011 - 100mg Capsules Chris Fuller 06/07/2013 Lansoprazole 1 po qd 30caps 530.81 Mian Smiley 03/05/2011 - 30mg Capsules DR Jessica M.D. 06/18/2011 Physical Therapy treatment and 1units 715.09 Mian Smiley 01/11/2011 - evaluation of Chris Fuller 04/08/2011 bilateral knee osteoarthritis Losartan Potassium take one tablet by 90tabs 401.9 Mian Smiley 12/24/2010 - 50mg mouth once daily Chris Fuller 02/27/2014 Tablets Physical Therapy treatment and 1units 715.09 Mian Smiley 09/17/2010 - evaluation of Chris Fuller 01/11/2011 bilateral knee osteoarthritis Evista Take One Tablet By 30tabs Mian Smiley 08/26/2010 - 60mg Tablets Mouth Every Day Chris Fuller 01/05/2011 Amoxicillin/Clavulanate 1 po bid 20tabs 461.0 Mian Smiley 06/27/2010 - Potassium Chris Fuller 07/08/2010 500-125mg Tablets Fluconazole one tab po once 1tabs 112.9 Mian Smiley 06/27/2010 - 150mg Tablets Chris Fuller 07/08/2010 Nexium Take One Capsule 90caps 530.81 Mian Smiley 05/06/2010 - 40mg Capsules DR By Mouth Every Day Chris Fuller 03/05/2011 Vicodin 1 to 2 po every 30tabs 786.52 Braeden Zheng 04/30/2010 - 5-500mg Tablets six hours prn. Chris Cote 09/06/2012 Note please excuse from 1units 786.50 Mian Smiley 04/30/2010 - work today and Chris Fuller 05/06/2010 tomorrow due to illness Cozaar take one tablet by 90tabs Meño Veronica 03/15/2010 - 50mg Tabs mouth every day Chris Florentino 12/24/2010 Azithromycin 2 po today and 1 6tabs 465.9 Mian AMelina 01/08/2010 - 250mg Tablets po x 4 days Chris Fuller 03/16/2010 Docusate Sodium take 1 capsule 90caps Mian Smiley 01/08/2010 - 100mg once to twice Chris Fuller 05/06/2010 Capsules daily as needed for constipation. Robitussin A-C 1-2 tsp po q4h prn 120ml Mian Smiley 01/08/2010 - cough Chris Fuller 03/16/2010 Vicodin 1 po every four 60tabs 724.2 Mian Smiley 12/11/2009 - 5-500mg Tablets hours prn. Chris Fuller 03/16/2010 Naproxen 1 po bid prn 30tabs 729.1 Meño Veronica 11/06/2009 - 500mg Tablets Chris Florentino 07/08/2010 Losartan Potassium 1 po qd 30tabs Mian Smiley 11/06/2009 - 50mg Chris Fuller 03/15/2010 Tablets Levaquin 1 po qd 7tabs 465.9 Mian Smiley 10/22/2009 - 500mg Tablets Chris Fuller 11/06/2009 Tussionex Pennkinetic ER 5ml po q12 hours 70ml 465.9 Mian Smiley 2009 - Chris Fuller 10/22/2009 8-10mg/5ML Liquid ER Robitussin A-C 1-2 tsp po q4h prn 120ml 465.9 Mian Smiley 10/22/2009 - cough Chris Fuller 11/06/2009 Zithromax Z-Pepe as directed 1Pack 460 Maurisio Smiley 10/16/2009 - 250mg Tablets Chris Tovar 10/21/2009 Tessalon Perles 1 bid prn cough 20caps 460 Maurisio Smiley 10/16/2009 - 100mg Chris Tovar 10/26/2009 Capsules Robitussin A/C 1-2 tsp po every 80ml 465.9 Mian Smiley 09/10/2009 - six hours prn Chris Fuller 10/16/2009 cough Azithromycin 2 po today and 1 6tabs 465.9 Mian Smiley 09/10/2009 - 250mg Tablets po x 4 days Chris Fuller 10/16/2009 Miralax 1 capful in 8 oz 1bottle Mian Smiley 09/10/2009 - 3350NF Powder of liquid, take Chris Fuller 05/06/2010 1-2 times daily Bactrim DS 1 po bid 20tabs 709.9 Mian Smilye 07/28/2009 - 800-160mg Tablets Chris Fuller 09/10/2009 Peg 3350 dissolve in 4-8 4Days Mian Smiley 07/03/2009 - 17G Packet ounces of juice or Chris Fuller 11/20/2009 water daily for 2-4 days Advair Diskus Inhale One puff By 60units 493.10 Mian Smiley 07/03/2009 - 250-50mcg/Dose Mouth Twice A Day Chris Fuller 12/10/2011 Aerosol Zoloft 1 po qd 30tabs 300.00 Mian Smiley 06/12/2009 - 50mg Tablets Chris Fuller 11/20/2009 Alendronate Sodium take one tablet by 12tabs M81.0 Constance [place], 2009 - 70mg mouth once weekly M.DMelina 09/08/2016 Tablets Sertraline HCL take one and 60tabs F32.0 [facility], 06/05/2009 - 100mg Tablets one-half tablet by Lucero.Cornelius 09/08/2016 mouth every day Ventolin HFA inhale 2 puffs one 18units Constance [place], 06/05/2009 - 108(90Base) to four times a M.D. 05/17/2018 mcg/Act Aerosol day as needed Cheratussin ac 1-2 tsp every 4-6 120ml Family 06/05/2009 - 100-10mg/5ML hours prn cough Medicine 07/03/2009 [facility] Fluticasone Propionate 2 sprays each 1units Alonso A. 06/05/2009 - nostril daily Chris Fuller 04/30/2010 50mcg/Act Suspension Flovent HFA 2 puff bid 1units [facility] 06/05/2009 - 110mcg/Act Medicine 07/03/2009 [facility] Prilosec OTC 1 po qd 30tabs 530.81 Mian Smiley 06/05/2009 - 20mg Tablets DR Jessica M.D. 05/06/2010 Lisinopril 1 po qd 90tabs Meño Veronica 06/05/2009 - 10mg Tablets Chris Florentino 11/06/2009 Evista 1 po qd 30tabs Mian Smiley 06/05/2009 - 60mg Tablets Chris Fuller 05/06/2010 Multi-Vitamin 1 po qd Family 06/05/2009 - Tablets Medicine 01/11/2011 [facility] Caltrate 600+D 1 po bid 60tabs Elma AMelina 06/05/2009 - [id number] Chris Fuller 07/06/2012 Tablets Methylprednisolone (Pepe) as directed 1tabs Unknown - 4mg 10/16/2009 Tablets Ibuprofen 3 po qam and 3 po Unknown - 200mg Tablets qpm prn for pain 06/07/2013 Nicole Allergy take one tablet by Unknown - 180mg Tablets mouth every day 08/24/2018 (allergies) Medications Administered in Office Medication SIG Qnty Indications Ordering Provider Date TB Intradermal Test Mian Fuller M.D. 07/22/2010 Injection TB Intradermal Test Mian Fuller M.D. 06/09/2009 Injection Immunizations CPT Code Status Date Vaccine Lot # [id number] Given 01/28/2018 High-Dose, Influenza Virus Vacccine-fluzone 65 [id number] and older 79249 Given 07/19/2017 Pneumococcal Conjugate Vacc-13 [id number] 03159 Given 02/17/2017 High-Dose, Influenza Virus Vacccine-fluzone 65 [id number] and older 30608 Given 02/25/2016 Influenza Vac, Quadrivalent, Slit Virus, Im [id number] 88190 Given 01/29/2015 Influenza Vac, Quadrivalent, Slit Virus, Im [id number] 94538 Given 02/27/2014 DO Not Use Split Influenza Virus Vaccine [id number] 75452 Given 01/17/2013 DO Not Use Split Influenza Virus Vaccine [id number] 08351 Given 01/17/2013 Hep A & Hep B Adult, adult dosage, for [id number] intramuscular use 63664 Given 07/07/2012 Hep A & Hep B Adult, adult dosage, for [id number] intramuscular use 55083 Given 01/26/2012 DO Not Use Split Influenza Virus Vaccine [id number] 20943 Given 01/11/2011 DO Not Use Split Influenza Virus Vaccine [id number] 15934 Given 01/31/2010 DO Not Use Split Influenza Virus Vaccine [id number] 14221 Given 01/08/2010 Tdap Tetanus, W Pertussis [id number] 56519 Given 06/05/2009 Pneumococcal Immunization [id number] Vital Signs Date Vital Result Comment 08/24/2018 11:35am BP Systolic 120 mmHg BP Diastolic 80 mmHg Heart Rate 64 /min Body Temperature 98.4 F Respiratory Rate 12 /min Height 61.5 inches 5'1.50" Weight 120.00 lb BMI (Body Mass Index) 22.3 kg/m2 04/19/2018 8:54am BP Systolic 130 mmHg BP Diastolic 84 mmHg Heart Rate 64 /min Body Temperature 97.7 F Respiratory Rate 16 /min Height 61.75 inches 5'1.75" Weight 129.00 lb BMI (Body Mass Index) 23.8 kg/m2 10/03/2017 12:36pm BP Systolic 110 mmHg BP Diastolic 60 mmHg Heart Rate 84 /min Body Temperature 98.6 F Respiratory Rate 16 /min Height 61.75 inches 5'1.75" Weight 132.25 lb BMI (Body Mass Index) 24.4 kg/m2 07/19/2017 9:03am BP Systolic 130 mmHg BP Diastolic 70 mmHg Heart Rate 76 /min Body Temperature 98.2 F Respiratory Rate 16 /min Height 61.75 inches 5'1.75" Weight 130.00 lb BMI (Body Mass Index) 24.0 kg/m2 05/03/2017 9:40am BP Systolic 140 mmHg BP Diastolic 80 mmHg Heart Rate 78 /min Body Temperature 98.1 F Height 61.75 inches 5'1.75" Weight 129.00 lb BMI (Body Mass Index) 23.8 kg/m2 01/19/2017 9:53am BP Systolic 120 mmHg BP Diastolic 80 mmHg Heart Rate 68 /min Body Temperature 98.2 F Respiratory Rate 16 /min Height 61.75 inches 5'1.75" Weight 131.00 lb BMI (Body Mass Index) 24.2 kg/m2 09/15/2016 3:31pm BP Systolic 120 mmHg BP Diastolic 70 mmHg Heart Rate 66 /min Body Temperature 98.6 F Respiratory Rate 16 /min Height 61.75 inches 5'1.75" Weight 129.12 lb BMI (Body Mass Index) 23.8 kg/m2 07/16/2016 9:35am BP Systolic 132 mmHg BP Diastolic 84 mmHg Heart Rate 80 /min Body Temperature 98.0 F Respiratory Rate 18 /min Height 61.75 inches 5'1.75" Weight 133.00 lb BMI (Body Mass Index) 24.5 kg/m2 05/19/2016 9:07am BP Systolic 130 mmHg BP Diastolic 80 mmHg Heart Rate 90 /min Body Temperature 97.9 F Height 61.75 inches 5'1.75" Weight 133.12 lb BMI (Body Mass Index) 24.5 kg/m2 12/02/2015 9:57am BP Systolic 110 mmHg BP Diastolic 70 mmHg Heart Rate 68 /min Body Temperature 97.9 F Respiratory Rate 18 /min Height 61.75 inches 5'1.75" Weight 135.00 lb BMI (Body Mass Index) 24.9 kg/m2 10/03/2015 9:31am BP Systolic 128 mmHg BP Diastolic 80 mmHg Heart Rate 72 /min Body Temperature 98.1 F Respiratory Rate 16 /min O2 % BldC Oximetry 98 % Height 61.75 inches 5'1.75" Weight 134.00 lb BMI (Body Mass Index) 24.7 kg/m2 07/10/2015 5:08pm BP Systolic 142 mmHg BP Diastolic 82 mmHg Heart Rate 68 /min Body Temperature 98.3 F Height 61.75 inches 5'1.75" Weight 134.00 lb BMI (Body Mass Index) 24.7 kg/m2 03/12/2015 2:34pm BP Systolic 126 mmHg BP Diastolic 80 mmHg Heart Rate 72 /min Body Temperature 97.4 F Respiratory Rate 16 /min Height 61.75 inches 5'1.75" Weight 136.00 lb BMI (Body Mass Index) 25.1 kg/m2 12/19/2014 4:44pm BP Systolic 124 mmHg BP Diastolic 82 mmHg Heart Rate 72 /min Body Temperature 97.7 F Respiratory Rate 16 /min Height 61.75 inches 5'1.75" 11/30/2014 9:41am BP Systolic 122 mmHg BP Diastolic 64 mmHg Heart Rate 72 /min Body Temperature 97.6 F Respiratory Rate 16 /min Height 61.75 inches 5'1.75" Weight 139.00 lb BMI (Body Mass Index) 25.6 kg/m2 06/21/2014 2:22pm BP Systolic 140 mmHg BP Diastolic 90 mmHg Heart Rate 84 /min Body Temperature 98.7 F Height 61.75 inches 5'1.75" Weight 136.00 lb BMI (Body Mass Index) 25.1 kg/m2 04/09/2014 3:57pm BP Systolic 120 mmHg BP Diastolic 80 mmHg Heart Rate 68 /min Body Temperature 98.3 F Respiratory Rate 18 /min Height 61.75 inches 5'1.75" Weight 136.00 lb BMI (Body Mass Index) 25.1 kg/m2 02/27/2014 7:01pm BP Systolic 170 mmHg BP Diastolic 100 mmHg Heart Rate 80 /min Body Temperature 98.9 F Respiratory Rate 18 /min Height 61.75 inches 5'1.75" Weight 138.00 lb BMI (Body Mass Index) 25.4 kg/m2 09/13/2013 5:08pm BP Systolic 138 mmHg BP Diastolic 88 mmHg Heart Rate 84 /min Body Temperature 98.0 F Respiratory Rate 16 /min Height 61.75 inches 5'1.75" Weight 137.00 lb BMI (Body Mass Index) 25.3 kg/m2 08/09/2013 5:07pm BP Systolic 150 mmHg BP Diastolic 80 mmHg Heart Rate 76 /min Body Temperature 98.4 F Respiratory Rate 16 /min Height 61.75 inches 5'1.75" Weight 141.00 lb BMI (Body Mass Index) 26.0 kg/m2 06/07/2013 7:14pm BP Systolic 112 mmHg BP Diastolic 80 mmHg Heart Rate 72 /min Body Temperature 98.2 F Height 62.5 inches 5'2.50" Weight 137.38 lb BMI (Body Mass Index) 24.7 kg/m2 05/21/2013 6:38pm BP Systolic 120 mmHg BP Diastolic 78 mmHg Heart Rate 72 /min Body Temperature 98.6 F Respiratory Rate 18 /min Height 62.5 inches 5'2.50" Weight 140.00 lb BMI (Body Mass Index) 25.2 kg/m2 02/15/2013 6:49pm BP Systolic 110 mmHg BP Diastolic 84 mmHg Heart Rate 78 /min Body Temperature 98.1 F Height 62.5 inches 5'2.50" Weight 136.38 lb BMI (Body Mass Index) 24.5 kg/m2 09/06/2012 1:37pm BP Systolic 114 mmHg BP Diastolic 78 mmHg Heart Rate 76 /min Body Temperature 98.0 F Respiratory Rate 16 /min O2 % BldC Oximetry 99 % Height 62.5 inches 5'2.50" Weight 131.00 lb BMI (Body Mass Index) 23.6 kg/m2 07/07/2012 4:12pm BP Systolic 100 mmHg BP Diastolic 74 mmHg Heart Rate 78 /min Body Temperature 98.2 F Height 62.5 inches 5'2.50" Weight 137.38 lb BMI (Body Mass Index) 24.7 kg/m2 04/10/2012 8:05am BP Systolic 134 mmHg BP Diastolic 82 mmHg Heart Rate 72 /min Body Temperature 97.9 F Height 62.5 inches 5'2.50" Weight 134.00 lb BMI (Body Mass Index) 24.1 kg/m2 02/24/2012 5:57pm BP Systolic 136 mmHg BP Diastolic 80 mmHg Heart Rate 72 /min Body Temperature 98.0 F Height 62.5 inches 5'2.50" Weight 131.00 lb BMI (Body Mass Index) 23.6 kg/m2 02/14/2012 4:46pm BP Systolic 110 mmHg BP Diastolic 82 mmHg Heart Rate 72 /min Body Temperature 98.3 F Height 62.5 inches 5'2.50" Weight 132.00 lb BMI (Body Mass Index) 23.8 kg/m2 12/10/2011 8:51am BP Systolic 110 mmHg BP Diastolic 76 mmHg Heart Rate 64 /min Body Temperature 98.4 F Height 62.5 inches 5'2.50" Weight 133.00 lb BMI (Body Mass Index) 23.9 kg/m2 10/08/2011 10:44am BP Systolic 118 mmHg BP Diastolic 82 mmHg Heart Rate 68 /min Body Temperature 97.8 F Height 62.5 inches 5'2.50" Weight 132.00 lb BMI (Body Mass Index) 23.8 kg/m2 10/04/2011 3:36pm BP Systolic 128 mmHg BP Diastolic 88 mmHg Heart Rate 72 /min Body Temperature 99.3 F Height 62.5 inches 5'2.50" Weight 132.00 lb BMI (Body Mass Index) 23.8 kg/m2 09/06/2011 3:03pm BP Systolic 100 mmHg BP Diastolic 60 mmHg Heart Rate 80 /min Body Temperature 98.0 F Respiratory Rate 20 /min Height 62.5 inches 5'2.50" Weight 138.00 lb BMI (Body Mass Index) 24.8 kg/m2 06/24/2011 7:48pm BP Systolic 116 mmHg BP Diastolic 82 mmHg Heart Rate 97 /min Body Temperature 98.7 F O2 % BldC Oximetry 97 % Height 62.5 inches 5'2.50" Weight 132.00 lb BMI (Body Mass Index) 23.8 kg/m2 06/18/2011 4:19pm BP Systolic 120 mmHg BP Diastolic 78 mmHg Heart Rate 78 /min Body Temperature 97.5 F Height 62.5 inches 5'2.50" Weight 132.00 lb BMI (Body Mass Index) 23.8 kg/m2 04/28/2011 8:31am BP Systolic 112 mmHg BP Diastolic 64 mmHg Heart Rate 72 /min Body Temperature 98.5 F Height 62.5 inches 5'2.50" Weight 131.00 lb BMI (Body Mass Index) 23.6 kg/m2 04/08/2011 5:08pm BP Systolic 100 mmHg BP Diastolic 66 mmHg Heart Rate 84 /min Body Temperature 97.9 F Height 62.5 inches 5'2.50" Weight 130.00 lb BMI (Body Mass Index) 23.4 kg/m2 01/11/2011 8:09am BP Systolic 120 mmHg BP Diastolic 66 mmHg Heart Rate 84 /min Body Temperature 98.2 F Height 62.5 inches 5'2.50" Weight 136.00 lb BMI (Body Mass Index) 24.5 kg/m2 09/17/2010 6:02pm BP Systolic 120 mmHg BP Diastolic 84 mmHg Heart Rate 72 /min Body Temperature 98.3 F Height 62.5 inches 5'2.50" Weight 130.00 lb BMI (Body Mass Index) 23.4 kg/m2 07/08/2010 7:58am BP Systolic 130 mmHg BP Diastolic 80 mmHg Heart Rate 76 /min Body Temperature 97.4 F Height 62.5 inches 5'2.50" Weight 135.00 lb BMI (Body Mass Index) 24.3 kg/m2 06/27/2010 11:43am BP Systolic 140 mmHg BP Diastolic 80 mmHg Heart Rate 68 /min Body Temperature 98.3 F Weight 132.00 lb 05/06/2010 2:19pm BP Systolic 128 mmHg BP Diastolic 84 mmHg Heart Rate 72 /min Body Temperature 98.7 F Height 62.5 inches 5'2.50" Weight 135.00 lb BMI (Body Mass Index) 24.3 kg/m2 04/30/2010 8:27pm BP Systolic 108 mmHg BP Diastolic 60 mmHg Heart Rate 76 /min Body Temperature 98.2 F O2 % BldC Oximetry 98 % Height 62.5 inches 5'2.50" Weight 133.00 lb BMI (Body Mass Index) 23.9 kg/m2 04/20/2010 11:07am BP Systolic 152 mmHg BP Diastolic 84 mmHg Heart Rate 64 /min Body Temperature 98.1 F Height 62.5 inches 5'2.50" Weight 130.00 lb BMI (Body Mass Index) 23.4 kg/m2 03/25/2010 7:21pm BP Systolic 120 mmHg BP Diastolic 70 mmHg Heart Rate 80 /min Body Temperature 98.7 F Height 62.5 inches 5'2.50" Weight 132.00 lb BMI (Body Mass Index) 23.8 kg/m2 01/08/2010 8:14am BP Systolic 138 mmHg BP Diastolic 72 mmHg Heart Rate 72 /min Body Temperature 97.9 F Respiratory Rate 16 /min Height 62.5 inches 5'2.50" Weight 129.00 lb BMI (Body Mass Index) 23.2 kg/m2 12/11/2009 5:08pm BP Systolic 120 mmHg BP Diastolic 72 mmHg Heart Rate 80 /min Body Temperature 89.9 F Respiratory Rate 16 /min Height 62.5 inches 5'2.50" Weight 130.00 lb BMI (Body Mass Index) 23.4 kg/m2 11/20/2009 7:19pm BP Systolic 130 mmHg BP Diastolic 70 mmHg Heart Rate 64 /min Body Temperature 98.4 F Respiratory Rate 20 /min Height 62.5 inches 5'2.50" Weight 128.00 lb BMI (Body Mass Index) 23.0 kg/m2 11/06/2009 6:02pm BP Systolic 120 mmHg BP Diastolic 70 mmHg Heart Rate 72 /min Body Temperature 98.7 F Height 62.5 inches 5'2.50" Weight 126.00 lb BMI (Body Mass Index) 22.7 kg/m2 10/22/2009 8:56am BP Systolic 116 mmHg BP Diastolic 74 mmHg Heart Rate 66 /min Body Temperature 98.6 F Respiratory Rate 18 /min O2 % BldC Oximetry 97 % Height 62.5 inches 5'2.50" Weight 127.00 lb BMI (Body Mass Index) 22.9 kg/m2 10/16/2009 7:26pm BP Systolic 130 mmHg BP Diastolic 80 mmHg Heart Rate 64 /min Body Temperature 97.8 F Respiratory Rate 20 /min O2 % BldC Oximetry 96 % Height 62.5 inches 5'2.50" Weight 128.00 lb BMI (Body Mass Index) 23.0 kg/m2 09/10/2009 7:29pm BP Systolic 100 mmHg BP Diastolic 70 mmHg Heart Rate 60 /min Body Temperature 98.5 F Weight 139.00 lb 08/06/2009 9:31am BP Systolic 110 mmHg BP Diastolic 80 mmHg Heart Rate 68 /min Body Temperature 98.7 F Weight 127.00 lb 07/28/2009 8:37am BP Systolic 110 mmHg BP Diastolic 70 mmHg Heart Rate 72 /min Body Temperature 98.3 F Weight 128.00 lb 07/03/2009 5:49pm BP Systolic 122 mmHg BP Diastolic 82 mmHg Heart Rate 72 /min Body Temperature 98.6 F Respiratory Rate 16 /min Weight 123.00 lb 06/12/2009 7:54pm BP Systolic 124 mmHg BP Diastolic 78 mmHg Heart Rate 84 /min Body Temperature 98.5 F Respiratory Rate 16 /min Weight 125.00 lb 06/05/2009 7:31pm BP Systolic 120 mmHg BP Diastolic 72 mmHg Heart Rate 72 /min Body Temperature 98.4 F Respiratory Rate 16 /min Height 62.5 inches 5'2.50" Weight 124.00 lb BMI (Body Mass Index) 22.3 kg/m2 Results Test Date Facility Test Result H/L Range Note CBC Electronic a 07/19/2017 Peng Gloria([facility]) WBC 5.1 x10^3/UL 4.0- 10.0 RBC 4.74 x10^6/UL 3.93-6.00 HGB 14.3 g/dL 12.0-17.0 HCT 42 % 35-50 MCV 87.6 fL 80.0-95.0 MCH 30.2 pg 25.6-32.2 MCHC 34.5 g/dL 32.2-36.0 RDW-CV 12.5 % 11.6-14.4 PLT 258 x10^3/UL 163-400 MPV 10.4 fL 9.4-12.4 [place]# 3.18 x10^3/UL 1.56-6.13 Lymph# 1.44 x10^3/UL 1.18-3.74 [place]# 0.34 x10^3/UL 0.24-0.82 Eos # 0.2 x10^3/UL 0.0-0.5 Baso # 0.03 x10^3/UL 0.01-0.08 [place]% 61.9 % 34.0-70.0 Lymph % 28.0 % 20.0-52.0 [place]% 6.6 % 5.0-12.0 Eos% 2.9 % 0.7-7.0 Baso% 0.6 % 0.1-1.2 Ua - Non Micro (a) 07/19/2017 [facility] Appearance yellow (607)- - Color clear Glucose, Urine (Fma/CMC/CTX) neg Bilirubin neg Ketones neg SP Grav >=1.030 Blood neg PH 5.5 Protein neg Urobil 0.2 Nitrite neg Leukocytes (a[place] neg Comprehensive Metabolic 07/19/2017 Danish Castro([facility]) Sodium 141 mEq/L 134-149 Prof Potassium 4.3 mEq/L 3.6-5.5 Chloride 102 mEq/L 94-112 Carbon Dioxide 23 mEq/L 21-32 Glucose 97 mg/dL 70-105 BUN 15 mg/dL 6-26 Creatinine 0.6 mg/dL 0.6-1.4 BUN/Creat Ratio 25.0 CALC 8.0-36.0 Calcium 9.9 mg/dL 8.6-10.2 Total Protein 7.3 g/dL 6.4-8.3 Albumin 4.5 g/dL 3.8-5.5 Globulin 2.8 g/dL 2.0-4.8 A/G Ratio 1.6 CALC 0.6-2.3 Alk. Phosphatase 59 U/L 30-110 Alt (SGPT) 18 U/L 7-35 Ast (Sgot) 19 U/L 5-34 Total Bilirubin 0.7 mg/dL 0.2-1.3 GFR Non- >60 ml/min/1.73m^ >=60 GFR >60 ml/min/1.73m^ >=60 Laboratory test finding 07/19/2017 Danish Castro([facility]) TSH 2.80 mIU/L 0.50-6.00 Free T4 0.94 ng/dL 0.75-1.54 Lipid Profile 07/19/2017 Danish Castro(a) Cholesterol 221 mg/dL High 120-200 Triglycerides 91 mg/dL 30-200 HDL Cholesterol 60 mg/dL 30-85 LDL (Calculated) 143 CALC High 0-129 VLDL Cholesterol 18 mg/dL 0-50 HDL Risk Factor 3.7 CALC 0.0-4.4 Laboratory test finding 09/13/2016 [facility] [place] Culture SEE RESULT BELOW 1 Urinalysis Profile 09/13/2016 [facility] Urine Color Straw N Urine Appearance Clear N Urine Specific [place] 1.006 Low 1.010-1.030 Urine pH 7.0 N 5-9 Urine Urobilinogen Negative N Negative Urine Ketones Negative N Negative Urine Protein Negative N Negative Urine Leukocytes Negative N Negative Urine Blood Negative N Negative Urine Nitrite Negative N Negative Urine Bilirubin Negative N Negative Urine Glucose Negative N Negative Laboratory test finding 09/13/2016 [facility] Inr/Protime 1.03 N 0.89-1.11 Partial Thrombo Time PTT 16.6 seconds Low 26.0-36.3 Fibrinogen 579 mg/dL High 110.8-404.3 Comp Metabolic Panel 09/13/2016 [facility] Sodium 132 mmol/L Low 133-145 Potassium 3.9 mmol/L N 3.5-5.0 Chloride 99 mmol/L Low 101-111 Co2 Carbon Dioxide 23 mmol/L N 22-32 Anion Gap 10 mmol/L N 2-11 Glucose 115 mg/dL High 70-100 Blood Urea Nitrogen 18 mg/dL N 6-24 Creatinine 0.73 mg/dL N 0.51-0.95 BUN/Creatinine Ratio 24.7 High 8-20 Calcium 9.4 mg/dL N 8.6-10.3 Total Protein 7.3 g/dL N 6.4-8.9 Albumin 3.5 g/dL N 3.2-5.2 Globulin 3.8 g/dL N 2-4 Albumin/Globulin Ratio 0.9 Low 1-3 Total Bilirubin 0.80 mg/dL N 0.2-1.0 Alkaline Phosphatase 50 U/L N 34-104 Alt 15 U/L N 7-52 Ast 14 U/L N 13-39 Egfr Non- 80.0 N >60 Egfr 102.9 N >60 2 Laboratory test finding 09/13/2016 [facility] C Reactive Protein 249.64 mg/L High < 5.00 3 Troponin I 0.01 ng/mL N <0.04 4 Laboratory test finding 09/13/2016 [facility] [place]rythrocyte Sed Rate 77 mm/Hr High 0-40 Manual Differential 09/13/2016 [facility] Immature Granulocytes 15 % High 0-9 Neutrophil % 74 % N 38-83 Band % 13 % High 0-8 Lymphocytes % 10 % Low 25-47 Eosinophils % 1 % N 0-6 Metamyelocytes % 2 % N 0-2 RBC Morphology Normal N Normal CBC Auto Diff 09/13/2016 [facility] White Blood Count 16.1 10^3/uL High 3.5- 10.8 Red Blood Count 4.55 10^6/uL N 4.0-5.4 Hemoglobin 13.2 g/dL N 12.0-16.0 Hematocrit 40 % N 35-47 Mean Corpuscular Volume 87 fL N 80-97 Mean Corpuscular Hemoglobin 29 pg N 27-31 Mean Corpuscular HGB Conc 34 g/dL N 31-36 Red Cell Distribution Width 14 % N 10.5-15 Platelet Count 288 10^3/uL N 150-450 Mean Platelet Volume 8 um3 N 7.4-10.4 Abs Neutrophils 14.9 10^3/uL High 1.5-7.7 Abs Lymphocytes 1.0 10^3/uL N 1.0-4.8 Abs Monocytes 0.1 10^3/uL N 0-0.8 Abs Eosinophils 0.1 10^3/uL N 0-0.6 Abs Basophils 0 10^3/uL N 0-0.2 Abs Nucleated RBC 0 10^3/uL N Granulocyte % 92.3 % High 38-83 Lymphocyte % 6.4 % Low 25-47 Monocyte % 0.7 % Low 1-9 Eosinophil % 0.5 % N 0-6 Basophil % 0.1 % N 0-2 Nucleated Red Blood Cells % 0 N Laboratory test finding 09/08/2016 [facility] Lipase 12 U/L N 11.0-82.0 Creatine Kinase(CK) 72 U/L N 10-223 C Reactive Protein 23.25 mg/L High < 5.00 5 TSH (Thyroid Stim Horm) 0.69 mcIU/mL N 0.34-5.60 CBC Auto Diff 09/08/2016 [facility] White Blood Count 13.9 10^3/uL High 3.5- 10.8 Red Blood Count 4.06 10^6/uL N 4.0-5.4 Hemoglobin 12.0 g/dL N 12.0-16.0 Hematocrit 36 % N 35-47 Mean Corpuscular Volume 89 fL N 80-97 Mean Corpuscular Hemoglobin 30 pg N 27-31 Mean Corpuscular HGB Conc 33 g/dL N 31-36 Red Cell Distribution Width 14 % N 10.5-15 Platelet Count 191 10^3/uL N 150-450 Mean Platelet Volume 9 um3 N 7.4-10.4 Abs Neutrophils 12.8 10^3/uL High 1.5-7.7 Abs Lymphocytes 0.6 10^3/uL Low 1.0-4.8 Abs Monocytes 0.5 10^3/uL N 0-0.8 Abs Eosinophils 0 10^3/uL N 0-0.6 Abs Basophils 0 10^3/uL N 0-0.2 Abs Nucleated RBC 0 10^3/uL N Granulocyte % 91.8 % High 38-83 Lymphocyte % 4.3 % Low 25-47 Monocyte % 3.4 % N 1-9 Eosinophil % 0.1 % N 0-6 Basophil % 0.4 % N 0-2 Nucleated Red Blood Cells % 0 N Inr/Protime 09/08/2016 [facility] Inr 0.85 Low 0.89-1.11 Laboratory test finding 09/08/2016 [facility] Partial Thrombo 22.7 seconds Low 26.0-36.3 Time PTT Lactic Acid 1.5 mmol/L N 0.5-2.0 6 Comp Metabolic Panel 09/08/2016 [facility] Sodium 138 mmol/L N 133-145 Chloride 109 mmol/L N 101-111 Co2 Carbon Dioxide 22 mmol/L N 22-32 Glucose 117 mg/dL High 70-100 Blood Urea Nitrogen 20 mg/dL N 6-24 Creatinine 0.69 mg/dL N 0.51-0.95 BUN/Creatinine Ratio 29.0 High 8-20 Calcium 8.5 mg/dL Low 8.6-10.3 Total Protein 6.6 g/dL N 6.4-8.9 Albumin 3.6 g/dL N 3.2-5.2 Globulin 3.0 g/dL N 2-4 Albumin/Globulin Ratio 1.2 N 1-3 Total Bilirubin 0.50 mg/dL N 0.2-1.0 Alkaline Phosphatase 36 U/L N 34-104 Alt 17 U/L N 7-52 Egfr Non- 85.4 N >60 Egfr 109.8 N >60 7 Potassium 3.7 mmol/L N 3.5-5.0 Anion Gap 7 mmol/L N 2-11 Ast 21 U/L N 13-39 Comprehensive Metabolic 07/16/2016 Peng Gloria([facility]) Sodium 142 mEq/L 134-149 Prof Potassium 4.0 mEq/L 3.6-5.5 Chloride 106 mEq/L 94-112 Carbon Dioxide 22 mEq/L 21-32 Glucose 79 mg/dL 70-105 BUN 21 mg/dL 6-26 Creatinine 0.7 mg/dL 0.6-1.4 BUN/Creat Ratio 30.0 CALC 8.0-36.0 Calcium 10.2 mg/dL 8.6-10.2 Total Protein 7.9 g/dL 6.4-8.3 Albumin 4.5 g/dL 3.8-5.5 Globulin 3.4 g/dL 2.0-4.8 A/G Ratio 1.3 CALC 0.6-2.3 Alk. Phosphatase 49 U/L 30-110 Alt (SGPT) 30 U/L 7-35 Ast (Sgot) 29 U/L 5-34 Total Bilirubin 0.5 mg/dL 0.2-1.3 GFR Non- >60 ml/min/1.73m^ >=60 GFR >60 ml/min/1.73m^ >=60 Lipid Profile 07/16/2016 Danish Castro([facility]) Cholesterol 293 mg/dL High 120-200 Triglycerides 154 mg/dL 30-200 HDL Cholesterol 75 mg/dL 30-85 LDL (Calculated) 187 CALC High 0-129 VLDL Cholesterol 31 mg/dL 0-50 HDL Risk Factor 3.9 CALC 0.0-4.4 Complete Blood Count 07/16/2016 Danish Castro([facility]) WBC 9.1 x10^3/UL 3.6 -9.6 RBC 4.67 x10^6/UL 3.90-5.70 HGB 14.0 g/dL 12.1-17.2 HCT 41 % 36-50 MCV 89.0 fL 82.2-97.4 MCH 30.0 pg 27.6-33.3 MCHC 33.9 g/dL 33.0-35.5 RDW 14.6 % High 11.6-13.7 PLT 276 x10^3/UL 150-400 MPV 7.6 fL 7.4-10.4 Gran # 6.8 x10^3/UL 1.5-7.2 Lymph# 1.9 x10^3/UL 0.7-4.9 [place]# 0.4 x10^3/UL 0.1-0.9 Gran % 73.2 % 42.2-75.2 Lymph % 21.6 % 20.5-51.1 [place]% 5.2 % 1.7-9.3 Laboratory test 07/16/2016 Danish Castro([facility]) Free T4 0.71 ng/dL Low 0.75-1.54 8 finding TSH 2.18 mIU/L 0.50-6.00 Influenza A&B-fma 05/19/2016 [facility] Influenza A neg (607)- - Influenza B neg Comprehensive Metabolic 07/11/2015 Danish Castro([facility]) Sodium 139 mEq/L 134-149 Prof Potassium 4.1 mEq/L 3.6-5.5 Chloride 103 mEq/L 94-112 Carbon Dioxide 23 mEq/L 21-32 Glucose 102 mg/dL 70-105 BUN 21 mg/dL 6-26 Creatinine 0.6 mg/dL 0.6-1.4 BUN/Creat Ratio 35.0 CALC 8.0-36.0 Calcium 9.2 mg/dL 8.6-10.2 Total Protein 7.3 g/dL 6.4-8.3 Albumin 4.4 g/dL 3.8-5.5 Globulin 2.9 g/dL 2.0-4.8 A/G Ratio 1.5 CALC 0.6-2.3 Alk. Phosphatase 54 U/L 30-110 Alt (SGPT) 23 U/L 7-35 Ast (Sgot) 23 U/L 5-34 Total Bilirubin 0.5 mg/dL 0.2-1.3 GFR Non- >60 ml/min/1.73m^ >=60 GFR >60 ml/min/1.73m^ >=60 Lipid Profile 07/11/2015 Danish Castro([facility]) Cholesterol 238 mg/dL High 120-200 Triglycerides 86 mg/dL 30-200 HDL Cholesterol 62 mg/dL 30-85 LDL (Calculated) 159 CALC High 0-129 VLDL Cholesterol 17 mg/dL 0-50 HDL Risk Factor 3.8 CALC 0.0-4.4 Complete Blood Count 07/11/2015 Danish Castro([facility]) WBC 4.7 x10^3/UL 3.6 -9.6 RBC 4.49 x10^6/UL 3.90-5.70 HGB 13.5 g/dL 12.1-17.2 HCT 40 % 36-50 MCV 89.0 fL 82.2-97.4 MCH 30.0 pg 27.6-33.3 MCHC 33.5 g/dL 33.0-35.5 RDW 14.2 % High 11.6-13.7 PLT 240 x10^3/UL 150-400 MPV 8.5 fL 7.4-10.4 Gran # 3.0 x10^3/UL 1.5-7.2 Lymph# 1.5 x10^3/UL 0.7-4.9 [place]# 0.2 x10^3/UL 0.1-0.9 Gran % 62.2 % 42.2-75.2 Lymph % 31.9 % 20.5-51.1 [place]% 5.9 % 1.7-9.3 Ua - Micro (Fma) 07/11/2015 [facility] Appearance clear (607)- - Color yellow Glucose, Urine (Fma/CMC/CTX) - Bilirubin - Ketones - SP Grav 1.020 Blood large # PH 6.5 Protein - Urobil 0.2 Nitrite - Leukocytes (Fma/CMC/[facility]) trace # Hyaline - /Lpf Granular - /Lpf WBC (Fma,[facility]) 1-3 RBC 20-30 # Mucus (Fma/CBC/[facility]) sm amt /Lpf Epith occ /Lpf Bacteria rare /Hpf Amorphous (Fma/CMC/[facility]) - /Lpf Crystals, Fluid (Fma/CMC/CTX) - Laboratory test finding 06/21/2014 [facility] Quickstrep neg Negative (607)- - Laboratory test finding 04/09/2014 [facility] Quickstrep NEGATIVE Negative (607)- - Throat - Beta Strep Fma NEG@48HRS Influenza A&B-a 04/09/2014 [facility] Influenza A NEGATIVE (607)- - Influenza B NEGATIVE Clotest 02/19/2014 [facility] Clotest (SEE NOTE) 9 Comprehensive Metabolic 08/18/2013 Peng Gloria([facility]) Sodium 143 mEq/L 134-149 Prof Potassium 4.0 mEq/L 3.6-5.5 Chloride 105 mEq/L 94-112 Carbon Dioxide 27 mEq/L 21-32 Glucose 95 mg/dL 70-105 BUN 16 mg/dL 6-26 Creatinine 0.8 mg/dL 0.6-1.4 BUN/Creat Ratio 20.0 CALC 8.0-36.0 Calcium 9.4 mg/dL 8.6-10.2 Total Protein 8.1 g/dL 6.3-8.1 Albumin 4.7 g/dL 3.8-5.5 Globulin 3.4 g/dL 2.0-4.8 A/G Ratio 1.4 CALC 0.6-2.3 Alk. Phosphatase 65 U/L 30-110 Alt (SGPT) 17 U/L 7-35 Ast (Sgot) 19 U/L 5-34 Total Bilirubin 0.4 mg/dL 0.2-1.3 Lipid Profile 08/18/2013 Peng Gloria([facility]) Cholesterol 269 mg/dL High 120-200 Triglycerides 181 mg/dL 30-200 HDL Cholesterol 56 mg/dL 30-85 LDL (Calculated) 177 CALC High 0-129 VLDL Cholesterol 36 mg/dL 0-50 HDL Risk Factor 4.8 CALC High 0.0-4.4 CBC Electronic (a) 08/18/2013 [facility] Medicine WBC 3.7 3.6-9.6 (607)- - RBC 4.34 3.90-5.70 Hemoglobin (Fma/CMC/CTX) 11.7 g/dL Low 12.1 - 17.2 Hematocrit (Fma/CMC/CTX) 35.2 % Low 36.1 - 50.3 Platelets 298 10^3/ul 150-400 Lymph% 37.5 % 17.0-48.0 Mixed% 5.9 Neutrophils % 56.6 Mean Corpuscular Vol 81 Low 82.2-97.4 Mean Corpuscular Hemoglobin 26.9 Low 27.6-33.3 Mean Corpuscular Hemo Concen 33.2 32.0-36.0 RDW 13.2 11.6-13.7 Mean Platelet Volume 8.2 5.5-11.0 Ua - Non Micro (Fma) 08/18/2013 [facility] Appearance CLEAR (607)- - Color YELLOW Glucose NEG Bilirubin NEG Ketones NEG SP Grav 1.025 Blood NEG PH 5.5 Protein NEG Urobil 0.2 Nitrite NEG Leukocytes (Fma/CMC/[facility]) NEG Laboratory test 08/09/2013 [facility] Thin Prep SEE [address] W/HPV(Lsil/SERGIO/Asc) [place] [address] [phone] Laboratory test 09/07/2012 Peng Gloria([facility]) Amylase 58 U/L 20- finding 105 Comprehensive 09/07/2012 Peng Gloria([facility]) Albumin 4.6 3.8 Metabolic Prof g/dL -5. 5 Alk. Phos. 62 U/L 30-110 Alt (SGPT) 29 U/L 7-35 Ast (Sgot) 30 U/L 5-34 BUN 14 mg/dL 6-26 Calcium 9.3 mg/dL 8.6-10.2 Chloride 100 mEq/L 94-112 Creatinine 0.8 mg/dL 0.6-1.4 Carbon Dioxide 24 mEq/L 21-32 Glucose 102 mg/dL 70-105 Sodium 137 mEq/L 134-149 Total Bilirubin 0.3 mg/dL 0.2-1.3 Total Protein 7.6 g/dL 6.3-8.1 Potassium 4.0 mEq/L 3.6-5.5 Globulin 3.0 g/dL 2.0-4.8 A/G Ratio 1.5 Calc 0.6-2.3 BUN/Creat Ratio 17.2 Calc 8.0-36.0 Hepatitis 09/07/2012 [facility] Hep B NON-REACTIVE Non-Reactive 11 Acute Panel [address] [place] [id number] Antigen [phone] Hep C Antibody NON-REACTIVE Non-Reactive Hep C S/Co Ratio 0.1 0.0-0.7 Hep B Core Antibody Igm NON-REACTIVE Non-Reactive Hep A Antibody Igm NON-REACTIVE Non-Reactive CBC Electronic ([facility]) 09/07/2012 [facility] WBC 3.0 Low 3.6-9.6 12 (607)- - RBC 4.68 3.90-5.70 Hemoglobin (Fma/CMC/CTX) 12.4 g/dL 12.1 - 17.2 Hematocrit (a/CMC/CTX) 38.2 % 36.1 - 50.3 Platelets 288 10^3/ul 150-400 Lymph% 45.1 20.5-51.1 Mixed% 6.1 Neutrophils % 48.8 Mean Corpuscular Vol 82 Low 82.2-97.4 Mean Corpuscular Hemoglobin 26.4 Low 27.6-33.3 Mean Corpuscular Hemo Concen 32.4 32.0-36.0 RDW 14.1 High 11.6-13.7 Mean Platelet Volume 7.4 6.5-11.0 Laboratory test 09/07/2012 [facility] Malaria Prep none seen finding (607)- - MMR Imm 07/07/2012 [facility] Rubella 150 IU/mL 13 [address] Antibodies, IgG [place], [place] [id number] [phone] Rubeola Ab, IgG, Eia 3.79 index High 0.00-0.90 14 Mumps Abs, IgG 3.23 index High 0.00-0.90 15 Laboratory test finding 12/10/2011 [facility] Quickstrep NEG Negative (607)- - Throat - Beta Strep Fma negative@48hrs Laboratory test 10/04/2011 [facility] Bordetella <SEE 16 finding Pertussis NOTE> CBC Electronic 09/09/2011 [facility] WBC 8.0 3.6-9 (a) (607)- - .6 RBC 4.96 3.90-5.70 Hemoglobin (Fma/CMC/CTX) 12.7 g/dL 12.1 - 17.2 Hematocrit (Fma/CMC/CTX) 41.3 % 36.1 - 50.3 Platelets 355 10^3/ul 150-400 Lymph% 33.6 20.5-51.1 Mixed% 6.1 Neutrophils % 60.3 Mean Corpuscular Vol 83 82.2-97.4 Mean Corpuscular Hemoglobin 25.5 Low 27.6-33.3 Mean Corpuscular Hemo Concen 30.7 Low 32.0-36.0 RDW 14.3 High 11.6-13.7 Mean Platelet Volume 7.5 6.5-11.0 Ua - Micro (Fma) 09/09/2011 [facility] Appearance CLEAR (607)- - Color YELLOW Glucose NEG Bilirubin NEG Ketones NEG SP Grav 1.015 Blood NEG PH 7.0 Protein NEG Urobil 0.2 Nitrite NEG Leukocytes (Fma/CMC/[facility]) TRACE # Hyaline - /Lpf Granular - /Lpf WBC (Fma,[facility]) 2-3 # RBC 0-1 # Mucus - /Lpf Epith OCC /Lpf # Bacteria RARE /Hpf # Amorphous - /Lpf Crystals, Fluid (Fma/CMC/CTX) - Z#Comments - Comprehensive Metabolic 09/09/2011 Peng Gloria(a) Albumin 4.5 g/dL 3.8-5.5 Prof Alk. Phos. 56 U/L 30-110 Alt (SGPT) 18 U/L 7-35 Ast (Sgot) 20 U/L 5-34 BUN 16 mg/dL 6-26 Calcium 9.6 mg/dL 8.6-10.2 Chloride 96 mEq/L 94-112 Creatinine 0.7 mg/dL 0.6-1.4 Carbon Dioxide 27 mEq/L 21-32 Glucose 88 mg/dL 70-105 Sodium 134 mEq/L 134-149 Total Bilirubin 0.4 mg/dL 0.2-1.3 Total Protein 7.9 g/dL 6.3-8.1 Potassium 4.1 mEq/L 3.6-5.5 Globulin 3.3 g/dL 2.0-4.8 A/G Ratio 1.4 Calc 0.6-2.2 BUN/Creat Ratio 22.3 Calc 8.0-36.0 Lipid Profile 09/09/2011 Peng Gloria([facility]ma) Cholesterol 240 mg/dL High 120-200 HDL 66 mg/dL 30-85 Triglycerides 104 mg/dL 30-200 HDL Risk Factor 3.6 CALC 0.0-4.0 LDL (Calculated) 153 CALC High 0-129 VLDL (Calculated) 21 mg/dL 0-50 Comp Metabolic Panel 04/25/2011 [facility] Sodium 135 mmol/L 135-145 Potassium 3.7 mmol/L 3.5-5.0 Chloride 104 mmol/L 101-111 Co2 (Carbon Dioxide) 27.0 mmol/L 22-32 Anion Gap 4.0 mmol/L 2-11 17 Glucose 92 mg/dL 70-100 BUN 18 mg/dL 6-24 Creatinine 0.6 mg/dL 0.50-1.40 One Over Creatinine 1.66 BUN/Creatinine Ratio 30.0 High 8-20 Calcium 8.9 mg/dL 8.1-9.9 Total Protein 7.2 GM/DL 6.2-8.1 Albumin 3.8 GM/DL 3.6-5.4 Globulin 3.4 GM/DL 2-4 Albumin/Globulin Ratio 1.1 1-3 Bilirubin Total 0.5 mg/dL 0.4-1.5 18 Alkaline Phosphatase 42 U/L 30-110 Alt (SGPT) 27 U/L 14-54 Ast (Sgot) 34 U/L 12-42 eGFR Non- 102.3 > 60 eGFR 131.6 > 60 19 Laboratory test finding 04[place]25[place]2011 [facility] [place] 0 NG/ML 0-0.06 20 CBC Auto Diff 04/25/2011 [facility] [place] Blood Count 8.6 CUMM 4.8-10.8 Red Cell Count 4.45 CUMM 4.2-5.4 Hemoglobin 11.1 g/dL Low 12.0-16.0 Hematocrit 34 % Low 35-47 Mean Corpuscular Volume 75 um3 Low 79-97 Mean Corpuscular Hemoglob 25 pg Low 27-31 Mean Corpuscular HGB Cone 33 g/dL 32-36 Redcell Distribution WDTH 18 % High 10.5-15 Platelet Count 253 CUMM 150-450 Mean Platelet Volume 8.6 um3 7.4-10.4 21 Manual Differential 04/25/2011 [facility] [place]segmented Neutrophil 81 % 38-83 Band Neutrophil 3 % 0-8 Lymphocyte 8 % Low 25-47 Monocyte 5 % 0-13 Basophil 3 % High 0-2 Absolute Neutrophil Count 7.2 Anisocytosis SLIGHT CBC ([facility]) 01/08/2010 [facility] [place] WBC 4.6 3.6-9.6 (607)- - RBC 4.32 3.90-5.70 Hemoglobin ([facility]/CTX) 12.0 g/dL Low 12.1 - 17.2 Hematocrit ([facility]ma/[facility]/CTX) 38.1 % 36.1 - 50.3 Mean Corpuscular Vol 88.2 82.2-97.4 Mean Corpuscular Hemaglobin 27.8 27.6-33.3 Mean Corpuscular Hemo Concen 31.5 Low 33.0-36.0 Platelets 277 10^3/ul 150-400 Lymph% 33.5 20.5-51.1 Mixed% 9.8 Neutrophils % 56.7 RDW 13.7 11.6-13.7 Mean Platelet Volume 10.7 High 7.4-10.4 Ua - Non Micro ([facility]) 01/08/2010 [facility] [place] Appearance CLEAR (607)- - Color YELLOW Glucose, Urine ([facility]ma/[facility]/CTX) NEG Bilirubin NEG Ketones NEG SP Grav 1.020 Blood NEG PH 7.0 Protein NEG Urobil 0.2EU/DL Nitrite NEG Leukocytes ([facility]) NEG Lipid Profile 01/08/2010 Peng Gloria(a) Cholesterol 209 mg/dL High 120-200 HDL 56 mg/dL 30-85 Triglycerides 123 mg/dL 30-200 HDL Risk Factor 3.7 CALC Low 4.2-7.0 LDL (Calculated) 129 CALC 0-129 VLDL (Calculated) 25 mg/dL 0-50 Comprehensive Metabolic 01/08/2010 Peng Gloria([facility]) Albumin 4.1 g/dL 3.8-5.5 Prof Alk. Phos. 36 U/L 30-110 Alt (SGPT) 15 U/L 7-35 Ast (Sgot) 20 U/L 5-34 BUN 19 mg/dL 6-26 Calcium 8.8 mg/dL 8.6-10.2 Chloride 102 mEq/L 94-112 Creatinine 0.6 mg/dL 0.6-1.4 Carbon Dioxide 25 mEq/L 21-32 Glucose 92 mg/dL 70-105 Sodium 141 mEq/L 134-149 Total Bilirubin 0.3 mg/dL 0.2-1.3 Total Protein 7.2 g/dL 6.3-8.1 Potassium 4.2 mEq/L 3.6-5.5 Globulin 3.1 g/dL 2.0-4.8 A/G Ratio 1.3 Calc 0.6-2.2 BUN/Creat Ratio 29.5 Calc 8.0-36.0 Laboratory test 01/08/2010 [facility] Thin Prep SEE NOTE 22 finding [address] [facility] [address] W/HPV(Lsil/SERGIO/Asc) [place], [place] [id number] [phone] Laboratory test 11/06/2009 [facility] LDH 164 U/L 20-1 finding [address] [facility] [address] [place] [address] [phone] Laboratory test 11/06/2009 [facility] Sed Rate 17 mm finding (607)- - (Fma/CMC/[facility]) CBC ([facility]) 11/06/2009 [facility] WBC 4.5 3.6- (607)- - 9.6 RBC 4.45 3.90-5.70 Hemoglobin (Fma/CMC/CTX) 12.8 g/dL 12.1 - 17.2 Hematocrit (Fma/CMC/CTX) 38.3 % 36.1 - 50.3 Mean Corpuscular Vol 86.1 82.2-97.4 Mean Corpuscular Hemaglobin 28.8 27.6-33.3 Mean Corpuscular Hemo Concen 33.4 33.0-36.0 Platelets 245 10^3/ul 150-400 Lymph% 40.8 20.5-51.1 Mixed% 6.9 Neutrophils % 52.3 RDW 14.9 High 11.6-13.7 Mean Platelet Volume 10.4 7.4-10.4 Laboratory test 11/06/2009 Peng Gloria([facility]) TSH 1.96 mIU/L 0.50-6.00 finding Comprehensive 11/06/2009 Peng Gloria([facility]) Albumin 4.2 g/dL 3.8-5.5 Metabolic Prof Alk. Phos. 45 U/L 30-110 Alt (SGPT) 13 U/L 7-35 Ast (Sgot) 20 U/L 5-34 BUN 19 mg/dL 6-26 Calcium 9.5 mg/dL 8.6-10.2 Chloride 100 mEq/L 94-112 Creatinine 0.7 mg/dL 0.6-1.4 Carbon Dioxide 28 mEq/L 21-32 Glucose 83 mg/dL 70-105 Sodium 144 mEq/L 134-149 Total Bilirubin 0.2 mg/dL 0.2-1.3 Total Protein 7.5 g/dL 6.3-8.1 Potassium 3.8 mEq/L 3.6-5.5 Globulin 3.2 g/dL 2.0-4.8 A/G Ratio 1.3 Calc 0.6-2.2 BUN/Creat Ratio 28.0 Calc 8.0-36.0 Laboratory test 11/06/2009 Peng Gloria([facility]) Creatine Kinase 89 U/L 26 -140 finding Ict Hemoccult 07/17/2009 [facility] Ict Hemoccult (1) 07/07/09 ([facility]) (607)- - NEG Ict Hemoccult-(2) 07/08/09 NEG Ict-Hemoccult (3) 07/09/09 NEG 1 SEE RESULT BELOW Name: MARILY PHAM : [address]: Neeta Riggs MD Acct: [id number] Unit: [id number] AGE: 66 Location: [place] [address] Re09/13/16 Dis: 09/15/16 SEX: F Status: DIS Mo SPEC: [id number] EMILY: 09/13/[address] [facility] [address]: Sven Whittaker MD REQ: [id number] RECD: 09/13/16 STATUS: COMP JEFF DR: Constance Lares MD _ SOURCE: BLOOD,VENO SPDESC: ORDERED: Blood Cult Procedure Result Reported Site Aerobic Culture Bottle Final 09/18/162246 ML No Growth Day Anaerobic Culture Bottle Final 09/18/162246 ML No Growth Day 5 * ML - MAIN LAB ([facility]) . END OF REPORT * ML=Testing performed at Main Lab DEPARTMENT OF PATHOLOGY, [address] [place] [address] Kurt Pitt M.D. Director [facility] # [id number] 2 Because ethnic data is not always readily [...] 15-29 5 Kidney failure <15 (or dialysis) 3 Acute inflammation: >10.00 4 99th percentile=0.04 ng/mL Troponin results at [facility] and [facility] are not interchangeable. 5 Acute inflammation: >10.00 6 [facility] Severe Sepsis and Septic Shock Management Bundle Measure requires all lactic acids initially measuring >2.0 mmol/L be repeated. 7 Because ethnic data is not always readily [...] 15-29 5 Kidney failure <15 (or dialysis) 8 RESULTS VERIFIED BY REPEAT ANALYSIS 9 RUN DATE: 02/20/14 [facility] LAB LIVE PAGE 1 RUN TIME: [address] [place] [address] Specimen Inquiry Name: MARILY PHAM : [address]: Douglas Puga MD Acct: [id number] Unit: [id number] AGE: 63 Location: ENDO Re02/19/14 SEX: F Status: REG REF SPEC: [id number] EMILY: 02/19/[address] [facility] [address]: Douglas Puga MD REQ: [id number] RECD: 02/19/141206 STATUS: JU AGUILAR DR: Andry De Santiago MD _ SOURCE: GAS ANTRUM SPDESC: ORDERED: Clotest Procedure Result Verified Site Clotest Final 02/20/14- 0837 ML Clotest Positive END OF REPORT * ML=Testing performed at Main Lab DEPARTMENT OF PATHOLOGY, [address] [place] [address] Kurt Pitt M.D. Director [facility] # [id number] 10 [facility] [employer] DEPARTMENT OF PATHOLOGY or Extension 8244 TRANSIT BUS OPERATOR CYTOLOGY REPORT Patient: MARILY PHAM : 1950 AGE: 62 Y SEX: F Acct: [id number] Procedure Date: 08/09/2013 Date Received: 08/13/2013 Requesting Provider: MIAN FULLER MD Location: [facility] Case No. [id number] Requisition #: [id number] CYTOLOGIC INTERPRETATION: SPECIMEN ADEQUACY SATISFACTORY FOR EVALUATION. THE PRESENCE OF TRANSFORMATION ZONE COMPONENT CANNOT BE DETERMINED DUE TO ATROPHIC CHANGES. GENERAL CATEGORIZATION NEGATIVE FOR INTRAEPITHELIAL LESIONS OR MALIGNANCY RECOMMENDATIONS Refer to the corresponding web sites for 2012 updated general recommendation guidelines of [place]. preventive service task force for cervical cancer screening, and www.asccp.org//cfhmahrqj6395. COMMENTS Thin Prep Pap tests are examined with an FDA approved location-guidance system. PATIENT DATA: SPECIMEN SUBMITTED: * * (HPVII) THIN PREP W/HPV (LSIL/ASC/SERGIO) * * ENDOCERVICAL RELEVANT HISTORY: Menarche: Y Prev.normal: 2009 Comment: POST MENOPAUSAL ADDITIONAL COPIES SENT TO: Screened/Rescreened Electronically Signed Sign Out Date/Time: by: by: DISHA CUADRA(ASCP) 08/13/2013 12:07 Note: The Pap smear is a screening test designed to aid in the detection of premalignant and malignant conditions of the uterine cervix. It is not a diagnostic procedure and should not be used as the sole means of detecting cervical cancer. Both false-positive and false-negative reports do occur. 00 UA Pap Smear performed at [employer] Dir: Chrissie Womack MD, [address] [place] [address] 01 entry clerk [facility]anna [place] Dir: Roe Barnes MD, [address] [facility] [address] 02 BN Lab [facility]anna [place] Dir: Florentino Matias MD, [address] [facility] [address] For inquiries regarding HPV test results, the physician may contact Lab Adrianna: [phone] . 11 RESULTS KYREE'D 13 Non-immune <5 Equivocal 5 - 9 Immune >9 14 Negative <0.91 Equivocal 0.91 - 1.09 Positive >1.09 . Presence of antibodies to Rubeola is presumptive evidence of immunity except when active infection is suspected. 15 Negative <0.91 Equivocal 0.91 - 1.09 Positive >1.09 Presence of antibodies to Mumps is presumptive evidence of immunity except when active infection is suspected. 16 RUN DATE: 10/07/11 [facility] NMI LIVE PAGE 1 RUN TIME: 1041 Specimen Inquiry RUN USER: INTERFACE Name: ANAYELI PHAMMANOJVITALY Status: REG REF Re10/04/11 Age/Sex: 61/F Unit#: [id number] Location: [facility] : [birth year] SPEC #: [id number] EMILY: 10/04/11 STATUS: COMP REQ #: [id number] RECD: 10/04/[address] [facility] [address]: Jessica BILLY,Mian Smiley SOURCE: NASOPHARYN ENTR: 10/04/[address]: JOSEPH: ORDERED: PERTUSSIS ARGYLE QUERIES: MEDENT REQUISITION # [id number] ACT WKST: SO 10/07/11 #1 Procedure Result Verified Site > BORDETELLA PERTUSSIS Final 10/07/11- 1041 ML BORDETELLA BY RAPID PCR Negative for Bordetella pertussis/parapertussis DNA Laboratory developed test. Test performed by: [facility] [employer] [address] [place] [address] - [facility] State Permit #[id number] [address] [place] [address] DEPARTMENT OF PATHOLOGY, [address] [place] [address] [facility] Permit #[id number] Kurt Pitt M.D. Director Angie Hidalgo M.D. Budget Record Clerk 17 Anion gap measurement may be of limited value in the presence of any alkalosis, especially in a combined acid base disorder. . 18 A metabolite of Naproxen, O-desmethylnaproxen, has been shown to interfere with the Jendrassik-Truxton method for measuring total bilirubin. Samples from patients who have taken Naproxen have shown spurious elevation in total bilirubin levels. 19 Because ethnic data is not always readily [...] 15-29 5 Kidney failure <15 (or dialysis) 20 New Reference Range and Interpretation effective 01/26/2002 TnI (ng/ml) INTERPRETATION Less Than 0.06 ng/mL NOT SUPPORTIVE OF DIAGNOSIS OF [place] 0.06 - 0.50 ng/ml INDETERMINATE: SUGGEST SERIAL STUDIES IF CLINICALLY INDICATED. Greater than 0.5 ng/mL CONSISTENT WITH DIAGNOSIS OF [place] . 21 Lymphopenia % 1+ Anisocytosis 22 [employer] DEPARTMENT OF PATHOLOGY or Extension 8228 TRANSIT BUS OPERATOR CYTOLOGY REPORT PATIENT: MARILY PHAM : 1950 AGE: 59 Y SEX: F ACCT: [id number] PROCEDURE DATE: 01/08/2010 DATE RECEIVED: 01/09/2010 REQUESTING PHYSICIAN: MIAN FULLER MD LOCATION: [facility] Case No. [id number] PATIENT DATA: [id number] SPECIMEN SUBMITTED: * * (HPVII) THIN PREP W/HPV (LSIL/ASC/SERGIO) * * CERVICAL RELEVANT HISTORY: Menopause: Y SPECIMEN ADEQUACY SATISFACTORY FOR EVALUATION. THE PRESENCE OF TRANSFORMATION ZONE COMPONENT CANNOT BE DETERMINED DUE TO ATROPHIC CHANGES. GENERAL CATEGORIZATION NEGATIVE FOR INTRAEPITHELIAL LESIONS OR MALIGNANCY ADDITIONAL COPIES SENT TO: Screened/Rescreened Electronically Signed Sign Out Date/Time: by: by: ZACH COWAN, 01/12/2010 12:50 CT(ASCP) Thin Prep Pap tests are examined with an FDA-approved location-guidance system (32500). Performed @ [employer] [address] [place] [address] Procedures Date Code Description Status 11/14/2017 09068 Dxa Bone Density Study One Or More Sites Axial Completed Skeleton 10/03/2017 27680009 Mammogram Completed 09/29/2017 76194629 Mammogram Completed 01/19/2017 17171 Electrocardiogram Complete Completed 09/30/2016 08674941 Mammogram Completed 09/09/2015 59704626 Mammogram Completed 09/06/2014 74270722 Mammogram Completed 02/19/2014 97702435 Colonoscopy Completed 08/31/2013 340614742 Bone Mineral Density Test Completed 08/31/2013 18986464 Mammogram Completed 08/31/2013 61315 Dxa Bone Density Study One Or More Sites Axial Completed Skeleton 08/31/2013 68507 Dxa Bone Density Vertebarl FX Assessment Completed 09/21/2011 12524467 Mammogram Completed 06/24/2011 99351 Pulse Oximetry Completed 04/30/2010 20383 Electrocardiogram Complete Completed 04/20/2010 96308 Electrocardiogram Complete Completed 02/06/2010 55737350 Mammogram Completed 01/29/2010 07320150 Mammogram Completed 10/16/2009 42698 Pulse Oximetry Completed 06/25/2009 33309 Spirometry Completed 06/25/2009 85209 Nebulizer Treatment Completed Encounters Type Date Location Provider Dx Diagnosis Office Visit 04/19/2018 [facility] Office Constance Lares, K64.9 Unspecified 8:40a M.D. hemorrhoids Office Visit 10/03/2017 Main Office Constance Lares, J02.9 Acute pharyngitis, 12:50p M.D. unspecified Office Visit 05/03/2017 [facility] Office Constance Lares, B37.0 Candidal stomatitis 9:40a M.D. I10 Essential (primary) hypertension H92.03 Otalgia, bilateral L72.3 Sebaceous cyst Office Visit 01/19/2017 10:00a [facility] Office Constance Lares, R07.89 Other chest M.D. pain J06.9 Acute upper respiratory infection, unspecified I10 Essential (primary) hypertension F32.0 Major depressive disorder, single episode, mild J45.40 Moderate persistent asthma, uncomplicated Office Visit 09/15/2016 [facility] Constance Lares, T78.3xxA Angioneurotic 3:20p Office M.D. edema, initial encounter L50.0 Allergic urticaria F32.0 Major depressive disorder, single episode, mild I10 Essential (primary) hypertension Office Visit 05/19/2016 9:15a [facility] Kari R50.9 Fever, Brian, HOSE SEAMER unspecified R05 Cough Office Visit 12/02/2015 10:00a Main Office Pushpa Vargas, H81.10 Benign paroxysmal Afnp-C vertigo, unspecified ear G44.209 Tension-type headache, unspecified, not intractable Office Visit 10/03/2015 9:15a Main Office Jenny Dumont HOSE SEAMER R05 Cough H60.8x3 Other otitis externa, bilateral Office Visit 07/10/2015 5:50p Main Office Constance Lares, Z00.00 Encntr for general M.D. adult medical exam w/o abnormal findings I10 Essential (primary) hypertension J45.40 Moderate persistent asthma, uncomplicated Z12.11 Encounter for screening for malignant neoplasm of colon Z12.31 Encntr screen mammogram for malignant neoplasm of breast F32.0 Major depressive disorder, single episode, mild R31.2 Other microscopic hematuria Office Visit 03/12/2015 2:20p Main Office Andry De Santiago M.D. Z23 Encounter for immunization F32.0 Major depressive disorder, single episode, mild Office Visit 12/19/2014 4:00p [facility] Jenny Dumont, 380.10 Otitis Externa HOSE SEAMER Infective Unspec 477.9 Rhinitis Allergic Cause Unspec Office Visit 11/30/2014 9:45a Main Office Andry De Santiago, 381.4 Otitis Media Acute M.D. Or Chronic Nonsuppurative Office Visit 06/21/2014 2:20p [facility] Andry De Santiago 465.9 URI Upper MMelinaDMelina Respiratory Infections Acute Unspec Sites Office Visit 04/09/2014 3:20p [facility] Bianca Acosta 465.9 URI Upper Chris Rizzo Respiratory Infections Acute Unspec Sites Office Visit 02/27/2014 7:00p Main Office Andry De Santiago, 401.9 Hypertension Unspec M.D. 733.00 Osteoporosis Unspec 493.10 Asthma Intrinsic Unspecified 530.81 Esophageal Reflux v04.81 Need For Prophylactic Vaccination & Inoculation/Influenza Office Visit 09/13/2013 5:00p Main Office Mian Smiley 401.9 Hypertension Unspec Chris Fuller 715.16 Osteoarthrosis Localized Prim Lower Leg 733.00 Osteoporosis Unspec 493.10 Asthma Intrinsic Unspecified 530.81 Esophageal Reflux 780.94 Early Satiety V65.8 Consultation Other Reason For Seeking Office Visit 08/09/2013 5:00p Main Office Mian Smiley V70.0 Examination General Chris Fuller Medical Routine AT Health Care Facility V76.10 Screening For Malignant Neoplasm Breast V76.51 Screening For Malignant Neoplasms Colon V49.81 Postmenopausal Status Asymptomatic (Age-Related,Natural) 715.16 Osteoarthrosis Localized Prim Lower Leg 733.00 Osteoporosis Unspec 493.10 Asthma Intrinsic Unspecified 530.81 Esophageal Reflux 401.9 Hypertension Unspec 780.94 Early Satiety V76.41 Screening Malignant Neoplasm Rectum Office Visit 06/07/2013 7:00p Main Office Mian Smiley V72.83 Examination Chris Fuller Preoperative Other Spec V72.84 Examination Preoperative Unspec 366.9 Cataract Unspec 493.10 Asthma Intrinsic Unspecified 530.81 Esophageal Reflux 715.16 Osteoarthrosis Localized Prim Lower Leg 733.00 Osteoporosis Unspec Office Visit 05/21/2013 6:30p Main Office Alissa Rai, 466.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 Office Visit 02/15/2013 6:40p Main Office Mian Smiley 715.16 Osteoarthrosis Chris Fuller Localized Prim Lower Leg 493.10 Asthma Intrinsic Unspecified 530.81 Esophageal Reflux 733.00 Osteoporosis Unspec 311 Depressive Disorder Not Elsewhere Spec Office Visit 09/06/2012 1:50p Main Office Mian Fuller, 789.00 Pain Abdominal M.Cornelius Unspec Site 787.02 Nausea Alone Office Visit 07/07/2012 4:15p Main Office Jenny Dumont, V65.8 Consultation Other HOSE SEAMER Reason For Seeking V73.99 Screening Examination Viral Disease Unspec v05.3 Viral Hepatitis Vaccination & Inoculation Office Visit 04/10/2012 8:10a [facility] Mian Smiley 813.20 FX Radius & Ulna Office Chris Fuller Shaft Unspec Closed Office Visit 02/24/2012 6:00p Main Office Mian Smiley 715.16 Osteoarthrosis Chris Fuller Localized Prim Lower Leg Office Visit 02/14/2012 4:20p Eriberto Smiley 719.46 Pain Joint Lower Leg Office Chris Fuller Office Visit 12/10/2011 8:40a Eriberto Smiley 465.9 URI Upper Office Chris Fuller Respiratory Infections Acute Unspec Sites 493.10 Asthma Intrinsic Unspecified 477.9 Rhinitis Allergic Cause Unspec 692.9 Eczema NOS, Contact Dermatitis NOS Office Visit 10/08/2011 10:30a [facility] Mian Smiley 465.9 URI Laura Fuller M.D. Respiratory Infections Acute Unspec Sites 733.00 Osteoporosis Unspec Office Visit 10/04/2011 3:30p [facility] Office Mian Smiley 465.9 MARIAM Fuller M.D. Respiratory Infections Acute Unspec Sites Office Visit 09/06/2011 3:00p [facility] Mian Smiley 709.9 Skin & Chris Fuller Subcutaneous Tissue Disorders Unspec Office Visit 06/24/2011 7:40p Main Office Alonso A. 300.00 Anxiety State Chrsi Fuller Unspec 493.10 Asthma Intrinsic Unspecified 511.0 Pleurisy W/O Mention Of Effusion Or Current Tuberculosis 530.81 Esophageal Reflux Office Visit 06/18/2011 4:00p Main Office Meño Veronica 465.9 URI Laura Florentino M.D. Respiratory Infections Acute Unspec Sites 511.0 Pleurisy W/O Mention Of Effusion Or Current Tuberculosis Office Visit 04/28/2011 8:20a [facility] Mian Smiley 386.10 Vertigo Chris Fuller Peripheral Unspec 564.00 Constipation Unspecified Office Visit 04/08/2011 5:00p Main Office Mian Smiley V70.0 Examination General Chris Fuller Medical Routine AT Health Care Facility V77.91 Screening For Lipoid Disorders V76.10 Screening For Malignant Neoplasm Breast V76.51 Screening For Malignant Neoplasms Colon 733.00 Osteoporosis Unspec 493.10 Asthma Intrinsic Unspecified 300.00 Anxiety State Unspec 786.50 Pain Chest Unspec Office Visit 01/11/2011 8:10a [facility] Mian Smiley 733.00 Osteoporosis Chris Fuller Unspec 493.10 Asthma Intrinsic Unspecified 300.00 Anxiety State Unspec 715.09 Osteoarthrosis Generalized Multiple Sites v04.81 Need For Prophylactic Vaccination & Inoculation/Influenza Office Visit 09/17/2010 6:00p Main Office Mian Smiley 715.09 Osteoarthrosis Chris Fuller Generalized Multiple Sites Office Visit 07/24/2010 2:30p Main Office Mian Smiley V74.1 Screening Chris Fuller Examination Pulmonary Tuberculosis Office Visit 07/08/2010 8:00a [facility] Mian Smiley 715.09 Osteoarthrosis Office Chris Fuller Generalized Multiple Sites 493.10 Asthma Intrinsic Unspecified 300.00 Anxiety State Unspec 780.57 Unspecified Sleep Apnea Office Visit 06/27/2010 11:20a Main Office Mian Fuller, 461.0 Sinusitis Acute M.D. Maxillary 112.9 Candidiasis Unspec Site Office Visit 05/06/2010 2:20p [facility] Mian Smiley 530.81 Esophageal Reflux Chris Fuller Office Visit 04/30/2010 8:20p Main Office Mian Smiley 786.50 Pain Chest Unspec Chris Fuller 786.52 Painful Respiration Office Visit 04/20/2010 11:00a Main Office Meño Veronica 786.52 Painful Respiration Chris Florentino Office Visit 03/25/2010 7:20p Main Office Meño Veronica 528.5 Oral Soft Tissue Chris Florentino Excluding Gingiva & Tongue Lip Diseases Office Visit 01/08/2010 8:10a Main Office Mian Smiley V70.0 Examination General Chris Fuller Medical Routine AT Health Care Facility V76.2 Screening Malignant Neoplasm Cervix V76.51 Screening For Malignant Neoplasms Colon V76.10 Screening For Malignant Neoplasm Breast V77.91 Screening For Lipoid Disorders 465.9 URI Upper Respiratory Infections Acute Unspec Sites 733.90 Bone & Cartilage Disorder Unspec V06.5 Tetanus Diphtheria (DT) v06.5 Tetanus Diphtheria (DT) 780.50 Sleep Disturbance Unspec Office Visit 12/11/2009 5:00p Main Office Mian Fuller 724.2 Lumbago Chris Office Visit 11/20/2009 7:20p Main Office Mian Fuller 729.1 Myalgia & Myositis Chris Unspec 786.2 Cough Office Visit 11/06/2009 6:00p Main Office Mian Fuller M.D. 786.2 Cough 729.1 Myalgia & Myositis Unspec Office Visit 10/22/2009 8:40a [facility] Mian Smiley 465.9 URI Upper Office Chris Fuller Respiratory Infections Acute Unspec Sites Office Visit 10/16/2009 7:30p Main Office Maurisio Smiley 460 Nasopharyngitis Ki Tovar M.D. Office Visit 09/10/2009 7:20p Main Office Mian Smiley 465.9 URI Upper Chris Fuller Respiratory Infections Acute Unspec Sites 493.10 Asthma Intrinsic Unspecified Office Visit 08/06/2009 9:20a [facility] Mian Smiley 709.9 Skin & Subcutaneous Chris Fuller Tissue Disorders Unspec Office Visit 07/28/2009 8:30a [facility] Mian Smiley 70Jesse.9 Skin & Subcutaneous Chris Fuller Tissue Disorders Unspec Office Visit 07/03/2009 5:40p Main Office Mian Smiley 723.4 Cervical Chris Fuller Radiculopathy 493.10 Asthma Intrinsic Unspecified 300.00 Anxiety State Unspec 564.00 Constipation Unspecified Office Visit 06/12/2009 7:30p Main Office Mian Fuller, 786.05 Shortness Of M.D. Breath 374.44 Sensory Disorder 300.00 Anxiety State Unspec 493.10 Asthma Intrinsic Unspecified Office Visit 06/05/2009 7:10p Main Office Mian Fuller, 786.50 Pain Chest Unspec M.D. 786.05 Shortness Of Breath V03.82 Streptococcus Pneumoniae Vaccination Spec Other Plan of Treatment Future Appointment(s):10/24/2018 3:50 pm - Constance Lares M.D. at [facility] Cqelii1908/24/2018 - Constance Lares M.D.Z01.818 Encounter for other preprocedural examinationComments:Cleared for surgery pending PAT. Will fax note to ordering physician. HOLD NSAIDS and supplements 7 days prior to jweyzcqC78.12 Unilateral primary osteoarthritis, left kneeComments:ok for Tylenol, not allergic and tolerating wellI10 Essential (primary) hypertensionComments:The patient will continue to monitor blood pressure and let me know the blood pressure results if there are readings persistently above 140/90. Goal blood pressure is less than 130/80. Recommend low salt/cardiac diet such as the Mediterranean diet and routine exercise at least 30 minutes a day.Follow up:cpe fallM81.0 Age-related osteoporosis without current pathological fractureComments:Encourage 1200 units of calcium and 1000 units of vitamin D daily with weight bearing tlkdeqbiL13.0 Major depressive disorder, single episode, mildComments:stable on mvkgaueK85.40 Moderate persistent asthma, uncomplicatedComments:stable on regimen ; hx of multiple drug xjmjoxgS34.31 Encounter for screening mammogram for malignant neoplasm of breastNew Xrays:Mammography Screening, Bilateral; 2-View Each Breast , Ordered: 08/24/18Comments:refer for mammogramAllNew Medication:Sertraline HCL 50 mg - 1 by mouth every dayComments:Medication Management Patient Understands medications she's taking? Yes No Are there Barriers to Adherence? Yes No Has the patient been asked about herbal supplements and therapies, and OTC meds? Yes No
--- OUTSIDE RECORDS SUMMARY | 2018-09-11 09:56 | XMS REPORT | Continuity of Care Document ---
:1950 External Reference #:[id number] Author Name Jane Hook Care Team Providers Name Role Phone Constance Lares MD Primary Care Physician Unavailable Payers Date Identification Numbers Payment Provider Subscriber Policy Number: [id number] Medicare Marily Pham PayID: [id number] [address] [place] [address] Effective: 2015 Policy Number: [id number] Medicare Htago Pham Expires: 2018 PayID: [id number] [address] [facility] [place] [address] Effective: 2015 Policy Number: [place]/Totalcare Medicaid Marily Pham [id number] Expires: 2015 PayID: [id number] [address] [address] [place] [address] Effective: 2011 Policy Number: [place] Essential Htago Pham [id number] Expires: 2014 PayID: [id number] [address] [address] [place] [address] Effective: 2015 Policy Number: [id number] Medicaid Marily Pham Group Name: 1 1 [address] PayID: [id number] [place] [address] Advance Directives Description No Information Available Problems [...] Aspirin hives 09/20/2012 Shellfish-derived Products hives 09/20/2012 [place] hives 09/20/2012 Medications Active Medications SIG Qnty [...] po bid 12tabs Samir Prattino, 03/29/2012 - [id number] M.D. 07/18/2013 Tablets Ondansetron HCL one by [...] Morales M.D. 07/14/2016 Injection Depomedrol 40MG Samir Morales M.D. 03/17/2016 Injection Depomedrol 40MG Samir Morales M.D. 10/02/2015 Injection Celestone 3 mg and 3mg Samir Morales M.D. 05/29/2015 Injection Depomedrol 80MG Samir Morales M.D. 02/05/2015 Injection Depomedrol 80MG Samir Morales M.D. 09/18/2014 Injection Depomedrol 80MG ABHIJEET Grimes 06/05/2014 Injection Depomedrol 80MG Samir Morales M.D. 12/19/2013 Injection Depomedrol 80MG Samir Morales M.D. 12/19/2013 Injection Depomedrol 80MG Nolberto Che, 07/18/2013 Injection RPAVidaC Depomedrol 80MG Samir Morales M.D. 03/21/2013 Injection [...] Date Facility Test Result H/L Range Note Laboratory test 09/14/2016 [facility] SEE RESULT [address] [place] [address] [phone] CBC Auto Diff 09/20/2012 [facility] White Blood 6.1 10^3/uL 4.8-10.[address] [place] [address] [phone] Red Blood Count 4.78 10^6/uL 4.0-5.4 Hemoglobin [...] Blood Cells % 0.1 Laboratory test 09/20/2012 [facility] C Reactive < 0.5 mg/dL Less than finding [address] Protein 0.5 [place] [address] [phone] Malaria Prep 09/20/2012 [facility] RBC Parasite No Parasites No Parasite [address] Smear See <[place] [address] NOTE> [phone] Blood Smear Pathologist Review Kurt Nicholas <SEE NOTE> 3 1 SEE RESULT BELOW Name: MARILY PHAM : [address]: Neeta Riggs MD Acct: [id number] Unit: [id number] AGE: 66 Location: [place] [address] Re09/13/16 Dis: 09/15/16 SEX: F Status: DIS Mo SPEC: [id number] EMILY: 09/14/[address] [facility] [address]: Loco Karimi MD REQ: [id number] RECD: 09/14/16 STATUS: SOUT _ ORDERED: LEVEL 4, DIF-FIRST [...] performed at Main Lab DEPARTMENT OF PATHOLOGY, [address] [place] [address] Kurt Pitt M.D. Director [facility] # [id number] RUN DATE: 09/15/16 [facility] LIVE PAGE 2 Patient: MARILY PHAM [id number] (Continued) MICROSCOPIC DESCRIPTION (Continued) MICROSCOPIC DESCRIPTION Histologic [...] performed at Main Lab DEPARTMENT OF PATHOLOGY, [address] [place] [address] Kurt Pitt M.D. Director [facility] # [id number] 2 No Parasites Seen 3 Kurt Pitt Procedures Date Code Description Status 06/15/2018 97254 Hemorrhoidectomy, Internal, By Rubber Band Ligation(S) Completed 06/01/2018 86229 Hemorrhoidectomy, Internal, By Rubber Band Ligation(S) Completed 04/12/201810037 Inject/Drain Joint/Bursa Major W/O US Completed 11/30/201772268 Inject/Drain Joint/Bursa Major W/O US Completed 07/27/201704320 Inject/Drain Joint/Bursa Major W/O US Completed 03/23/201795645 Inject/Drain Joint/Bursa Major W/O US Completed 11/17/201670044 Inject/Drain Joint/Bursa Major W/O US Completed 09/14/2016 26909 Each Additional Biopsy Completed 09/14/2016 63068 Biopsy Skin Lesion Single Completed 09/09/2016 91269 EKG, Interpretation Only Completed 07/14/201614584 Inject/Drain Joint/Bursa Major W/O US Completed 03/17/201686754 Inject/Drain Joint/Bursa Major W/O US Completed 10/02/201513487 Inject/Drain Joint/Bursa Major W/O US Completed 05/29/2015 95508 Inject/Drain Joint/Bursa Major W/O US Completed 02/05/201596054 Inject/Drain Joint/Bursa Major W/O US Completed 09/18/201473186 Inject/Drain Joint/Bursa Major W/O US Completed 06/05/201447498 Inject/Drain Joint/Bursa Major W/O US Completed 12/19/2013 55530 Rad Exam; Spine Cerv Comp Completed 12/19/2013 23632 Rad Exam; Spine, Cervical Completed 12/19/201369528 Inject/Drain Joint/Bursa Major W/O US Completed 07/18/2013 19952 Xray Knee 3 Views Completed 07/18/2013 51223 Rad Exam; Knee, Ap&L Completed 07/18/201341274 Inject/Drain Joint/Bursa Major W/O US Completed 03/21/201365895 Inject/Drain Joint/Bursa Major W/O US Completed 03/29/2012 95733 Xray Knee 3 Views Completed 03/29/2012 75325 Xray Knee 3 Views Completed 03/29/2012 75157 Rad Exam; Knee, Ap&L Completed 03/29/2012 07983 Rad Exam; Knee, Ap&L Completed Encounters Type Date Location Provider Dx Diagnosis Office Visit 06/01/2018 Surgical Loco Damonjluis, K64.2 Third degree 2:15p [facility], VERO hemorrhoids Office Visit 04/12/2018 Orthopedic Samir Prattino, M17.12 Unilateral primary 8:00a [facility] osteoarthritis, left knee Office Visit 11/30/2017 Orthopedic Samir Andrew, M17.12 Unilateral primary 9:30a [facility] osteoarthritis, left knee Office Visit 03/23/2017 Orthopedic Samir Andrew, M54.16 Radiculopathy, 9:45a [facility] lumbar region M17.12 Unilateral primary osteoarthritis, left knee M54.16 Radiculopathy, lumbar region Office Visit 09/15/2016 9:43a [facility] Husam Shields R21 Rash and other Infectious Chris Bradley nonspecific skin Diseases eruption T78.3xxA Angioneurotic edema, initial encounter Z83.1 Family history of other infectious and parasitic diseases Office Visit 09/15/2016 [facility] Orlin L50.8 Other 3:38p Assoc,pc DEBRA Momin urticaria Hospitalists J45.909 Unspecified asthma, uncomplicated I10 Essential (primary) hypertension Office Visit 09/13/2016 3:37p [facility] Arsalan L50.8 Other urticaria Assoc,pc Casey NRica Hospitalists J45.909 Unspecified asthma, uncomplicated I10 Essential (primary) hypertension Office Visit 09/12/2016 [facility] Ed T78.3xxD Angioneurotic 2:26p Assoc,pc Chris Mccrary edema, subsequent Hospitalists encounter I10 Essential (primary) hypertension E78.5 Hyperlipidemia, unspecified J45.909 Unspecified asthma, uncomplicated Office Visit 09/11/2016 [facility] Roya T78.3xxD Angioneurotic 2:25p Assoc,pc Sarita Johnson edema, subsequent Hospitalists encounter I10 Essential (primary) hypertension E78.5 Hyperlipidemia, unspecified J45.909 Unspecified asthma, uncomplicated Office Visit 09/10/2016 [facility] Roya T78.3xxD Angioneurotic 2:25p Assoc,neha Johnson D.O. edema, subsequent Hospitalists encounter I10 Essential (primary) hypertension E78.5 Hyperlipidemia, unspecified J45.909 Unspecified asthma, uncomplicated [facility] T78.3xxD Angioneurotic Visit 2:24p Assoc,neha MORALES M.D. [...] Lower Leg Office Visit 04/19/2014 Neurosurgery Bhargav J. 723.0 Stenosis Spinal 1:00p [facility] Soriano M.D. Cervical Region Office Visit 03/20/2014 Orthopedic Barbara 719.41 Pain Joint Shoulder 10:30a [facility] Of ABHIJEET Lopez Region C.M.A. Office Visit 12/19/2013 Lyle Dawson 723.4 Brachial Neuritis Or 8:30a [facility] Chris Morales Radiculitis NOS C.M.A. 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 YANELYC Localized Lower Leg Office Visit 05/16/2013 Orthopedic Nolberto Fierro 715.96 Osteoarthrosis 9:30a [facility] Yane Unspec Genlzd Or C.M.A. LINDEN-C Localized Lower Leg Office Visit 03/21/2013 Orthopedic Shreyas [place].96 Osteoarthrosis 2:30p [facility] Chris Unspec Genlzd Or C.M.A. Localized Lower Leg Office Visit 01/18/2013 Orthopedic Samir Morales, 715.96 Osteoarthrosis 4:30p Services [facility] Chris Unspec Genlzd Or C.M.A. Localized Lower Leg Office Visit 12/21/2012 Orthopedic Samir Morales, 715.96 Osteoarthrosis 4:30p [facility] Chris Amaya Genlzd Or C.M.A. Localized Lower Leg Office Visit 09/20/2012 [facility] Husam Shields 780.60 Fever, Unspecified 1:20p For Infectious Chris Bradley Diseases Office Visit 09/06/2012 Orthopedic Samir Morales, 715.96 Osteoarthrosis 8:30a [facility] Chris Amaya Genlzd Or C.M.A. Localized Lower Leg 719.46 Pain Joint Lower Leg Office Visit 06/08/2012 Lyle Dawson 715.96 Osteoarthrosis 8:30a [facility] Chris Morales Genlzd Or C.M.A. Localized Lower Leg Office Visit 03/29/2012 Lyle Dawson 715.96 Osteoarthrosis 8:00a [facility] Morales Genlzd Or C.M.A. Localized Lower Leg Plan of Treatment 08/16/2018 - Samir Morales M.D.M17.12 Unilateral primary osteoarthritis, left kneeFollow up:4 weeks after surgery
[2018-09-11] MEDS ORDERED: Dexamethasone IV* 4 MG/ML 1 ML (4 MG) ONE (10:12)
[2018-09-11] MEDS ORDERED: Acetaminophen TAB* 325 MG ONE (10:13)
[2018-09-11] MEDS ORDERED: celeCOXIB CAP* 100 MG ONE (10:13)
[2018-09-11] MEDS ORDERED: Gabapentin CAP(*) 300 MG ONE (10:13)
[2018-09-11] MEDS ORDERED: Famotidine TAB* 20 MG ONE (10:13)
[2018-09-11] MEDS ORDERED: ceFAZolin 2 GM PREMIX in ORs 2 GM/50 ML BAG IVPB ONE (10:13)
[2018-09-11] MEDS ORDERED: fentaNYL* 50 MCG/ML 2 ML VIAL (100 MCG VIAL) ONE (10:59)
[2018-09-11] MEDS ORDERED: Midazolam* 1 MG/ML 2 ML VIAL (2 MG) ONE (10:59)
[2018-09-11] MEDS ORDERED: Lidocaine 1% MPF wEPI 200,000* 30 ML SDV ONE (11:44)
[2018-09-11] MEDS ORDERED: Lidocaine 1% INJ* 10 MG/ML 30 ML SDV ONE (11:44)
[2018-09-11] MEDS ORDERED: Bupivacaine 0.5% W/EPI SDV* 30 ML VIAL ONE (11:44)
[2018-09-11] MEDS ORDERED: Bupivacaine 0.5%* 50 ML VIAL ONE (11:45)
[2018-09-11] MEDS ORDERED: Lidocaine 1%* 5 ML VIAL ONE (11:57)
[2018-09-11] MEDS ORDERED: ROPIVACAINE 5 MG/ML 30 ML BTL (0.5%) ONE (11:57)
[2018-09-11] MEDS ORDERED: Propofol* 10 MG/ML 20 ML BTL ONE (12:50)
[2018-09-11] MEDS ORDERED: KETAMINE HCL* 50 MG/ML 10 ML VIAL ONE (12:55)
[2018-09-11] MEDS ORDERED: Bupivacaine 0.25% W/EPI* 10 ML SDV ONE ×2 (13:02→13:18)
[2018-09-11] MEDS ORDERED: DiMENhydriNATE IV* 50 MG/ML VIAL IV PUSH PRN (13:45)
[2018-09-11] MEDS ORDERED: Ondansetron INJ* 2 MG/ML VIAL IV PRN ×2 (13:45→14:37)
[2018-09-11] MEDS ORDERED: Naloxone* 0.4 MG/ML 1 ML VIAL IV PRN (13:45)
[2018-09-11] MEDS ORDERED: HYDROmorphone INJ1* 1 MG/ML SYRINGE IV PRN (13:45)
[2018-09-11] MEDS ORDERED: fentaNYL* 50 MCG/ML 2 ML VIAL (100 MCG VIAL) IV PRN (13:45)
[2018-09-11] MEDS ORDERED: Ketorolac INJ* 30 MG/ML 1 ML VIAL IV PRN (13:45)
[2018-09-11] MEDS ORDERED: oxyCODONE/Acetamin 5/325 MG* TAB PO PRN (13:45)
[2018-09-11] MEDS ORDERED: Acetaminophen TAB* 325 MG PO PRN (13:45)
[2018-09-11] MEDS ORDERED: Magnesium Hydroxide LIQ* 30 ML UDC PO PRN (14:31)
[2018-09-11] MEDS ORDERED: Bisacodyl SUPP* 10 MG SUPP PR PRN (14:37)
[2018-09-11] MEDS ORDERED: diPHENhydraMINE PO* 25 MG PO PRN (14:37)
[2018-09-11] MEDS ORDERED: diPHENhydraMINE IV* 50 MG/ML 1 ml VIAL (BENADRYL) IV PRN (14:37)
[2018-09-11] MEDS ORDERED: Cyclobenzaprine TAB* 10 MG PO PRN (14:37)
[2018-09-11] MEDS ORDERED: Morphine INJ* 2 MG/ML 1 ML SYRINGE (TWO MG - NEW SYRINGE VERSION) IV PRN (14:37)
[2018-09-11] MEDS ORDERED: Ondansetron ODT TAB* 4 MG PO PRN (14:37)
[2018-09-11] MEDS ORDERED: Fluticasone NASAL SPRAY 50MCG* 16 gm SPRAY BTL BOTH NARES PRN (14:45)
[2018-09-11] MEDS ORDERED: Betamethasone Dip 0.05% ON(NF) 45 GM TUBE PRN (14:45)
[2018-09-11] MEDS ORDERED: EPINEPHrine PEN ADULT(NF) 0.3 MG SYRINGE IM PRN (14:45)
[2018-09-11] MEDS ORDERED: Albuterol HFA INHALER* 8 gm MDI INH PRN (14:45)
[2018-09-11] MEDS ORDERED: MENTHOL TOPICAL PRN (14:45)
[2018-09-11] MEDS ORDERED: CAMPHOR TOPICAL PRN (14:45)
[2018-09-11] MEDS ORDERED: Clobetasol 0.05% OINT* 30 GM TUBE TOPICAL PRN (14:45)
[2018-09-11] MEDS ORDERED: traMADol TAB* 50 MG PO SCH (15:00)
[2018-09-11] MEDS ORDERED: DiMENhydriNATE IV* 50 MG/ML VIAL ONE (15:22)
[2018-09-11] MEDS ORDERED: hydrALAZINE IV* 20 MG/ML VIAL IV SLOW PU PRN (16:10)
[2018-09-11] MEDS ORDERED: hydrALAZINE IV* 20 MG/ML VIAL ONE (16:14)
[2018-09-11] MEDS ORDERED: Warfarin TAB(*) 10 MG PO ONE (17:00)
[2018-09-11] MEDS: Acetaminophen TAB* 325 MG PO SCH (18:02)
[2018-09-11] MEDS: Cetirizine* 10 MG TAB PO SCH (18:04)
[2018-09-11] MEDS: traMADol TAB* 50 MG PO SCH (18:04)
[2018-09-11] MEDS: amLODIPine TAB* 5 MG PO SCH (18:04)
[2018-09-11] MEDS: Calcium Polycarbophil TAB* 625 MG PO SCH (18:05)
[2018-09-11] MEDS: D5W 1/2 NS 1000 ML BAG* 1,000 ML IV SCH (18:09)
[2018-09-11] MEDS: Mometasone/Formoter 200/5 MDI INH SCH (19:58)
--- NOTE | 2018-09-11 20:16 | OP ---
DATE OF OPERATION: 09/11/18 - ROOM #342 DATE OF : 52 SURGEON: Samir Morales MD. ROOFING SUPERVISOR: DEBRA Henriquez. ANESTHESIA: Spinal/sedation/regional. PRE-OP DIAGNOSIS: Osteoarthritis, left knee. POST-OP DIAGNOSIS: Osteoarthritis, left knee. OPERATIVE PROCEDURE: Left total knee arthroplasty. ESTIMATED BLOOD LOSS: Less than 25 cc. COMPLICATIONS: None. HARDWARE: Marga Persona D narrow femur, #4 tibia, 10 mm polyethylene spacer 32 mm, all polyethylene patellar button. SUMMARY: Ms. Portillo is a 68-year-old female who has had a many-year history of bilateral knee pain. She is [id number] in the patellofemoral compartment of both knees and has some spurs developing in the weightbearing portion of the knees as well. I discussed with her that total knee arthroplasty should work well to decrease her pain and improve her function. Risks of surgery such as infection, scar formation, stiffness, DVT, pulmonary embolism, hardware failure , and continued pain were discussed and she agrees to proceed with the procedure. The patient had a femoral nerve block placed in the holding area and was brought back to the OR. Spinal anesthesia was introduced. Sauer catheter was then placed. Tourniquet was placed over the proximal left thigh and was used during the case. Total tourniquet time would be approximately 55 minutes. DESCRIPTION OF PROCEDURE: Left knee was prepped and then draped. Esmarch was used exsanguinate the leg and the tourniquet was raised. Midline incision was made just medial to the tibial tubercle and carried up through the center of the patella and for about 3 cm above the superior pole of the patella. Incision was carried down through the skin and subcutaneous tissues. Small bleeders encountered were ligated using electrocautery. Extensor mechanism was exposed and a sharp parapatellar arthrotomy was made. Quite a bit of clear, yellowish joint fluid was encountered. Soft tissues were sharply elevated from the medial side of tibia and the fat pad was sharply excised. Patella measured 19 mm in thickness and a 10 mm cut was taken. Rongeur was to take down some of the spurs on the lateral side as well. Knee was flexed up and nice exposure of the distal femur was obtained. Step drill was used to open femoral canal. An Intramedullary guide was placed. Outrigger was assembled and adjusted until it was parallel to the epicondyle and the distal femoral cutting guide was then pinned into place. Intramedullary guide was removed. Distal femoral cut was taken and much more was taken medially than the laterally as I thought it should be. Femur was sized and she sat perfectly for a 4. Holes were drilled and a cutting block was placed. Drill was run through the superior hole and is right on the top side at the femur indicating that the femur would not notch. Anterior and posterior femoral cuts followed by the chamfer cuts were taken. Attention was turned to the tibia. A step drill was used to open the tibial canal at the junction of the lateral meniscus and ACL. Intramedullary guide was placed and an Outrigger was assembled and adjusted until it would take 2 mm from the medial side. Proximal tibial cut was taken and nice cut was obtained. Tibia was sized and a D fit perfectly anterior to posterior and medial to lateral. The D was pinned into place and the proximal tibia was drilled and then punched. Femur was placed and the notch cut was finished using the notch cut finishing guide. Stud holes were drilled. Trial polyethylene was snapped into place and it came out nicely in the full expansion, flexed well and was stable throughout. Patella tracking was perfect without the button. Patella was sized and a 32 seemed to fit perfectly. Holes were drilled and trial was snapped into place. Patellar tracking was still excellent. Trial instrumentation was removed and knee was copiously pulse lavaged. Cement was being prepared. Tibia followed by femur and patella were all cemented into place. Excess cement was removed and the cement was allowed to harden. Knee was again pulse lavaged and searched, were cemented afterwards and a few small pieces were found. Trial polyethylene was again snapped into place. The knee came out nicely until full extension, easily flexed without any lift-off of the trial polyethylene and she was stable throughout. Trial poly was then removed. Knee was again copiously pulse lavaged and searched. Polyethylene was then snapped into place. Knee was again pulsed lavaged and parapatellar arthrotomy was repaired using interrupted #1 Vicryl sutures. Tourniquet was let down and no significant bleeding was encountered. Subcutaneous suture were approximate using 2-0 Vicryl. Skin was closed using heather. Sterile dressing and Cryo Cuff were applied in the OR. The patient was then awakened, stable on transfer to the recovery room. [id number]/[facility] #: [id number] CARMELINA
[2018-09-11] MEDS: Magnesium Hydroxide LIQ* 30 ML UDC PO SCH (21:13)
[2018-09-11] MEDS: Docusate CAP* 100 MG PO SCH (21:13)
[2018-09-11] MEDS: ceFAZolin 1 GM ADVAN(*) 1 GM in NS 0.9% 50 ML* 50 ML IVPB SCH (21:14)
--- NOTE | 2018-09-11 21:16 | CONS ---
CC: Dr. Constance Lares * CONSULTATION REPORT: DATE OF CONSULT: 09/11/18 PRIMARY CARE PROVIDER: Dr. Constance Lares. REQUESTING PHYSICIAN IN CONSULT: Dr. Samir Morales. ATTENDING PHYSICIAN: Dr. Jess Vasquez (dictated by DEBRA Marquez). REASON FOR CONSULT: Co-medical management. HISTORY OF PRESENT ILLNESS/HOSPITAL COURSE: I refer you to Dr. Morales's history and physical dictated on 08/16/18 for complete details, but in short, Ms. Portillo is a 68-year-old female with a past medical history of hypertension, asthma, osteoarthritis and osteoporosis, who presented to [facility] on 09/11/18 for an elective left total knee arthroplasty. She is seen in the recovery room. She notes that she had some dizziness, which led to vomiting x1. She was given Zofran for this and reports resolution of symptoms. At this time, she denies chest pain, shortness of breath, abdominal pain, nausea, vomiting, diarrhea, constipation, or pain in the extremities. She states that her left knee pain is well controlled. She denies headache, dizziness, or vision changes. She is comfortable at this time. PAST MEDICAL HISTORY: 1. Hypertension. 2. Asthma. 3. GERD. 4. Depression. 5. Osteoarthritis. 6. Osteoporosis. PAST SURGICAL HISTORY: Cataract removal. HOME MEDICATIONS: 1. ProAir RespiClick 1 puff inhalation daily p.r.n. shortness of breath, wheeze. 2. Amlodipine 5 mg p.o. q.p.m. 3. Betamethasone 0.05% ointment q.p.m. p.r.n. itching. 4. Symbicort 160/4.5 one puff inhalation b.i.d. 5. Calcium polycarbophil 625 mg p.o. q.p.m. 6. Clobetasol 0.05% ointment 1 application topically b.i.d. p.r.n. rash. 7. Epinephrine 0.3 mg IM once p.r.n. allergy symptoms. 8. Fexofenadine 180 mg p.o. q.p.m. 9. Fluticasone nasal spray 50 mcg 2 sprays both nares daily p.r.n. allergy symptoms. 10. Menthol/camphor 1 topical application daily p.r.n. itching. 11. Sertraline 50 mg p.o. q.p.m. DRUG ALLERGIES: ASPIRIN, upset stomach; TREE NUTS, headache; EGG, itching; SHELLFISH, rash; NORCO - HYDROCODONE, ACETAMINOPHEN; BACTRIM - SULFAMETHOXAZOLE/ TRIMETHOPRIM; SALMON. FAMILY HISTORY: Positive for tuberculosis, lung cancer, uterine cancer. SOCIAL HISTORY: The patient does not and has never smoked. She does not drink alcohol. She is . She lives with her daughter. In the event that she is unable to make her own medical decisions, she appoints her daughter, Pinky Portillo, to be her surrogate decision maker. REVIEW OF SYSTEMS: A 10-point review of systems was performed and all the pertinent positives and negatives are in the HPI. All other systems are negative. PHYSICAL EXAM: General: Ms. Portillo a well-developed, well-nourished, 68-year- old female, who is lying in bed sleeping in the PACU postoperatively. She wakes easily, but is groggy. She is cooperative and pleasant. Her daughter is at the bedside and helps to facilitate conversation as there is a small degree of language barrier. HEENT: Visual gay are grossly intact. PERRL. Sclerae are without icterus. Hearing is grossly intact. Oral mucous membranes are dry. There are no lesions. The pharynx is clear. Cardiovascular: Regular rate and rhythm with S1, S2 present. There are no murmurs, rubs, clicks , or gallops. There is no JVD. Respiratory: Symmetrical chest expansion without use of accessory muscles. Lungs are clear to auscultation. There are no rhonchi, wheezes, or rubs. Abdomen: Bowel sounds in all quadrants. The abdomen is flat, soft, and nontender to palpation. There is no hepatosplenomegaly. Extremities: Skin is warm and smooth bilaterally. There is no clubbing, cyanosis, or edema. Radial and pedal pulses are palpable. The left knee has a clean, dry, and intact dressing in place. Cryo unit is in place. Distal sensation intact, the patient able to move extremities. Pulses and capillary refill intact. Neuro: The patient is asleep, but wakes easily. She is alert. She is oriented x3. She can move all of her extremities. ASSESSMENT AND PLAN: Ms. Portillo is a 68-year-old female with a past medical history of hypertension and asthma, who presented to [facility] today for an elective left total knee arthroplasty. The patient will be admitted inpatient for: 1. Left total knee arthroplasty. Management per Ortho. 2. Hypertension. The patient is hypertensive postoperatively. She notes that the last time she took her antihypertensives was last night. She will be continued on amlodipine 5 p.o. in the evenings. Hydralazine has been ordered temporarily as the patient is noted to be more hypertensive postoperatively. 3. Asthma. The patient will be continued on her home inhalers. 4. Depression. The patient will be continued on sertraline 50. 5. Code status: Full code. 6. DVT prophylaxis: Per Ortho, the patient will be placed on heparin 5000 q.8 hours. TIME SPENT: Approximately 35 minutes was spent on this consultation, greater than half that time was spent with the patient and her daughter obtaining history, performing physical, and reviewing the plan of care. The case has been reviewed with my attending, Dr. Vasquez, who is in agreement with the plan of care. DEBRA PARSONS [id number]/[facility] #: [id number] CARMELINA
[2018-09-12] MEDS: traMADol TAB* 50 MG PO SCH ×4 (00:29→17:54)
[2018-09-12] MEDS: Acetaminophen TAB* 325 MG PO SCH ×3 (00:29→17:53)
[2018-09-12] MEDS: D5W 1/2 NS 1000 ML BAG* 1,000 ML IV SCH ×2 (03:35→14:10)
[2018-09-12] MEDS: ceFAZolin 1 GM ADVAN(*) 1 GM in NS 0.9% 50 ML* 50 ML IVPB SCH ×2 (04:49→12:38)
[2018-09-12 06:36] LABS: INR 1.09 (0.82-1.09)
[2018-09-12 06:48] LABS: BUN/Creatinine Ratio 15.6 (8-20); Calcium 8.9 mg/dL (8.6-10.3); EGFR Non-African American 92.6 (>60); Potassium 3.4 mmol/L (3.5-5.0)
[2018-09-12 06:51] LABS: Hematocrit 43 % (35-47); Hemoglobin 14.5 g/dL (12.0-16.0); Mean Corpuscular HGB Conc 34 g/dL (31-36); Mean Corpuscular Hemoglobin 30 pg (27-31); Mean Corpuscular Volume 90 fL (80-97); Mean Platelet Volume 8.8 fL (7.4-10.4); Platelet Count 191 10^3/uL (150-450); Red Blood Count 4.83 10^6 /uL (3.70-4.87); Red Cell Distribution Width 13 % (10.5-15); White Blood Count 8.8 10^3/uL (3.5-10.8)
[2018-09-12] MEDS: Mometasone/Formoter 200/5 MDI INH SCH (08:38)
[2018-09-12] MEDS: Docusate CAP* 100 MG PO SCH ×2 (08:38→19:27)
[2018-09-12] MEDS: Magnesium Hydroxide LIQ* 30 ML UDC PO SCH ×2 (08:38→19:27)
[2018-09-12] MEDS ORDERED: oxyCODONE/Acetamin 5/325 MG* TAB PO PRN (09:07)
--- NOTE | 2018-09-12 09:57 | PN ---
Progress Note - Progress Note Date of Service: 09/12/18 SOAP: Subjective: [] Pt seen OOB in chair. She feels well, left knee pain is tolerable. Confirms mild dizziness with position change which resolves with sitting. Denies CP, SOB , nausea. Objective: []General: Appears well, NAD LLE: left knee dressing CDI, thigh is soft, DF/PF intact, DP+, sensation intact to light touch distally Calves supple and nontender without erythema, edema or palpable cords Assessment: []POD 1 sp LTK Plan: []WBAT PT/OT heparin, coumadin 6 mg today Patient will consider DC home today vs tomorrow after afternoon PT, she anticipates tomorrow Vital Signs Temp 98.4 F 09/12/18 09:26 Pulse 64 09/12/18 09:26 Resp 15 09/12/18 09:26 BP 116/65 09/12/18 09:26 Pulse Ox 96 09/12/18 09:26 Intake & Output 09/11/18 09/12/18 09/12/18 18:59 06:59 18:59 Intake Total 1350 1300 Output Total 1375 1400 Balance -25 -100 Weight 121 lb 12.8 oz Intake: IV Fluids 1350 1050 ABX - CEFAZOLIN 55 D5W 1/2 NS 995 LR 1300 NS 50ML, Cefazolin 2G 50 Oral 250 Output: Sauer 1375 1400 Other: Estimated Blood Loss 150 Comment Laboratory Last Values WBC 8.8 10^3/uL (3.5-10.8) 09/12/18 06:13 RBC 4.83 10^6 /uL (3.70-4.87) 09/12/18 06:13 Hgb 14.5 g/dL (12.0-16.0) 09/12/18 06:13 Hct 43 % (35-47) 09/12/18 06:13 MCV 90 fL (80-97) 09/12/18 06:13 MCH 30 pg (27-31) 09/12/18 06:13 MCHC 34 g/dL (31-36) 09/12/18 06:13 RDW 13 % (10.5-15) 09/12/18 06:13 Plt Count 191 10^3/uL (150-450) 09/12/18 06:13 MPV 8.8 fL (7.4-10.4) 09/12/18 06:13 INR (Anticoag Therapy) 1.09 (0.82-1.09) 09/12/18 06:13 Sodium 139 mmol/L (135-145) 09/12/18 06:13 Potassium 3.4 mmol/L (3.5-5.0) L 09/12/18 06:13 Chloride 106 mmol/L (101-111) 09/12/18 06:13 Carbon Dioxide 26 mmol/L (22-32) 09/12/18 06:13 Anion Gap 7 mmol/L (2-11) 09/12/18 06:13 BUN 10 mg/dL (6-24) 09/12/18 06:13 Creatinine 0.64 mg/dL (0.51-0.95) 09/12/18 06:13 Est GFR ( Amer) 112.0 (>60) 09/12/18 06:13 Est GFR (Non-Af Amer) 92.6 (>60) 09/12/18 06:13 BUN/Creatinine Ratio 15.6 (8-20) 09/12/18 06:13 Glucose 118 mg/dL (70-100) H 09/12/18 06:13 Calcium 8.9 mg/dL (8.6-10.3) 09/12/18 06:13
[2018-09-12] MEDS ORDERED: Potassium Chlor TAB* 20 MEQ TAB.ER PO ONE (10:10)
[2018-09-12] MEDS: oxyCODONE TAB* 5 MG TAB PO PRN ×3 (14:09→22:12)
[2018-09-12] MEDS ORDERED: Warfarin TAB(*) 7.5 MG PO ONE (17:06)
[2018-09-12] MEDS: amLODIPine TAB* 5 MG PO SCH (17:53)
[2018-09-12] MEDS: Calcium Polycarbophil TAB* 625 MG PO SCH (17:54)
[2018-09-12] MEDS: Cetirizine* 10 MG TAB PO SCH (17:55)
[2018-09-12] MEDS: PTO:Budesonide/Formote 160/4.5(NF) MDI INH SCH (19:43)
[2018-09-12] MEDS: Heparin VIAL(*) 5000 UNITS/ML VIAL (FIVE THOUSAND) SUBCUT SCH (22:13)
[2018-09-13] MEDS: Acetaminophen TAB* 325 MG PO SCH ×2 (00:32→08:37)
[2018-09-13] MEDS: traMADol TAB* 50 MG PO SCH ×3 (00:33→12:00)
[2018-09-13] MEDS: oxyCODONE TAB* 5 MG TAB PO PRN ×2 (03:30→08:37)
[2018-09-13 05:10] LABS: Hematocrit 37 % (35-47); Hemoglobin 12.6 g/dL (12.0-16.0); Mean Platelet Volume 8.7 fL (7.4-10.4); Platelet Count 197 10^3/uL (150-450)
[2018-09-13 05:15] LABS: INR 2.99 (0.82-1.09)
[2018-09-13] MEDS: Heparin VIAL(*) 5000 UNITS/ML VIAL (FIVE THOUSAND) SUBCUT SCH (05:31)
[2018-09-13] MEDS ORDERED: Potassium Chlor TAB* 20 MEQ TAB.ER PO ONE (07:49)
[2018-09-13] MEDS: PTO:Budesonide/Formote 160/4.5(NF) MDI INH SCH (08:05)
[2018-09-13] MEDS: Docusate CAP* 100 MG PO SCH (08:37)
[2018-09-13] MEDS: Magnesium Hydroxide LIQ* 30 ML UDC PO SCH (08:41)
--- NOTE | 2018-09-13 09:32 | PN ---
Progress Note - Progress Note Date of Service: 09/13/18 SOAP: Subjective: [] Pt seen at bedside. Knee pain is well controlled, she desires DC to home. Denies CP, SOB, dizziness, nausea. Objective: []General: Appears well, NAD LLE: left knee dressing changed, incision CDI, thigh is soft, DF/PF intact, DP+ , sensation intact to light touch distally Calves supple and nontender without erythema, edema or palpable cords Assessment: []POD 2 sp LTK Plan: []WBAT PT/OT Coumadin 2 mg today DC home today 40meq K+ today and repeat value with VNS tomorrow Vital Signs Temp 98.6 F 09/13/18 08:25 Pulse 81 09/13/18 08:25 Resp 18 09/13/18 08:37 BP 129/68 09/13/18 08:25 Pulse Ox 96 09/13/18 08:25 Intake & Output 09/12/18 09/13/18 09/13/18 18:59 06:59 18:59 Intake Total 2190 880 480 Output Total 1500 850 Balance 690 30 480 Intake: IV Fluids 1170 ABX - CEFAZOLIN 100 D5W 1/2 NS 1070 Oral 1020 880 480 Output: Urine 1500 850 Other: # Bowel Movements 0 Laboratory Last Values WBC 8.8 10^3/uL (3.5-10.8) 09/12/18 06:13 RBC 4.83 10^6 /uL (3.70-4.87) 09/12/18 06:13 Hgb 12.6 g/dL (12.0-16.0) 09/13/18 05:00 Hct 37 % (35-47) 09/13/18 05:00 MCV 90 fL (80-97) 09/12/18 06:13 MCH 30 pg (27-31) 09/12/18 06:13 MCHC 34 g/dL (31-36) 09/12/18 06:13 RDW 13 % (10.5-15) 09/12/18 06:13 Plt Count 197 10^3/uL (150-450) 09/13/18 05:00 MPV 8.7 fL (7.4-10.4) 09/13/18 05:00 INR (Anticoag Therapy) 2.99 (0.82-1.09) H 09/13/18 05:00 Sodium 139 mmol/L (135-145) 09/12/18 06:13 Potassium 3.3 mmol/L (3.5-5.0) L 09/13/18 05:00 Chloride 106 mmol/L (101-111) 09/12/18 06:13 Carbon Dioxide 26 mmol/L (22-32) 09/12/18 06:13 Anion Gap 7 mmol/L (2-11) 09/12/18 06:13 BUN 10 mg/dL (6-24) 09/12/18 06:13 Creatinine 0.64 mg/dL (0.51-0.95) 09/12/18 06:13 Est GFR ( Amer) 112.0 (>60) 09/12/18 06:13 Est GFR (Non-Af Amer) 92.6 (>60) 09/12/18 06:13 BUN/Creatinine Ratio 15.6 (8-20) 09/12/18 06:13 Glucose 118 mg/dL (70-100) H 09/12/18 06:13 Calcium 8.9 mg/dL (8.6-10.3) 09/12/18 06:13
--- NOTE | 2018-09-13 09:51 | DS ---
Orthopedic Discharge Summary - Discharge Summary Date of Admission:09/11/18 Date of Discharge: 09/13/18 Date of Surgery: 09/11/18 Attending Orthopedic Provider: Dr Morales Pre-operative Diagnosis: left knee osteoarthritis Operative Procedure: left total knee arthroplasty Disposition of Patient: home Condition of Patient: stable History: MARILY PHAM is a 68 year old F with years of increasingly severe left knee pain. Patient has failed conservative management and has elected to undergo a left total knee replacement Hospital Course: MARILY was admitted to [facility] on 09/11/18. Patient underwent a left total knee replacement without complication followed by a brief recovery in PACU and transfer to the Short Stay Surgical Unit in stable condition. Our hospitalist service, physical therapy and occupational therapy also participated in this patients care. Post-op day 1: patient was alert and in no acute distress. Dressing was clean, dry and intact. Operative extremity dorsiflexion and plantarflexion intact, sensation intact to light touch distally, DP2+. Post-op day two: dressing was changed, incision was clean , dry and intact. Patient was deemed to be medically and orthopedically stable for discharge. Physical therapy goals were met.Patient had hypokalemia as low as 3.3, oral potassium replacement supplied. Home Medications Medication Instructions Recorded Confirmed Type Budesonide/Formoterol Fumarate 1 puff IN BID 06/15/13 09/11/18 History Symbicort 160-4.5 Mcg Inhaler EPINEPHrine [Epipen 2-Pepe] 0.3 mg IM ONCE PRN #1 inj 09/08/16 09/11/18 Rx Albuterol inh POWDER (NF) [Proair 1 puff INH DAILY PRN 08/29/18 09/11/18 History Respiclick] Amlodipine Besylate [Norvasc] 5 mg PO QPM 08/29/18 09/11/18 History Betamethasone Dip 0.05% ON(NF) 1 applic .SEE ORDER QPM PRN 08/29/18 09/11/18 History [Betamethasone Dipr 0.05% OINT(NF)] Calcium Polycarbophil [Fiber] 625 mg PO QPM 08/29/18 09/11/18 History Clobetasol 0.05% OINT* 1 applic TOPICAL BID PRN 08/29/18 09/11/18 History Fexofenadine (NF) [Nicole 180 180 mg PO QPM 08/29/18 09/11/18 History (NF)] Fluticasone NASAL SPRAY 50MCG* 2 spray BOTH NARES DAILY PRN 08/29/18 09/11/18 History [Flonase NASAL SPRAY 50MCG*] Menthol/Camphor [Sarna Anti-Itch 1 top.lotion TOPICAL DAILY PRN 08/29/18 History Lotion] Sertraline HCl [Zoloft] 50 mg PO QPM 08/29/18 09/11/18 History Acetaminophen TAB* [Tylenol TAB*] 975 mg PO Q8H tab 09/13/18 Rx Docusate CAP* [Colace Cap*] 100 mg PO BID PRN #90 cap 09/13/18 Rx Warfarin TAB(*) [Coumadin TAB(*)] 2 mg PO DAILY #90 tab 09/13/18 Rx traMADol TAB* [Ultram*] 50 mg PO Q6HR PRN #56 tab MDD 8 09/13/18 Rx Discharge Instructions following Orthopedic Surgery: Activity: * Weight Bearing as tolerated * Continue physical therapy and occupational therapy exercises as shown * Home physical therapy Wound care: * OK to shower on post-op day 3, no bathing, swimming, or submerging wound. * Use gentle soap, pat dry. Cover with gauze, CAPRICE wrap or tape. * Visiting home nurse to do wound checks. Call Orthopedic office for: * Increased drainage * Redness * Increased pain * Fever Go to ER with shortness of breath or chest pain. Diet: * Regular diet * Increase fluids and fiber to prevent constipation. * Continue to use stool softeners, call office if no bowel motion within 48 hours. Medications See Home Medication List in your packet for medications that you should take after discharge. DVT Prophylaxis: Coumadin Dosing: * Please note that you have been given 2 mg tablets. * Visiting home nurse to draw blood work for INR on Tuesday and . * You will be provided with dose instructions on Mondays and . * If you do not receive dosing instruction on dosing, please call our office right away. Please charly dosing instructions on your calendar as they are provided to you. * Dosin/22 take 2 mg * 09/14 need an INR blood draw for further dosing instructions. Call orthopedic office if you do not receive dosing instructions. You will also need a potassium level drawn by your home nurse on 09/14 due to low levels in the hospital. Pain Control: Tramadol 50 mg 1-2 tabs every 6 hours as needed for pain, max 8 tabs per day. Hold for sedation or dizziness. Wean off to tylenol alone as soon as pain allows Antibiotics are required prior to any dental work. FOLLOW UP: Follow up with Dr. Dominguez] Within 4 weeks, call for appointment Please call our office with any questions or concerns ([phone])
--- NOTE | 2018-09-13 09:56 | PN ---
Hospitalist Progress Note Date of Service: 09/13/18 Chart reviewed. Mild hypokalemia this morning. Ordered additional 40meq today. Would recommend rechecking BMP tomorrow. BP under good control. Recommend resuming home medications. She is stable for d/c home from a Hospital Med standpoint. Discussed with DEBRA Henriquez.
[2018-09-13 11:59] VITALS: BP 131/75
== END 2018-09-13 13:10 | disposition home health service (06) | DRG 470 ==
LOC: AA 09:50 → SSU 17:00
PROVIDERS: ADMIT Orthopaedic Surgery; ATTEND Orthopaedic Surgery
PROC: 0SRD0J9 Replacement of Left Knee Joint with Synthetic Substitute, Cemented, Open Approach (ICD-10-PCS; principal; 2018-09-11 12:00)
DX: M17.0 Bilateral primary osteoarthritis of knee (principal); F32.0 Major depressive disorder, single episode, mild; I10 Essential (primary) hypertension; J45.40 Moderate persistent asthma, uncomplicated; J30.9 Allergic rhinitis, unspecified; M81.0 Age-related osteoporosis without current pathological fracture; K21.9 Gastro-esophageal reflux disease without esophagitis; F41.9 Anxiety disorder, unspecified; K64.9 Unspecified hemorrhoids; Z98.49 Cataract extraction status, unspecified eye; Z82.49 Family history of ischemic heart disease and other diseases of the circulatory system; Z79.01 Long term (current) use of anticoagulants; Z88.1 Allergy status to other antibiotic agents; Z88.8 Allergy status to other drugs, medicaments and biological substances; Z88.5 Allergy status to narcotic agent; Z91.013 Allergy to seafood; Z80.1 Family history of malignant neoplasm of trachea, bronchus and lung; Z80.8 Family history of malignant neoplasm of other organs or systems; Z83.1 Family history of other infectious and parasitic diseases; E87.6 Hypokalemia
CPT/HCPCS: 36415; 80048; 84132; 85014; 85018; 85027; 85049; 85610; 88305; 88311; 94640; A9270-GY; G8978-GP-CJ; G8979-GP-CI; J0360; J0690; J1100; J1240; J1644; J2001; J2250; J2405; J2704; J2795; J3010; J3490

== ENCOUNTER 2018-10-15 17:53 | Emergency (ER) | payer MEDICARE, MEDICAID ==
--- OUTSIDE RECORDS SUMMARY | 2018-10-15 18:02 | XMS REPORT | Continuity of Care Document ---
:1950 External Reference #:[id number] Author Name Douglas Mayen M.D. Address [address] [place] [address] Care Team Providers Name Role Phone Constance Lares MD Care Team Information Graduate Nurse Unavailable Constance Lares MD Primary Care Physician Unavailable Payers Date Identification Numbers Payment Provider Subscriber Policy Number: [id number] [place] Minister[employer] Portillo PayID: [id number] [address] [place] [address] Effective: 2013 Policy Number: [id number] [facility] Ministerio Portillo Expires: 2016 PayID: [id number] [address] [address] [place] [address] Policy Number: [id number] Medicaid [place] Ministerio Portillo PayID: [id number] [address] [place] [address] Problems Active Problems Provider Date Nuclear senile cataract Douglas Mayen M.D. Onset: 05/15/2013 Borderline glaucoma Douglas Mayen M.D. Onset: 05/15/2013 Status Post Surgery Douglas Mayen M.D. Onset: 06/20/2013 Lens Replaced By Other Means Edinson Tijerina O.D. Onset: 07/02/2013 Tear film insufficiency Edinson Tijerina O.D. Onset: 07/23/2013 Presence of intraocular lens Douglas Mayen M.D. Onset: 01/06/2015 Chronic allergic conjunctivitis Douglas Mayen M.D. Onset: 01/10/2017 Family History Date Family Member(s) Observation Comments Father Cancer Father due to Lung Cancer () Mother Cancer Mother due to Uterine Cancer () Social History Type Date Description Comments Sex Unknown ETOH Use Never used alcohol Tobacco Use Start: Unknown Patient has never smoked Smoking Status Reviewed: 10/13/18 Patient has never smoked Allergies, Adverse Reactions, Alerts Active Allergies Reaction Severity Comments Date Aspirin 04/27/2013 Shellfish 04/27/2013 Seasonal 04/27/2013 Medications Active Medications SIG Qnty Indications Ordering Provider Date Olopatadine HCL 1gtt both eyes 5ml H04.123 Douglas Mayen, 01/12/2018 0.1% every day as M.D. Solution needed Astelin Unknown 137mcg/[place] Solution Sertraline HCL Unknown 25mg Tablets Proair HFA Unknown 108(90Base) mcg/Act Aerosol Symbicort Unknown 80-4.5mcg/Act Aerosol Montelukast Sodium Unknown 10mg Tablets Amlodipine Besylate Unknown 5mg Tablets Tramadol HCL Take 1 To 2 Unknown 50mg Tablets By Mouth Tablets Every 6 Hours as Needed For Severe Pain, Hold For Sedation - Maximum Daily Dose Of 8 History Medications Pazeo 1 drop both 7.5ml H10.45 Douglas Mayen, 01/10/2017 - 0.7% Solution eyes every day M.D. 01/12/2018 Refresh Optive 1 drops both 2ml 375.15 Edinson Tijerina, 07/23/2013 - 0.5-0.9% eyes twice a O.D. 01/12/2018 Solution day Ciprofloxacin 1 drop drops 2.5ml Douglas Mayen, 06/11/2013 - 0.2% right eye four M.D. 07/23/2013 Solution times a day Vigamox 1 drop drops 3ml Douglas Mayen, 06/07/2013 - 0.5% Solution right eye four M.D. 07/23/2013 times a day Vigamox 1 drop drops 3ml Douglas Mayen, 05/30/2013 - 0.5% Solution right eye four M.D. 07/23/2013 times a day Ketorolac Tromethamine 1 drops right 5ml Douglas Mayen, 05/30/2013 - eye twice a M.D. 07/23/2013 0.5% Solution day Pred Forte 1 drops right 10ml Douglas Mayen, 05/30/2013 - 1% Suspension eye four times M.D. 07/23/2013 a day Vital Signs Date Vital Result Comment 10/13/2018 8:39am Intraocular Pressure Right Eye 14 mmHg Intraocular Pressure Left Eye 15 mmHg 01/12/2018 8:27am Intraocular Pressure Right Eye 12 mmHg Intraocular Pressure Left Eye 12 mmHg 07/11/2017 8:41am Intraocular Pressure Right Eye 14 mmHg Intraocular Pressure Left Eye 14 mmHg 01/10/2017 10:20am Intraocular Pressure Right Eye 13 mmHg Intraocular Pressure Left Eye 13 mmHg 07/09/2016 3:17pm Intraocular Pressure Right Eye 15 mmHg Intraocular Pressure Left Eye 14 mmHg 01/01/2016 2:19pm Intraocular Pressure Right Eye 15 mmHg Intraocular Pressure Left Eye 15 mmHg 05/26/2015 3:22pm Intraocular Pressure Right Eye 15 mmHg Intraocular Pressure Left Eye 15 mmHg 01/06/2015 11:13am Intraocular Pressure Right Eye 16 mmHg Intraocular Pressure Left Eye 14 mmHg 07/23/2013 8:37am Intraocular Pressure Right Eye 14 mmHg Intraocular Pressure Left Eye 14 mmHg 07/02/2013 10:41am Intraocular Pressure Right Eye 15 mmHg Intraocular Pressure Left Eye 15 mmHg 06/26/2013 10:06am Intraocular Pressure Right Eye 16 mmHg Intraocular Pressure Left Eye 17 mmHg 06/20/2013 10:30am Intraocular Pressure Right Eye 16 mmHg 05/15/2013 9:25am Intraocular Pressure Right Eye 16 mmHg Intraocular Pressure Left Eye 16 mmHg Procedures Date Code Description Status 10/13/2018 46951 Oct, Optic Nerve Completed 10/13/2018 24247 Visual Field Exam Extended, Unilateral Or Bilateral Completed 10/13/2018 96394 Eye Exam Est Intermediate Completed 01/12/2018 89897 Fundus Photography W/Interpretation & Report Completed 01/12/2018 88972 Eye Exam Est Intermediate Completed 07/11/2017 53761 Oct, Optic Nerve Completed 07/11/2017 21133 Visual Field Exam Extended, Unilateral Or Bilateral Completed 07/11/2017 05458 Eye Exam Est Intermediate Completed 01/10/2017 63077 Fundus Photography W/Interpretation & Report Completed 01/10/2017 75076 Eye Exam Est Intermediate Completed 07/09/2016 45081 Oct, Optic Nerve Completed 07/09/2016 99370 Visual Field Exam Extended, Unilateral Or Bilateral Completed 07/09/2016 24980 Eye Exam Est Intermediate Completed 01/01/2016 94026 Eye Exam Est Comprehensive Completed 01/01/2016 00366 Fundus Photography W/Interpretation & Report Completed 05/26/2015 05101 Oct, Optic Nerve Completed 05/26/2015 66417 Visual Field Exam Extended, Unilateral Or Bilateral Completed 05/26/2015 45943 Eye Exam Est Intermediate Completed 01/06/2015 39439 Fundus Photography W/Interpretation & Report Completed 01/06/2015 11556 Eye Exam Est Comprehensive Completed 01/22/2014 49608 Visual Field Exam Extended, Unilateral Or Bilateral Completed 01/22/2014 62030 Eye Exam Est Intermediate Completed 06/25/2013 21708 Extracapsular Cataract Extraction W/Intraocular Lens Completed 06/19/2013 76267 Extracapsular Cataract Extraction W/Intraocular Lens Completed 05/15/2013 30580 Ophthalmic Biometry By Partial Coherence Interferometry Completed W/Intra 05/15/2013 00807 Eye Exam Est Intermediate Completed Plan of Treatment 10/13/2018 - Douglas Mayen M.D.H40.013 Open angle with borderline findings, low risk, bilateralFollow up:6 mos full
--- OUTSIDE RECORDS SUMMARY | 2018-10-15 18:03 | XMS REPORT | Continuity of Care Document ---
:1950 External Reference #:[id number] Author Name Elina Fish Care Team Providers Name Role Phone Constance Lares MD Primary Care Physician Unavailable Payers Date Identification Numbers Payment Provider Subscriber Policy Number: [id number] Medicare Htago Pham PayID: [id number] [address] [place] [address] Effective: 2015 Policy Number: [id number] Medicare Marily Pham Expires: 2018 PayID: [id number] [address] [place] [address] Effective: 2015 Policy Number: [place]/[employer] Medicaid Htago Pham [id number] Expires: 2015 PayID: [id number] [address] [address] [place] [address] Effective: 2011 Policy Number: [place] [employer]ential Htago Pham [id number] Expires: 2014 PayID: [id number] [address] [address] [place] [address] Effective: 2015 Policy Number: [id number] Medicaid [employer] Name: 1 1 [address] PayID: [id number] [place] [address] Problems Active Problems Provider Date Asthma without [...] Use Denies Drug Use Smoking Status Reviewed: 09/22/18 Patient has never smoked Exercise Type/Frequency Does not exercise Allergies, Adverse Reactions, Alerts Active Allergies Reaction Severity Comments Date Bactrim hives 09/20/2012 Aspirin hives 09/20/2012 Shellfish-derived Products hives 09/20/2012 Homer hives 09/20/2012 Medications Active Medications SIG Qnty Indications Ordering Date Provider Symbicort 2 puffs po bid 30units Unknown 160-4.5mcg/Act Aerosol Fluticasone 1 spray each 16gm Unknown Propionate nostril daily as 50mcg/Act needed Suspension Sertraline HCL 1/2 tab by mouth 90tabs Unknown 100mg every day Tablets Ibuprofen 3 in am, 3 in pm 100tabs Unknown 200mg prn Tablets Sarna topical as needed Unknown 0.5-0.5% Lotion for pruritis Amlodipine Besylate 1 by mouth every Unknown day 5mg Tablets Fexofenadine HCL once daily Unknown 180mg Tablets Fiber-Lax 1 tab by mouth once Unknown 625mg a day Tablets Proctozone-HC use after bowel Unknown 2.5% movement and every Cream night at bedtime Singulair 1 by mouth every Unknown 10mg day Tablets Tramadol HCL Take 1 To 2 Tablets Unknown 50mg By Mouth Every 6 Tablets Hours as Needed For Severe Pain -- Hold For Sedation -- Maximum Daily Dose Of 8 Per Day Warfarin Sodium Take 0 To 5 Tablets Unknown 2mg By Mouth Daily - Tablets Dose Depends On Inr Dok Take 1 Capsule By Unknown 100mg Capsules Mouth Every 12 Hours as Needed For Constipation History Medications Neurontin 1 by mouth 30caps M17.12 Samir Morales, 03/23/2017 - 300mg Capsules every night at M.D. Unknown bedtime Diclofenac Sodium Take 1 Tablet 90tabs Samir Morales, 07/18/2013 - 50mg By Mouth Two M.D. 04/19/[address] Times Daily as Needed Ultram sig 1 to 2 tabs 90tabs Samir Morales, 07/18/2013 - 50mg Tablets by mouth every M.D. 04/15/2017 night at bedtime as needed Diclofenac Sodium take one tablet 90tabs Samir Morales, 07/18/2013 - 50mg by mouth twice M.D. 07/18/[address] a day as needed Ultram sig 1 to 2 tabs 60tabs Samir Morales, 12/21/2012 - 50mg Tablets po qhs prn M.D. 07/18/2013 Nitro-Dur 1/2 patch to 30units Samir Morales, 12/21/2012 - 0.1mg/HR Patches left elbow M.D. 07/18/2013 24HR daily, off after 12 hours Ultram sig 1-2 po qhs 60tabs Samir Morales, 09/06/2012 - 50mg Tablets prn, take after M.D. 09/20/2012 taking 2 ES Tylenol Misoprostol take one tablet 60tabs Samir Morales, 04/24/2012 - 200mcg Tablets by mouth twice M.D. Unknown A day prn Diclofenac Sodium DR Take One Tablet 90tabs Samir Morales, 04/24/2012 - 50mg By Mouth Twice M.D. 07/18/[address] A Day as Needed Arthrotec 50 1 po bid 12tabs Samir Morales, 03/29/2012 - 64-163hi-hhh M.D. 07/18/2013 Tablets Hydroxyzine HCL take 1 tab by Unknown - 50mg mouth at Unknown Tablets bedtime for anxiety as needed Levocetirizine 1 po qd 90tabs Unknown - Dihydrochloride 07/18/2013 5mg Tablets Alendronate Sodium 1 po weekly 12tabs Unknown - 70mg Unknown Tablets Ventolin HFA 2 puffs po qid 1units Unknown - 108(90Base) prn 04/19/2017 mcg/Act Aerosol Losartan Potassium 1 po qd 90tabs Unknown - 50mg Unknown Tablets Colace 1 po qd prn 60caps Unknown - 100mg Capsules 07/18/2013 Omeprazole 1 po qd 90caps Unknown - 20mg Capsules DR 04/15/2017 Lorazepam 1 po bid prn 30tabs Unknown - 0.5mg Tablets 07/18/2013 Transderm-Scop apply one patch 4units Unknown - 1.5mg behind ear 09/17/2014 Patches 72HR every 72 hours Ondansetron HCL one by mouth 60tabs Unknown - 4mg Tablets every 8 hours 07/18/2013 as needed for nausea Medications Administered in Office Medication SIG Qnty Indications Ordering Provider Date Dexamethasone Sodium Samir Morales M.D. 08/02/2018 Phosphate, 1 MG Injection Depomedrol 40MG Vishal Marte PA-C 04/12/2018 Injection Depomedrol 40MG Samir Morales M.D. 11/30/2017 Injection Depomedrol 40MG Samir Morales M.D. 07/27/2017 Injection Alejandrorol 40MG Samir Morales M.D. 03/23/2017 Injection Depomedrol [...] Depomedrol 80MG Nolberto Che, 07/18/2013 Injection SARA Dillardomedrol 80MG Samir Morales M.D. 03/21/2013 Injection Vital Signs Date Vital Result Comment 09/22/2018 11:46am Height 63 inches 5'3" Weight 132.00 lb BP Systolic 121 mmHg BP Diastolic 71 mmHg Respiratory Rate 17 /min Body Temperature 98.4 F Pain Level 4 BMI (Body Mass Index) 23.4 kg/m2 08/16/2018 8:16am Height 63 inches 5'3" Weight [...] Test Result H/L Range Note Laboratory test 09/21/2018 [facility] Potassium 4.9 mmol/L N 3.5-5.0 finding [address] [place] [address] [phone] CBC Auto Diff 08/29/2018 [facility] White Blood 5.8 10^3/uL N 3.5-10.[address] [place] [address] [phone] Red Blood Count 4.53 10^6/uL N 3.70-4.87 [...] Cells % 0.0 Type & Screen 08/29/2018 [facility] Patient Blood Type B Positive [address] [place] [address] [phone] Antibody Screen NEGATIVE Comp Metabolic Panel 08/29/2018 [facility] Sodium 140 mmol/L N 135-145 [address] [place] [address] [phone] Potassium 3.4 mmol/L Low 3.5-5.0 Chloride 105 [...] Egfr 125.5 >60 1 Urinalysis Profile 08/29/2018 [facility] Urine Color Yellow [address] [place] [address] [phone] Urine Appearance Cloudy Urine Specific [place] 1.015 N 1.010-1.030 Urine pH 5.0 N [...] Absent Urine Bacteria Absent Absent Inr/Protime 08/29/2018 [facility] Inr 0.91 N 0.82-1.[address] [place] [address] [phone] Laboratory test 08/29/2018 [facility] Partial 26.9 seconds N 26.0-36.[address] [place] [address] PTT [phone] Urine Culture And 08/29/2018 [facility] Urine SEE RESULT [address] [place] [address] [phone] Laboratory test 09/14/2016 [facility] Surgical SEE RESULT [address] Pathology BELOW [place], [place] [address] [phone] Malaria Prep 09/20/2012 [facility] RBC Parasite No Parasites No Parasite [address] Smear See <[place] [address] NOTE> [phone] Blood Smear Pathologist Review Kurt Nicholas <SEE NOTE> 6 Laboratory test 09/20/2012 [facility] C Reactive < 0.5 mg/dL Less than finding [address] Protein 0.5 [place] [address] [phone] CBC Auto Diff 09/20/2012 [facility] White Blood 6.1 10^3/uL 4.8-10.[address] [place] [address] [phone] Red Blood Count 4.78 10^6/uL 4.0-5.4 Hemoglobin [...] 0-2 Nucleated Red Blood Cells % 0.1 1 Because ethnic data is not always [...] range: 2.5-3.5 3 SEE RESULT BELOW Name: MARILY PHAM : [address]: Samir Morales MD Acct: [id number] Unit: [id number] AGE: 68 Location: [facility] Re08/29/18 SEX: F Status: REG REF SPEC: [id number] EMILY: 08/29/18-[address] [facility] [address]: Samir Morales MD REQ: [id number] RECD: 08/29/18-1214 STATUS: JU AGUILAR DR: Constance Lares MD _ SOURCE: URINE SPDESC: ORDERED: Urine Culture QUERIES: Urine Source: Clean Catch Procedure Result Reported Site Urine Culture Final 08/30/18- 1219 ML No Growth (<1,000 CFU/mL) * ML - Main Lab . END OF REPORT DEPARTMENT OF PATHOLOGY, [address] [place] [address] Kurt Pitt M.D. Director [facility] # [id number] 4 SEE RESULT BELOW Name: ROCAEL PHAMYHTLONG : [address]: Neeta Riggs MD Acct: [id number] Unit: [id number] AGE: 66 Location: [place] [address] Re09/13/16 Dis: 09/15/16 SEX: F Status: DIS Mo SPEC: [id number] EMILY: 09/14/[address] [facility] [address]: Loco Karimi MD REQ: [id number] RECD: 09/14/16 STATUS: SOUT _ ORDERED: LEVEL [...] performed at Main Lab DEPARTMENT OF PATHOLOGY, [address] [place] [address] Kurt Pitt M.D. Director [facility] # [id number] RUN DATE: 09/15/16 [facility] LAB LIVE PAGE 2 Patient: VEROMARILY [id number] (Continued) MICROSCOPIC DESCRIPTION (Continued) MICROSCOPIC DESCRIPTION Histologic [...] performed at Main Lab DEPARTMENT OF PATHOLOGY, [address] [place] [address] Kurt Pitt M.D. Director [facility] # [id number] 5 No Parasites Seen 6 Kurt Pitt Procedures Date Code Description Status 09/11/2018 50028 TKR Total Knee Replacement Completed 09/11/2018 64553 TKR Total Knee Replacement Completed 08/02/201890142 Inject/Drain Joint/Bursa Major W/O US Completed 06/15/2018 23213 Hemorrhoidectomy, Internal, By Rubber Band Ligation(S) Completed 06/01/2018 20862 Hemorrhoidectomy, Internal, By Rubber Band Ligation(S) Completed 04/12/201857754 Inject/Drain Joint/Bursa Major W/O US Completed 11/30/201750872 Inject/Drain Joint/Bursa Major W/O US Completed 07/27/201700255 Inject/Drain Joint/Bursa Major W/O US Completed 03/23/201738262 Inject/Drain Joint/Bursa Major W/O US Completed 11/17/2016 23103 Inject/Drain Joint/Bursa Major W/O US Completed 09/14/2016 01292 Each Additional Biopsy Completed 09/14/2016 56577 Biopsy Skin Lesion Single Completed 09/09/2016 43764 EKG, Interpretation Only Completed 07/14/201612755 Inject/Drain Joint/Bursa Major W/O US Completed 03/17/201607921 Inject/Drain Joint/Bursa Major W/O US Completed 10/02/2015 03124 Inject/Drain Joint/Bursa Major W/O US Completed 05/29/2015 58012 Inject/Drain Joint/Bursa Major W/O US Completed 02/05/201551970 Inject/Drain Joint/Bursa Major W/O US Completed 09/18/201417797 Inject/Drain Joint/Bursa Major W/O US Completed 06/05/201469945 Inject/Drain Joint/Bursa Major W/O US Completed 12/19/2013 69146 Rad Exam; Spine Cerv Comp Completed 12/19/2013 02994 Rad Exam; Spine, Cervical Completed 12/19/201338207 Inject/Drain Joint/Bursa Major W/O US Completed 07/18/2013 35049 Xray Knee 3 Views Completed 07/18/2013 61283 Rad Exam; Knee, Ap&L Completed 07/18/201311400 Inject/Drain Joint/Bursa Major W/O US Completed 03/21/201376964 Inject/Drain Joint/Bursa Major W/O US Completed 03/29/2012 64550 Xray Knee 3 Views Completed 03/29/2012 24657 Xray Knee 3 Views Completed 03/29/2012 83640 Rad Exam; Knee, Ap&L Completed 03/29/2012 98292 Rad Exam; Knee, Ap&L Completed Encounters Type Date Location Provider Dx Diagnosis [facility] T78.3xxA Angioneurotic 10:18a neha Hair M.D. edema, initial Hospitalists encounter J45.909 Unspecified asthma, uncomplicated E78.5 Hyperlipidemia, unspecified Office Visit 09/11/2018 [facility] T78.3xxA Angioneurotic 10:18a Assneha hein D.O. edema, initial Hospitalists encounter I10 Essential (primary) hypertension E78.5 Hyperlipidemia, unspecified J45.909 Unspecified asthma, uncomplicated Office Visit 09/10/2018 [facility] T78.3xxA Angioneurotic 10:18a neha Hair D.O. edema, initial Hospitalists encounter I10 Essential (primary) hypertension E78.5 Hyperlipidemia, unspecified J45.909 Unspecified asthma, uncomplicated Office [facility] T78.3xxA Angioneurotic Visit 10:11a neha Hair II, M.D. edema, initial Hospitalists encounter Office 08/16/2018 [facility] Yana Glasgow7.12 Unilateral Visit 8:00a [facility] primary C.M.A. osteoarthritis, left knee Office 08/02/2018 [facility] Yana Glasgow7.11 Unilateral Visit 8:15a [facility] Luc[facility].Cornelius primary C.M.A. osteoarthritis, right knee Office 06/01/2018 Surgical Loco Karimi, K64.2 Third degree Visit 2:15p [facility], FACS hemorrhoids Office 04/12/2018 [facility] Yana Glasgow7.12 Unilateral Visit 8:00a [facility] primary C.M.A. osteoarthritis, left knee Office 11/30/2017 Yana Lazo7.12 Unilateral Visit 9:30a [facility] MDonna primary C.M.A. osteoarthritis, left knee Office 03/23/2017 [facility]opedic Samir Morales M54.16 Radiculopathy, Visit 9:45a [facility] lumbar region C.M.A. M17.12 Unilateral primary osteoarthritis, left knee M54.16 Radiculopathy, lumbar region Office Visit 09/15/2016 9:43a [facility] Shields R21 Rash and other Infectious [facility] Bradley nonspecific skin Diseases eruption T78.3xxA Angioneurotic edema, initial encounter Z83.1 Family history of other infectious and parasitic diseases Office Visit 09/15/2016 [facility] rOlin L50.8 Other 3:38p Assoc,pc DEBRA Momin urticaria Hospitalists J45.909 Unspecified asthma, uncomplicated I10 Essential (primary) hypertension Office Visit 09/13/2016 3:37p [facility] Arsalan L50.8 Other urticaria Assoc,pc Umesh Peña Hospitalists J45.909 Unspecified asthma, uncomplicated I10 Essential (primary) hypertension [facility] 2:26p Assoc,neha Mccrary M.D. edema, subsequent Hospitalists encounter I10 Essential (primary) hypertension E78.5 Hyperlipidemia, unspecified J45.909 Unspecified asthma, uncomplicated Office Visit 09/11/2016 [facility] T78.3xxD Angioneurotic 2:25p Assoc,neha Johnson D.OMelina edema, subsequent Hospitalists encounter I10 Essential (primary) hypertension E78.5 Hyperlipidemia, unspecified J45.909 Unspecified asthma, uncomplicated Office Visit 09/10/2016 [facility] T78.3xxD Angioneurotic 2:25p Assoc,neha Johnson D.OMelina edema, subsequent Hospitalists encounter I10 Essential (primary) hypertension E78.5 Hyperlipidemia, unspecified J45.909 Unspecified asthma, uncomplicated Office [facility] T78.3xxD Angioneurotic Visit 2:24p Assoc,neha MORALES M.D. edema, subsequent Hospitalists encounter I10 Essential (primary) hypertension E78.5 Hyperlipidemia, unspecified J45.909 Unspecified asthma, uncomplicated Office Visit 03/17/2016 [facility] Samir M17.12 Unilateral primary 2:45p [facility] Morales osteoarthritis, left C.M.A. knee Office Visit 09/18/2014 Orthopedic Samir 715.96 Osteoarthrosis 2:45p [facility] Morales Unspec Genlzd Or C.M.A. Localized Lower Leg Office Visit 06/05/2014 Orthopedic Barbara 715.96 Osteoarthrosis 3:30p [facility] ABHIJEET Lopez Unspec Genlzd Or C.M.A. Localized Lower Leg Office Visit 04/19/2014 Neurosurgery Bhargav Glenys 723.0 Stenosis Spinal 1:00p [facility] [...] [facility] Yane Unspec Genlzd Or C.M.A. RPA-C Localized Lower [...] C.M.A. Localized Lower Leg Office Visit 09/20/2012 [facility] Husam Shields 780.60 Fever, Unspecified 1:20p For Infectious Chris Bradley Diseases Office Visit 09/06/2012 Orthopedic Samir Morales 715.96 Osteoarthrosis 8:30a [facility] Mendoza Or C.M.AMelina Localized Lower Leg 719.46 Pain Joint Lower Leg Office Visit 06/08/2012 Orthopedic Samir 715.96 Osteoarthrosis 8:30a [facility] Morales Genjeromy Or C.M.A. Localized Lower Leg Office Visit 03/29/2012 Orthopedic Samir 715.96 Osteoarthrosis 8:00a [facility] Morales Or C.M.A. Localized Lower Leg Plan of Treatment Future Appointment(s):10/04/2018 1:00 pm - Samir Morales M.D. at [facility]09/22/2018 - Liss Garrido M.D.Z47.1 Aftercare following joint replacement surgeryNew Therapy:Physical TherapyFollow up:Follow up: 4 weeks with Andrew
[2018-10-15] MEDS ORDERED: Ondansetron ODT TAB* 4 MG PO ONE (18:20)
[2018-10-15 18:21] VITALS: BP 159/83
[2018-10-15] MEDS ORDERED: NS 0.9% 1000 ML** 1,000 ML IV ONE (18:34)
[2018-10-15] MEDS ORDERED: Ondansetron INJ* 2 MG/ML VIAL IV ONE (18:34)
--- NOTE | 2018-10-15 18:50 | UC ---
Nausea/Vomiting/Diarrhea HPI - HPI Summary HPI Summary: 2 DAYS OF WORSENING NAUSEA AND VOMITING. TODAY HAS BEEN RETCHING EVERY 20 MINUTES. STATES SHE RUNS CONSTIPATED AT BASELINE AND HAS ALSO BEEN TAKING TRAMADOL REGULARLY SINCE 09/11/18 AFTER KNEE REPLACEMENT SURGERY. IS UNABLE TO KEEP ANY FOOD DOWN. NO FEVER. - History of Current Complaint Chief Complaint: UCGeneralIllness Stated Complaint: VOMITING Time Seen by Provider: 10/15/18 18:21 Hx Obtained From: Patient, Family/Customs Agent - Hx Last Menstrual Period: post Onset/Duration: Gradual Onset, Lasting Days, Still Present Timing: Constant Severity Initially: Moderate Severity Currently: Severe Pain Intensity: 1 Pain Scale Used: 0-10 Numeric Aggravating Factor(s): Nothing Alleviating Factor(s): Nothing Nausea/Vomiting Presence: Nauseated, Vomiting Vomiting Frequency: Every 15-60 minutes Nausea/Vomiting Duration: 2-3 days Vomiting Characteristics: Retching, Nonbilious Diarrhea Presence: No - Allergies/Home Medications Allergies/Adverse Reactions: Allergies Allergy/AdvReac Type Severity Reaction Status Date / Time aspirin Allergy Severe upset Verified 10/15/18 18:22 stomach Tree Nuts Allergy Severe Headache Verified 10/15/18 18:22 egg Allergy Intermediate Itching Verified 10/15/18 18:22 shellfish derived Allergy Intermediate Rash Verified 10/15/18 18:22 acetaminophen [From [place]] Allergy Unknown Unknown Verified 10/15/18 18:22 Reaction Details hydrocodone [From [place]] Allergy Unknown Unknown Verified 10/15/18 18:22 Reaction Details sulfamethoxazole Allergy Unknown Unknown Verified 10/15/18 18:22 Reaction Details trimethoprim [From Bactrim] Allergy Unknown Unknown Verified 10/15/18 18:22 Reaction Details salmon oil Allergy Unknown Verified 10/15/18 18:22 Reaction Details SALMON Allergy Unknown Unknown Uncoded 10/15/18 18:22 Reaction Details PMH/Surg Hx/FS Hx/Imm Hx Cardiovascular History: Hypertension Respiratory History: Asthma - Surgical History Surgical History: Yes Surgery Procedure, Year, and Place: CATARACTS - Family History Known Family History: Positive: Other - No Fhx of breast CA. Family History: No FHx of breast CA. - Social History Alcohol Use: None Substance Use Type: None Smoking Status (MU): Never Smoked Tobacco Amount Used/How Often: DEC FROM LUNG CA, PT EXPOSED TO 2ND HAND SMOKE Have You Smoked in the Last Year: No Household Exposure Type: Cigarettes - Immunization History Most Recent Influenza Vaccination: none Most Recent Pneumonia Vaccination: none Review of Systems All Other Systems Reviewed And Are Negative: Yes Constitutional: Positive: Negative Skin: Positive: Negative Respiratory: Positive: Negative Cardiovascular: Positive: Negative Gastrointestinal: Positive: Vomiting, Nausea Genitourinary: Positive: Negative Physical Exam Appearance: Ill-Appearing - MOANING, HEAVING, RETCHING, Pain Distress - MODERATE Vital Signs: Initial Vital Signs Temp 98.2 F 10/15/18 18:05 Pulse 74 10/15/18 18:05 Resp 16 10/15/18 18:05 BP 159/83 10/15/18 18:05 Pulse Ox 100 10/15/18 18:05 Vital Signs Reviewed: Yes Eyes: Positive: Conjunctiva Clear ENT: Positive: Hearing grossly normal Neck: Positive: Supple Respiratory Exam: Normal Cardiovascular Exam: Normal Abdomen Description: Positive: Nontender, Soft. Negative: Guarding Musculoskeletal: Positive: No Edema Neurological: Positive: Alert Psychological: Positive: Age Appropriate Behavior Skin: Negative: Rashes Naus/Vom/Diarrhea Course/Dx - Course Course Of Treatment: PT VIOLENTLY RETCHING, HEAVING, GASPING AND MOANING IN THE UC. STRUGGLES WITH CONSTIPATION AT BASELINE. HAS BEEN ON TRAMADOL FOR PAIN S/P KNEE REPLACEMENT . CAN NOT SAY IF CONSTIPATION IS ANY WORSE THAN NORMAL. FEELS BLOATED. CONCERN FOR OBSTRUCTION. WILL SEND TO [facility] FOR FURTHER EVAL. - Differential Dx/Diagnosis Provider Diagnosis: Nausea & vomiting Condition At Discharge: Fair - Physician Notification/Consults Discussed Case/Management/Disposition Of Patient With: Wilbert Costa - TO [facility] Time Discussed With Above Provider: 18:38 Instructed by Provider To: MD Will See In ED Discharge - Sign-Out/Discharge Documenting (check all that apply): Patient Departure All imaging exams completed and their final reports reviewed: No Studies - Discharge Plan Condition: Fair Disposition: TRANS HIGHER LVL OF CARE FAC Referrals: Constance Lares MD [Primary Care Provider] - - Billing Disposition and Condition Condition: FAIR Disposition: Trans Higher Lvl of Care Fac
== END 2018-10-15 19:15 | disposition short-term general hospital (02) ==
LOC: UCEAST 17:53
DX: R11.2 Nausea with vomiting, unspecified (principal); I10 Essential (primary) hypertension; Z88.2 Allergy status to sulfonamides
CPT/HCPCS: 96360; 96374; 99213; A9270-GY; G0463; J2405

== ENCOUNTER 2018-10-15 19:24 | Emergency (ER) | payer MEDICARE, MEDICAID ==
[2018-10-15] MEDS ORDERED: NS 0.9% 1000 ML** 1,000 ML IV ONE (19:45)
[2018-10-15] MEDS ORDERED: Ondansetron INJ* 2 MG/ML VIAL IV ONE (19:45)
[2018-10-15 20:23] LABS: ABS Basophils 0.1 10^3/ul (0-0.2); ABS Eosinophils 0.1 10^3/ul (0-0.6); ABS Lymphocytes 1.8 10^3/ul (1.0-4.8); ABS Monocytes 0.6 10^3/ul (0-0.8); ABS Neutrophils 4.4 10^3/ul (1.5-7.7); Eosinophil % 1.5 %; Hematocrit 39 % (35-47); Hemoglobin 13.2 g/dL (12.0-16.0); Lymphocyte % 25.9 %; Mean Corpuscular HGB Conc 34 g/dL (31-36); Mean Corpuscular Hemoglobin 30 pg (27-31); Mean Corpuscular Volume 88 fL (80-97); Mean Platelet Volume 8.3 fL (7.4-10.4); Nucleated Red Blood Cells % 0.1; Platelet Count 232 10^3/uL (150-450); Red Blood Count 4.46 10^6 /uL (3.70-4.87); Red Cell Distribution Width 14 % (10-15)
[2018-10-15 20:35] LABS: Urine Appearance Clear; Urine Bacteria 1+ (Absent); Urine Bilirubin Negative (Negative); Urine Blood 2+ (Negative); Urine Color Yellow; Urine Glucose Negative (Negative); Urine Ketones Trace (Negative); Urine Nitrite Negative (Negative); Urine Protein Negative (Negative); Urine Red Blood Cell 3+(>10/hpf) (Absent); Urine Specific Gravity 1.006 (1.010-1.030); Urine Urobilinogen Negative (Negative); Urine White Blood Cell 1+(6-10/hpf) (Absent)
[2018-10-15 20:41] LABS: ALT 22 U/L (7-52); AST 53 U/L (13-39); Albumin 4.2 g/dL (3.2-5.2); Albumin/Globulin Ratio 1.4 (1-3); Alkaline Phosphatase 54 U/L (34-104); Anion Gap 9 mmol/L (2-11); BUN/Creatinine Ratio 25.4 (8-20); Blood Urea Nitrogen 17 mg/dL (6-24); C Reactive Protein < 1.00 mg/L (<8.01); CO2 Carbon Dioxide 25 mmol/L (22-32); Calcium 9.2 mg/dL (8.6-10.3); Chloride 108 mmol/L (101-111); EGFR African American 106.2 (>60); EGFR Non-African American 87.8 (>60); Globulin 3.1 g/dL (2-4); Glucose 108 mg/dL (70-100); Potassium 3.4 mmol/L (3.5-5.0); Sodium 142 mmol/L (135-145); Total Protein 7.3 g/dL (6.4-8.9)
[2018-10-15] MEDS ORDERED: Cephalexin CAP* 500 MG PO ONE (22:21)
[2018-10-15] MEDS ORDERED: Ondansetron ODT TAB* 4 MG PO ONE (22:21)
--- NOTE | 2018-10-15 22:26 | ED ---
Nausea/Vomiting/Diarrhea HPI - HPI Summary HPI Summary: Patient complains of sudden onset nausea vomiting and burning with urination 2 days. Vomiting 7 today. Sent from convenient care to the ED for further evaluation. Complains of decreased by mouth intake and interest in food times months as well as insomnia times months. Patient stopped Coumadin 6 days ago per PCP. Patient taking Coumadin status post knee surgery 09/11/18. Patient has been taking tramadol for postsurgical pain. Denies fever, cough, sore throat, CP, SOB, abdominal pain, change in urine, change in BM. Medical history is as reflux, asthma, allergies, HTN. Nonsmoker. - History of Current Complaint Chief Complaint: EDNauseaVomitDiarrh Stated Complaint: NAUSEA/VOMITING PER EMS Time Seen by Provider: 10/15/18 19:43 Hx Obtained From: Patient, Family/Hospitality Job Titles Hx Last Menstrual Period: post Onset/Duration: Sudden Onset, Lasting Days Severity Currently: None Pain Intensity: 5 Pain Scale Used: 0-10 Numeric Aggravating Factor(s): Food Alleviating Factor(s): Nothing Nausea/Vomiting Presence: Nauseated, Vomiting Vomiting Characteristics: Nonbilious Diarrhea Presence: No - Allergies/Home Medications Allergies/Adverse Reactions: Allergies Allergy/AdvReac Type Severity Reaction Status Date / Time aspirin Allergy Severe upset Verified 10/15/18 19:36 stomach Tree Nuts Allergy Severe Headache Verified 10/15/18 19:36 egg Allergy Intermediate Itching Verified 10/15/18 19:36 shellfish derived Allergy Intermediate Rash Verified 10/15/18 19:36 acetaminophen [From [place]] Allergy Unknown Unknown Verified 10/15/18 19:36 Reaction Details hydrocodone [From [place]] Allergy Unknown Unknown Verified 10/15/18 19:36 Reaction Details sulfamethoxazole Allergy Unknown Unknown Verified 10/15/18 19:36 Reaction Details trimethoprim [From B[place]] Allergy Unknown Unknown Verified 10/15/18 19:36 Reaction Details salmon oil Allergy Unknown Verified 10/15/18 19:36 Reaction Details SALMON Allergy Unknown Unknown Uncoded 10/15/18 19:36 Reaction Details PMH/Surg Hx/FS Hx/Imm Hx Endocrine/Hematology History: Denies: Hx Bone Marrow Disease, Hx Diabetes, Hx Sickle Cell Disease, Hx Thyroid Disease, Hx Anemia Cardiovascular History: Reports: Hx Hypertension, Other Cardiovascular Problems/ Disorders - hyperlipidemia Denies: Hx Pacemaker/ICD Respiratory History: Reports: Hx Asthma, Hx Sleep Apnea - SLEEP STUDY DONE 10 YRS AGO, NEVER F/U TO GET CPAP, Other Respiratory Problems/Disorders - bronchitis Denies: Hx Chronic Obstructive Pulmonary Disease (COPD) GI History: Reports: Hx Gastroesophageal Reflux Disease Denies: Hx Ulcer History: Reports: Hx Kidney Stones, Other Problems/Disorders - MILD STRESS INCONTINENCE Denies: Hx Kidney Infection, Hx Renal Disease Musculoskeletal History: Reports: Hx Arthritis - OSTEOARTHRITIS, Other Musculoskeletal History - pain all over, gives out when walking,sudden x2 weeks Sensory History: Reports: Hx Cataracts - BILAT, Hx Contacts or Glasses - GLASSES , Hx Glaucoma Denies: Hx Hearing Aid Opthamlomology History: Reports: Hx Cataracts - BILAT, Hx Contacts or Glasses - GLASSES, Hx Glaucoma Neurological History: Reports: Hx Headaches - OCCASIONAL Denies: Hx Migraine Psychiatric History: Reports: Hx Anxiety, Hx Depression Denies: Hx Attention Deficit Hyperactivity Disorder, Hx Eating Disorder, Hx Panic Disorder, Hx Post Traumatic Stress Disorder, Hx Inpatient Treatment, Hx Community Mental Health Tx, Hx Schizophrenia, Hx Bipolar Disorder, Hx Suicide Attempt, Hx of Violent Episodes Against Others, Hx Substance Abuse, Other Psychiatric Issues/Disorders - Cancer History Hx Chemotherapy: No Hx Radiation Therapy: No - Surgical History Surgery Procedure, Year, and Place: CATARACTS Hx Anesthesia Reactions: No Infectious Disease History: No Infectious Disease History: Denies: Hx Clostridium Difficile, Hx Hepatitis, Hx Human Immunodeficiency Virus (HIV), Hx of Known/Suspected MRSA, Hx Shingles, Hx Tuberculosis, Hx Known/ Suspected VRE, Hx Known/Suspected VRSA, History Other Infectious Disease, Traveled Outside the [place] in Last 30 Days - Family History Known Family History: Positive: Other - No Fhx of breast CA. Family History: No FHx of breast CA. - Social History Alcohol Use: None Hx Substance Use: No Substance Use Type: Reports: None Hx Tobacco Use: No Smoking Status (MU): Never Smoked Tobacco Amount Used/How Often: DEC FROM LUNG CA, PT EXPOSED TO 2ND HAND SMOKE Have You Smoked in the Last Year: No Review of Systems Constitutional: Negative Eyes: Negative ENT: Negative Cardiovascular: Negative Respiratory: Negative Positive: Vomiting, Nausea Positive: burning Musculoskeletal: Negative Skin: Negative Neurological: Negative Psychological: Normal All Other Systems Reviewed And Are Negative: Yes Physical Exam - Summary Physical Exam Summary: Abdomen soft nontender. No active vomiting here in the ED. Lung sounds clear to auscultation bilaterally. Heart RRR. ENT exam unremarkable. Triage Information Reviewed: Yes Vital Signs On Initial Exam: Initial Vitals Temp Pulse Resp BP Pulse Ox 98.0 F 74 16 180/85 97 10/15/18 19:35 10/15/18 19:35 10/15/18 19:35 10/15/18 19:35 10/15/18 19:35 Vital Signs Reviewed: Yes Appearance: Positive: Well-Appearing Skin: Positive: Warm Head/Face: Positive: Normal Head/Face Inspection Eyes: Positive: Normal ENT: Positive: Normal ENT inspection Neck: Positive: Supple Respiratory/Lung Sounds: Positive: Clear to Auscultation Cardiovascular: Positive: Normal Abdomen Description: Positive: Nontender Musculoskeletal: Positive: Normal Neurological: Positive: Normal Psychiatric: Positive: Normal AVPU Assessment: Alert - [place] Coma Scale Best Eye Response: 4 - Spontaneous Best Motor Response: 6 - Obeys Commands Best Verbal Response: 5 - Oriented Coma Scale Total: 15 Diagnostics - Vital Signs Vital Signs Temp Pulse Resp BP Pulse Ox 10/15/18 20:22 71 168/99 98 10/15/18 19:35 98.0 F 74 16 180/85 97 - Laboratory Lab Results: Lab Results 10/15/18 10/15/18 10/15/18 Range/Units 20:06 20:15 20:15 WBC 7.0 (3.5-10.8) 10^3/uL RBC 4.46 (3.70-4.87) 10^6 /uL Hgb 13.2 (12.0-16.0) g/dL Hct 39 (35-47) % MCV 88 (80-97) fL MCH 30 (27-31) pg MCHC 34 (31-36) g/dL RDW 14 (10-15) % Plt Count 232 (150-450) 10^3/uL MPV 8.3 (7.4-10.4) fL Neut % (Auto) 63.3 % Lymph % (Auto) 25.9 % [place] % (Auto) 8.5 % Eos % (Auto) 1.5 % Baso % (Auto) 0.8 % Absolute Neuts (auto) 4.4 (1.5-7.7) 10^3/ul Absolute Lymphs (auto) 1.8 (1.0-4.8) 10^3/ul Absolute Monos (auto) 0.6 (0-0.8) 10^3/ul Absolute Eos (auto) 0.1 (0-0.6) 10^3/ul Absolute Basos (auto) 0.1 (0-0.2) 10^3/ul Absolute Nucleated RBC 0.0 10^3/ul Nucleated RBC % 0.1 Sodium 142 (135-145) mmol/L Potassium 3.4 L (3.5-5.0) mmol/L Chloride 108 (101-111) mmol/L Carbon Dioxide 25 (22-32) mmol/L Anion Gap 9 (2-11) mmol/L BUN 17 (6-24) mg/dL Creatinine 0.67 (0.51-0.95) mg/dL Est GFR ( Amer) 106.2 (>60) Est GFR (Non-Af Amer) 87.8 (>60) BUN/Creatinine Ratio 25.4 H (8-20) Glucose 108 H (70-100) mg/dL Calcium 9.2 (8.6-10.3) mg/dL Total Bilirubin 0.70 (0.2-1.0) mg/dL AST 53 H (13-39) U/L ALT 22 (7-52) U/L Alkaline Phosphatase 54 (34-104) U/L C-Reactive Protein < 1.00 (<8.01) mg/L Total Protein 7.3 (6.4-8.9) g/dL Albumin 4.2 (3.2-5.2) g/dL Globulin 3.1 (2-4) g/dL Albumin/Globulin Ratio 1.4 (1-3) Lipase 29 (11.0-82.0) U/L Urine Color Yellow Urine Appearance Clear Urine pH 7.0 (5-9) Ur Specific [place] 1.006 L (1.010-1.030) Urine Protein Negative (Negative) Urine Ketones Trace A (Negative) Urine Blood 2+ A (Negative) Urine Nitrate Negative (Negative) Urine Bilirubin Negative (Negative) Urine Urobilinogen Negative (Negative) Ur Leukocyte Esterase Trace A (Negative) Urine WBC (Auto) 1+(6-10/hpf) A (Absent) Urine RBC (Auto) 3+(>10/hpf) A (Absent) Urine Bacteria 1+ A (Absent) Urine Glucose Negative (Negative) Result Diagrams: 10/15/18 20:15 10/15/18 20:15 Lab Statement: Any lab studies that have been ordered have been reviewed, and results considered in the medical decision making process. Naus/Vom/Diarrhea Course/Dx - Course Course Of Treatment: Patient complains of sudden onset nausea vomiting and burning with urination 2 days. Vomiting 7 today. Sent from convenient care to the ED for further evaluation. Complains of decreased by mouth intake and interest in food times months as well as insomnia times months. Patient stopped Coumadin 6 days ago per PCP. Patient taking Coumadin status post knee surgery 09/11/18. Patient has been taking tramadol for postsurgical pain. Denies fever, cough, sore throat, CP, SOB, abdominal pain, change in urine, change in BM. Medical history is as reflux, asthma, allergies, HTN. Nonsmoker. Physical exam:Abdomen soft nontender. No active vomiting here in the ED. Lung sounds clear to auscultation bilaterally. Heart RRR. ENT exam unremarkable. Vital signs within normal limits. No active vomiting here in the ED. BUN/creatinine ratio 25. Labs otherwise unremarkable. Urine positive for UTI. Patient given prescription for Zofran and keflex. - Differential Dx/Diagnosis Provider Diagnosis: Nausea & vomiting, UTI (urinary tract infection) Condition At Discharge: Stable Discharge - Sign-Out/Discharge Documenting (check all that apply): Patient Departure Patient Received Moderate/Deep Sedation with Procedure: No - Discharge Plan Condition: Stable Disposition: HOME Prescriptions: Cephalexin CAP* [Keflex CAP*] 500 mg PO TID 7 Days #21 cap Ondansetron ODT TAB* [Zofran 4 MG Odt TAB*] 4 mg PO Q8H PRN 4 Days #14 tab.odt PRN Reason: Nausea Patient Education Materials: Urinary Tract Infection in Women (ED), Acute Nausea and Vomiting (ED) Referrals: Constance Lares MD [Primary Care Provider] - Additional Instructions: Follow-up with primary care and your improvement manager or gastroenterology Dr. Nova for further evaluation of chronic nausea and acid reflux. Return to the ED for any new or worsening symptoms. - Billing Disposition and Condition Condition: STABLE Disposition: Home
[2018-10-15 23:11] VITALS: BP 138/71
== END 2018-10-15 23:11 | disposition home or self-care (01) ==
LOC: ED 19:24
DX: R11.2 Nausea with vomiting, unspecified (principal); N39.0 Urinary tract infection, site not specified; I10 Essential (primary) hypertension
CPT/HCPCS: 36415; 71046; 80053; 81003; 81015; 83690; 85025; 86140; 87086; 96361; 96374; 99284; A9270-GY; J2405

== ENCOUNTER 2023-03-11 09:45 | Observation (INO) ==
[~2023-03-11 09:45] MED LIST changes: -Acetaminophen TAB* 325 MG PO ONE; +Buffered Lidocaine 1% SYRIN 1 ml INTRADERM ONE; -Buffered Lidocaine 1% SYRIN* 1 ML/SYRINGE INTRADERM ONE; -Dexamethasone IV* 4 MG/ML 1 ML (4 MG) IV SLOW PU ONE; -Famotidine TAB* 20 MG PO ONE; -Gabapentin CAP(*) 300 MG PO ONE; -Lactated Ringers 1000 ML Bag* 1,000 ML IV SCH; +Lactated Ringers 1000 ml BAG 1,000 ML IV SCH; -Tranexamic Acid 1,000 MG in NS 0.9% 50 ML* (outpatient use) IV SCH; -celeCOXIB CAP* 100 MG PO ONE
[2023-03-11] MEDS ORDERED: Lidocaine 2% PF 5 ML VIAL ONE (10:54)
[2023-03-11] MEDS ORDERED: fentaNYL 100 mcg/2 ml 50 MCG/ML VIAL ONE ×2 (10:54→16:59)
[2023-03-11] MEDS ORDERED: Midazolam 2 mg/2 ml VIAL 1 mg/ml 2 ml VIAL (2 mg) ONE ×2 (10:54→12:32)
[2023-03-11] MEDS ORDERED: Tranexamic Acid 1 GM/100ML BAG 2,000 MG/200 ML BAG IV ONE (11:18)
[2023-03-11] MEDS ORDERED: ceFAZolin 2 GM in NS PREMIX 2 GM/100 ML BAG IVPB ONE (11:18)
[2023-03-11 12:01] LABS: Rapid COVID-19 Molecular Undetected (Undetected)
[2023-03-11] MEDS ORDERED: ROPIVACAINE 5 MG/ML 30 ML BTL (0.5%) ONE ×2 (12:33→12:55)
[2023-03-11] MEDS ORDERED: Ondansetron 4 mg VIAL 2 MG/ML 2 ml VIAL IV PRN ×2 (12:46→15:26)
[2023-03-11] MEDS ORDERED: HYDROmorphone 1 MG/1 ML SYRINGE IV PRN (12:46)
[2023-03-11] MEDS ORDERED: Acetaminophen IV 1 GM/100ML 1,000 MG/100 ML BAG IV PRN (12:46)
[2023-03-11] MEDS ORDERED: Naloxone 0.4 mg VIAL 0.4 mg/ml 1 ml VIAL IV PRN (12:46)
[2023-03-11] MEDS ORDERED: Ondansetron 4 mg VIAL 2 MG/ML 2 ml VIAL ONE ×2 (15:06→16:22)
[2023-03-11] MEDS ORDERED: Dexamethasone IV 4 MG/ML VIAL 1 ml VIAL ONE (15:06)
[2023-03-11] MEDS ORDERED: Acetaminophen IV 1 GM/100ML 1,000 MG/100 ML BAG IV ONE (15:06)
[2023-03-11] MEDS ORDERED: Ondansetron ODT 4 mg TAB 4 MG TAB PO PRN (15:26)
[2023-03-11] MEDS ORDERED: Lactulose 30 ml UDC PO PRN (15:26)
[2023-03-11] MEDS ORDERED: Magnesium Hydroxide LIQ 30 ML UDC PO PRN (15:26)
[2023-03-11] MEDS ORDERED: Morphine 2 MG/ML SYRINGE IV PRN (15:26)
[2023-03-11] MEDS ORDERED: Lactated Ringers 1000 ml BAG 1,000 ML IV SCH (16:00)
[2023-03-11] MEDS ORDERED: ceFAZolin 1 GM ADVAN 1 GM in NS 0.9% 50 ML 50 ML IVPB SCH (16:00)
[2023-03-11] MEDS: fentaNYL 100 mcg/2 ml 50 MCG/ML VIAL IV PRN ×3 (17:02→17:26)
[2023-03-11] MEDS ORDERED: Albuterol HFA INHALER 8 gm MDI INH PRN (18:59)
[2023-03-11] MEDS: Magnesium Hydroxide LIQ 30 ML UDC PO SCH (21:26)
[2023-03-11] MEDS: ceFAZolin 1 GM ADVAN 1 GM in NS 0.9% 50 ML 50 ML IVPB SCH (21:37)
[2023-03-12] MEDS: ceFAZolin 1 GM ADVAN 1 GM in NS 0.9% 50 ML 50 ML IVPB SCH ×2 (05:55→13:46)
[2023-03-12] MEDS ORDERED: Mometasone/Formoter 200/5 MDI INH SCH (07:00)
[2023-03-12 07:06] LABS: Hematocrit 36.7 % (35-45); Hemoglobin 12.3 g/dL (11.5-14.3); Mean Platelet Volume 8.4 fL (7.5-11.2); Platelet Count 251 10^3/uL (150-450)
[2023-03-12 07:18] LABS: Calcium 8.6 mg/dL (8.6-10.3); Creatinine, Serum 0.81 mg/dL (0.51-0.95); Potassium 3.9 mmol/L (3.5-5.0); eGFR CKD-EPI 77.6 (>60)
[2023-03-12] MEDS ORDERED: Vitamin THERAPEUTIC TAB PO SCH (09:00)
[2023-03-12] MEDS: Magnesium Hydroxide LIQ 30 ML UDC PO SCH (09:01)
[2023-03-12 14:20] VITALS: BP 116/61
== END 2023-03-12 14:40 | disposition home or self-care (01) ==
LOC: INTOOBSV 11:02 → AA 11:02 → SSU 15:26
PROVIDERS: ADMIT Orthopaedic Surgery Adult Reconstructive Orthopaedic Surgery; ATTEND Orthopaedic Surgery Adult Reconstructive Orthopaedic Surgery